=== PATIENT | female | born 1940 | race Caucasian/White ===

== ENCOUNTER 2016-11-28 17:52 | Emergency (ER) | payer MEDICARE, OTHER ==
[2016-11-28] MEDS ORDERED: IPRATROPIUM 0.5 MG/2.5 ML NEBU INHALATION STA (18:30)
[2016-11-28] MEDS ORDERED: SODIUM CHLORIDE 0.9% 1,000 ML IV STA (18:30)
[2016-11-28] MEDS ORDERED: SODIUM CHLORIDE 0.9% 500 ML IV STA (18:30)
[2016-11-28] MEDS ORDERED: LEVALBUTEROL NEB 1.25 MG/3 ML AMP INHALATION STA (18:31)
[2016-11-28] MEDS ORDERED: KETOROLAC 30 MG/ML 1 ML VIAL IVP STA (18:31)
[2016-11-28 19:15] LABS: Basophils # (A) 0.1 k/uL (0-0.2); Basophils % (A) 1 %; CH 28.2; CHCM 30.5; Eosinophils % (A) 0 %; HCT 28.3 % (34.0-46.0); HDW 3.34; HGB 8.6 gm/dL (11.4-16.0); Hypochromasia Marked; Luc # (Auto) 0.15; Luc % (Auto) 3; Lymphocytes # (A) 0.6 k/uL (1.0-4.8); Lymphocytes % (A) 13 %; MCH 28.2 pg (25.0-35.0); MCHC 30.3 g/dL (31.0-37.0); Mean Platelet Volume 8.5; Monocytes # (A) 0.3 k/uL (0-1.0); Monocytes % (A) 8 %; Neutrophils # (A) 3.3 k/uL (1.3-7.7); Neutrophils % (A) 75 %; RBC 3.04 m/uL (3.80-5.40); RDW 14.9 % (11.5-15.5); WBC 4.4 k/uL (3.8-10.6); WBC (Perox) 4.59
[2016-11-28 19:25] LABS: ALT 22 U/L (9-52); AST 24 U/L (14-36); Alkaline Phosphatase 58 U/L (38-126); Anion Gap 9 mmol/L; Blood Urea Nitrogen 16 mg/dL (7-17); Carbon Dioxide 39 mmol/L (22-30); Chloride 90 mmol/L (98-107); Glucose 96 mg/dL (74-99); Non-African American GFR(MDRD) >60 (>60 ml/min/1.73 sqM); Potassium 3.7 mmol/L (3.5-5.1); Sodium 138 mmol/L (137-145); Total Bilirubin 0.7 mg/dL (0.2-1.3); Total Protein 7.1 g/dL (6.3-8.2)
--- NOTE | 2016-11-28 19:37 | ED ---
General Adult HPI - General Source: patient Mode of arrival: wheelchair Limitations: no limitations <Joey Shaw - Last Filed: 11/28/16 19:35> <Pascual Mcintosh - Last Filed: 11/28/16 20:53> - General Chief complaint: Shortness of Breath Stated complaint: weakness,Diff breathing Time Seen by Provider: 11/28/16 18:17 - History of Present Illness Initial comments: This 75-year-old white female presents complaining of urinary frequency. This started yesterday. She denies any dysuria or urgency. She's also had spells over this past evening of shivering and shaking but denies any known fevers. She's felt somewhat weak and fatigued. She does have history of previous urinary infections. She does have a history of lung cancer which is been in remission for the last 5 years. She has a history of oxygen dependent COPD. She has chronic cough and occasional shortness of breath. She states that this is unchanged from her in normal cough and shortness of breath except for that she missed her 4:00 breathing treatment. She was seen at urgent care prior to arrival and sent to our ER for further evaluation. No other complaints or modifying factors. (Joey Shaw) - Related Data Home Medications Medication Instructions Recorded Confirmed Mirtazapine [Remeron] 15 mg PO HS 07/17/14 11/28/16 clonazePAM [KlonoPIN] 0.25 mg PO QID PRN 07/17/14 11/28/16 Levalbuterol Hfa Inhaler [Xopenex 2 puff INHALATION QID PRN 11/20/14 11/28/16 Hfa Inhaler] Acetaminophen Tab [Tylenol] 325 mg PO Q4H PRN 06/15/15 11/28/16 Apixaban [Eliquis] 2.5 mg PO BID 06/15/15 11/28/16 Metoprolol Tartrate [Lopressor] 50 mg PO TID 06/15/15 11/28/16 Mometasone/Formoterol [Dulera 100 2 puff PO RT-Q12H 06/15/15 11/28/16 Mcg/5 Mcg Inhaler] amLODIPine [Norvasc] 5 mg PO DAILY 06/15/15 11/28/16 traMADol HCL [Ultram] 100 mg PO QID PRN 06/15/15 11/28/16 Lisinopril [Zestril] 10 mg PO TID 07/24/16 11/28/16 Cholecalciferol [Vitamin D3] 1,000 unit PO DAILY 11/28/16 11/28/16 Ipratropium Nebulized [Atrovent 0.5 mg INHALATION RT-QID PRN 11/28/16 11/28/16 Nebulized] Levalbuterol Nebulized [Xopenex 1.25 mg INHALATION RT-DAILY PRN 11/28/16 Nebulized] Multivitamin [Multivitamins Adult 1 tab PO DAILY 11/28/16 11/28/16 Gummies] Oxymetazoline 0.05% Nasl [place] 2 spray EA NOSTRIL DAILY PRN 11/28/16 11/28/16 [Afrin 0.05% Nasal [place]] Saline Nasal [place] 2 spray NASAL DAILY PRN 11/28/16 11/28/16 Previous Rx's Medication Instructions Recorded Levofloxacin [Levaquin] 500 mg PO DAILY #7 tab 11/28/16 Allergies Allergy/AdvReac Type Severity Reaction Status Date / Time erythromycin base Allergy Intermediate Unknown Verified 11/28/16 18:48 [Erythromycin Base] amoxicillin [From Augmentin] Allergy Nausea Verified 11/28/16 18:48 clavulanic acid Allergy Nausea Verified 11/28/16 18:48 [From Augmentin] Review of Systems ROS Other: All systems not noted in ROS Statement are negative. <Joey Shaw - Last Filed: 11/28/16 19:35> ROS Other: All systems not noted in ROS Statement are negative. <Pascual Mcintosh - Last Filed: 11/28/16 20:53> ROS Statement: Those systems with pertinent positive or pertinent negative responses have been documented in the HPI. Past Medical History Past Medical History: Atrial Fibrillation, Cancer, COPD, Hypertension Additional Past Medical History / Comment(s): Lung cancer History of Any Multi-Drug Resistant Organisms: None Reported Past Surgical History: Cholecystectomy Additional Past Surgical History / Comment(s): Right middle lobectomy, wedge resection of a right upper lobe lesion, radiation therapy/CyberKnife therapy to the lung nodule, resection of a esophageal cancer with esophagectomy trans- hiatal Additional Past Anesthesia/Blood Transfusion Reaction / Comment(s): slow to come out of anesthesia Past Psychological History: Anxiety Additional Psychological History / Comment(s): PT LIVES ALONE IN AN APARTMENT. SHE IS SELF SUFFICIENT. SHE HAS A SON AND ROSAURA WHO ARE ALWAYS AVAILABLE AND A BIG HELP TO PT. PT DRIVES A CAR. Smoking Status: Former smoker Past Alcohol Use History: None Reported Past Drug Use History: None Reported - Past Family History Father Family Medical History: Renal Disease, Vascular Disorder Additional Family Medical History / Comment(s): FATHER HAD PERIPHERAL VASCULAR TEST AND IT CAUSED HIM TO LOOSE A KIDNEY Mother Family Medical History: COPD <Joey Shaw - Last Filed: 11/28/16 19:35> General Exam Limitations: no limitations <Joey Shaw - Last Filed: 11/28/16 19:35> <Pascual Mcintosh - Last Filed: 11/28/16 20:53> - General Exam Comments Initial Comments: GENERAL: The patient is well nourished and well hydrated. VITAL SIGNS: Heart rate, blood pressure, respiratory rate reviewed as recorded in nurse's notes. EYES: Pupils are round and reactive. Extraocular movements are intact. No conjunctival / lid redness or swelling. ENT: No external evidence of injury, swelling, or ecchymosis. Airway is patent. Throat is clear. NECK: Nontender. No swelling or evidence of injury. No subcutaneous emphysema. Trachea is midline. No thyroid mass. HEART: Regular rate and rhythm. Good peripheral pulses. LUNGS/CHEST: Mild scattered wheezes noted. No respiratory distress. No ecchymosis, subcutaneous emphysema, or tenderness. ABDOMEN: Abdomen soft without tenderness. No palpable masses or organomegaly. No peritoneal signs. No abdominal wall swelling or ecchymosis. EXTREMITIES: No extremity tenderness. Normal muscle tone and function. No thoracolumbar tenderness. NEUROLOGIC: Sensation is grossly intact. Cranial nerve exam reveals face is symmetrical, tongue is midline, speech is clear. SKIN: No abrasions or ecchymosis is noted. No induration or masses noted. PSYCHIATRIC: Alert and oriented. Appropriate behavior and judgment. (Joey Shaw) Medical Decision Making - Lab Data Result diagrams: 11/28/16 19:00 11/28/16 19:00 <Joey Shaw - Last Filed: 11/28/16 19:35> - Lab Data Result diagrams: 11/28/16 19:00 11/28/16 19:00 <Pascual Mcintosh - Last Filed: 11/28/16 20:53> - Medical Decision Making The patient was seen and examined. An EKG was done which shows a normal sinus rhythm at a rate of 68. There is evidence of left ventricular hypertrophy. There is some inverted T waves in leads V1 and V2. The CO interval is 126, QRS duration is 96, and QTC intervals 438. The patient did receive a Xopenex and Atrovent breathing treatment. Studies are currently pending and further care will be passed off to Dr. Bautista. (Joey Shaw) Patient was signed out to me pending the remainder of her studies which have come back and point towards urinary tract infection as Dr. shaw was suspecting. I addition the patient does have some anemia but this is a chronic issue when searched the past labs. The patient does feel well after having the nebulized treatment. I did discuss admission to have course of antibiotics but the patient is refusing, wanting to take outpatient antibiotics. She will follow with her physician Dr. Watson. We discussed return parameters. (Pascual Mcintosh) - Lab Data Lab Results 11/28/16 11/28/16 11/28/16 Range/Units 19:00 19:00 20:15 WBC 4.4 (3.8-10.6) k/uL RBC 3.04 L (3.80-5.40) m/uL Hgb 8.6 L (11.4-16.0) gm/dL Hct 28.3 L (34.0-46.0) % MCV 93.0 (80.0-100.0) fL MCH 28.2 (25.0-35.0) pg MCHC 30.3 L (31.0-37.0) g/dL RDW 14.9 (11.5-15.5) % Plt Count 251 (150-450) k/uL Neutrophils % 75 % Lymphocytes % 13 % Monocytes % 8 % Eosinophils % 0 % Basophils % 1 % Neutrophils # 3.3 (1.3-7.7) k/uL Lymphocytes # 0.6 L (1.0-4.8) k/uL Monocytes # 0.3 (0-1.0) k/uL Eosinophils # 0.0 (0-0.7) k/uL Basophils # 0.1 (0-0.2) k/uL Hypochromasia Marked Sodium 138 (137-145) mmol/L Potassium 3.7 (3.5-5.1) mmol/L Chloride 90 L (98-107) mmol/L Carbon Dioxide 39 H (22-30) mmol/L Anion Gap 9 mmol/L BUN 16 (7-17) mg/dL Creatinine 0.86 (0.52-1.04) mg/dL Est GFR (MDRD) Af Amer >60 (>60 ml/min/1.73 sqM) Est GFR (MDRD) Non-Af >60 (>60 ml/min/1.73 sqM) Glucose 96 (74-99) mg/dL Calcium 9.0 (8.4-10.2) mg/dL Total Bilirubin 0.7 (0.2-1.3) mg/dL AST 24 (14-36) U/L ALT 22 (9-52) U/L Alkaline Phosphatase 58 (38-126) U/L Total Protein 7.1 (6.3-8.2) g/dL Albumin 3.9 (3.5-5.0) g/dL Urine Color Yellow Urine Appearance Cloudy H (Clear) Urine pH 6.0 (5.0-8.0) Ur Specific [place] 1.009 (1.001-1.035) Urine Protein 1+ H (Negative) Urine Glucose (UA) Negative (Negative) Urine Ketones Negative (Negative) Urine Blood Moderate H (Negative) Urine Nitrite Negative (Negative) Urine Bilirubin Negative (Negative) Urine Urobilinogen <2.0 (<2.0) mg/dL Ur Leukocyte Esterase Large H (Negative) Urine RBC >182 H (0-5) /hpf Urine WBC >182 H (0-5) /hpf Urine WBC Clumps Many H (None) /hpf Ur Squamous Epith Cells 5 H (0-4) /hpf Urine Bacteria Many H (None) /hpf Hyaline Casts 11 H (0-2) /lpf Urine Mucus Few H (None) /hpf Disposition <Joey Shaw - Last Filed: 11/28/16 19:35> <Pascual Mcintosh - Last Filed: 11/28/16 20:53> Clinical Impression: COPD exacerbation, Urinary tract infection, Anemia Disposition: HOME SELF-CARE Condition: Fair Instructions: Urinary Tract Infection in Women (ED) Prescriptions: Levofloxacin [Levaquin] 500 mg PO DAILY #7 tab Referrals: Alex Thomas MD [Primary Care Provider] - 1-2 days
--- NOTE | 2016-11-28 19:52 | XR ---
EXAMINATION TYPE: XR chest 2V DATE OF EXAM: 11/28/2016 7:39 PM COMPARISON: NONE HISTORY: Cough TECHNIQUE: Frontal and lateral views of the chest are obtained. FINDINGS: There is pulmonary hyperinflation and flattening of the diaphragm. There is a 3 cm area of masslike density in the lateral right upper lobe. There is fluid in the right major fissure. There a re no hilar masses. Thoracic aorta is atheromatous. There is no heart failure. There are chest leads. There is some interstitial infiltrate in the left lower lobe. IMPRESSION: COPD and probably fibrosis. There is pleural-based right upper lobe density that could r elate to loculated pleural fluid. There is some loculated fluid in a fissure over the heart that is p robably the right major fissure. No heart failure. I see no increasing pulmonary density compared to the chest x-ray of 11/20/2014. There is possible large air-filled thoracic esophagus.
[2016-11-28 20:18] VITALS: RESP 16
[2016-11-28 20:38] LABS: Appearance,Urine Cloudy (Clear); Bacteria,Urine Many /hpf; Bilirubin,Urine Negative (Negative); Glucose,Urine (UA) Negative (Negative); Ketones,Urine Negative (Negative); Leukocyte Esterase,Urine Large (Negative); Mucus,Urine Few /hpf; Nitrite,Urine Negative (Negative); Particle Count 113020; Protein,Urine 1+ (Negative); RBC,Urine >182 /hpf (0-5); Specific Gravity,Urine 1.009 (1.001-1.035); Squamous Epithelial Cell,Urine 5 /hpf (0-4); UA Billing (MACRO vs. MICRO) MICRO; Urobilinogen,Urine <2.0 mg/dL (<2.0); WBC,Urine >182 /hpf (0-5)
[2016-11-28] MEDS ORDERED: LEVOFLOXACIN 500 MG TAB PO STA (20:42)
[2016-11-28 20:52] VITALS: BP 155/70; PULSE 75; TEMP 97.8
== END 2016-11-28 21:30 | disposition home or self-care (01) ==
LOC: EC 17:52
DX: J44.1 Chronic obstructive pulmonary disease with (acute) exacerbation (principal); N39.0 Urinary tract infection, site not specified; D64.9 Anemia, unspecified; Z99.81 Dependence on supplemental oxygen; I10 Essential (primary) hypertension; I48.91 Unspecified atrial fibrillation; F41.9 Anxiety disorder, unspecified; Z85.118 Personal history of other malignant neoplasm of bronchus and lung; Z79.01 Long term (current) use of anticoagulants; Z79.51 Long term (current) use of inhaled steroids; Z79.899 Other long term (current) drug therapy; Z88.0 Allergy status to penicillin; Z88.1 Allergy status to other antibiotic agents; Z88.8 Allergy status to other drugs, medicaments and biological substances; Z87.891 Personal history of nicotine dependence
CPT/HCPCS: 36415; 94640; 80053; 85025; 81001; 87040; 87086; 87077; 87186; 71020; 99285; 96374; 96361 ×2; J1885; 93005

== ENCOUNTER 2016-12-03 09:57 | Inpatient (IN) | payer MEDICARE, OTHER ==
--- NOTE | 2016-12-03 10:15 | ED ---
Chest Pain HPI - General Chief Complaint: Chest Pain Stated Complaint: Chest Pain Time Seen by Provider: 12/03/16 10:00 Source: patient, EMS, RN notes reviewed, old records reviewed Mode of arrival: EMS Limitations: no limitations - History of Present Illness Initial Comments: This is a 76-year-old female history of lung cancer with resection also history of COPD and hypertension who is brought in by EMS with complaints of chest pain and tightness it was severe this morning she was noted have blood pressure 225/ 110 evidence of atrial flutter. Patient is cleared decreased oral intake over last couple days she states she's had some sick a couple days ago. She apparently was seen in the emergency department and thought to have a urinary tract infection was started on antibiotics cigarette by her doctor after a couple days of antibiotics. She denies any fevers chills or sweats just feels generally weak she was given 325 mg aspirin and 3 nitroglycerin the pain is now apparently gone. She stated she never had pain like this quite before. MD Complaint: chest pain, other - Related Data Home Medications Medication Instructions Recorded Confirmed Mirtazapine [Remeron] 15 mg PO HS 07/17/14 12/03/16 clonazePAM [KlonoPIN] 0.25 mg PO QID PRN 07/17/14 12/03/16 Levalbuterol Hfa Inhaler [Xopenex 2 puff INHALATION QID PRN 11/20/14 12/03/16 Hfa Inhaler] Acetaminophen Tab [Tylenol] 325 mg PO Q4H PRN 06/15/15 12/03/16 Apixaban [Eliquis] 2.5 mg PO BID 06/15/15 12/03/16 Metoprolol Tartrate [Lopressor] 50 mg PO TID 06/15/15 12/03/16 Mometasone/Formoterol [Dulera 100 2 puff PO RT-Q12H 06/15/15 12/03/16 Mcg/5 Mcg Inhaler] amLODIPine [Norvasc] 5 mg PO DAILY 06/15/15 12/03/16 traMADol HCL [Ultram] 100 mg PO QID PRN 06/15/15 12/03/16 Lisinopril [Zestril] 10 mg PO TID 07/24/16 12/03/16 Cholecalciferol [Vitamin D3] 1,000 unit PO DAILY 11/28/16 12/03/16 Ipratropium Nebulized [Atrovent 0.5 mg INHALATION RT-QID PRN 11/28/16 12/03/16 Nebulized] Levalbuterol Nebulized [Xopenex 1.25 mg INHALATION RT-DAILY PRN 11/28/16 Nebulized] Multivitamin [Multivitamins Adult 1 tab PO DAILY 11/28/16 12/03/16 Gummies] Oxymetazoline 0.05% Nasl [place] 2 spray EA NOSTRIL DAILY PRN 11/28/16 12/03/16 [Afrin 0.05% Nasal [place]] Saline Nasal [place] 2 spray NASAL DAILY PRN 11/28/16 12/03/16 Levofloxacin [Levaquin] 500 mg PO DIRECTED 12/03/16 12/03/16 Allergies Allergy/AdvReac Type Severity Reaction Status Date / Time erythromycin base Allergy Intermediate Unknown Verified 12/03/16 10:36 [Erythromycin Base] amoxicillin [From Augmentin] Allergy Nausea Verified 12/03/16 10:36 clavulanic acid Allergy Nausea Verified 12/03/16 10:36 [From Augmentin] Review of Systems ROS Statement: Those systems with pertinent positive or pertinent negative responses have been documented in the HPI. ROS Other: All systems not noted in ROS Statement are negative. EKG Findings - EKG Results: EKG: interpreted by [facility], sinus rhythm (Sinus rhythm rate 83. Arrival 128 QRS duration 82 daily since QTC of 386/453 incomplete right bundle-branch block LVH no definite acute ST-T wave elevation artifact is present.) Past Medical History Past Medical History: Atrial Fibrillation, Cancer, COPD, Hypertension Additional Past Medical History / Comment(s): Lung cancer History of Any Multi-Drug Resistant Organisms: None Reported Past Surgical History: Cholecystectomy Additional Past Surgical History / Comment(s): Right middle lobectomy, wedge resection of a right upper lobe lesion, radiation therapy/CyberKnife therapy to the lung nodule, resection of a esophageal cancer with esophagectomy trans- hiatal Additional Past Anesthesia/Blood Transfusion Reaction / Comment(s): slow to come out of anesthesia Past Psychological History: Anxiety Additional Psychological History / Comment(s): PT LIVES ALONE IN AN APARTMENT. SHE IS SELF SUFFICIENT. SHE HAS A SON AND ROSAURA WHO ARE ALWAYS AVAILABLE AND A BIG HELP TO PT. PT DRIVES A CAR. Smoking Status: Former smoker Past Alcohol Use History: None Reported Past Drug Use History: None Reported - Past Family History Father Family Medical History: Renal Disease, Vascular Disorder Additional Family Medical History / Comment(s): FATHER HAD PERIPHERAL VASCULAR TEST AND IT CAUSED HIM TO LOOSE A KIDNEY Mother Family Medical History: COPD General Exam - General Exam Comments Initial Comments: This is a well-developed sec appearing female she is somewhat lethargic Limitations: no limitations General appearance: alert, in no apparent distress Head exam: Present: atraumatic, normocephalic, normal inspection Eye exam: Present: normal appearance, PERRL, EOMI. Absent: scleral icterus, conjunctival injection, periorbital swelling ENT exam: Present: mucous membranes dry Neck exam: Present: normal inspection. Absent: tenderness, meningismus, lymphadenopathy Respiratory exam: Present: decreased breath sounds Cardiovascular Exam: Present: regular rate, normal rhythm, normal heart sounds. Absent: systolic murmur, diastolic murmur, rubs, gallop, clicks GI/Abdominal exam: Present: soft, normal bowel sounds. Absent: distended, tenderness, guarding, rebound, rigid Extremities exam: Present: normal inspection, full ROM, normal capillary refill. Absent: tenderness, pedal edema, joint swelling, calf tenderness Back exam: Present: normal inspection Neurological exam: Present: alert, oriented X3, CN II-XII intact Psychiatric exam: Present: normal affect, normal mood Skin exam: Present: warm, dry, intact, normal color. Absent: rash Course Vital Signs 12/03/16 12/03/16 12/03/16 10:03 11:45 13:33 Temperature 98.1 F 98.6 F Pulse Rate 85 68 75 Respiratory 16 18 20 Rate Blood Pressure 190/94 172/76 164/90 O2 Sat by Pulse 94 L 95 98 Oximetry 12/03/16 12/03/16 12/03/16 14:11 14:22 14:37 Temperature Pulse Rate 70 72 78 Respiratory 20 Rate Blood Pressure 168/92 O2 Sat by Pulse 100 Oximetry - Reevaluation(s) Reevaluation #1: 12/03/16 15:17 I did reevaluate patient several occasions she was somewhat improved with respect to breathing no chest pain Chest Pain [facility] Patient was relieved of her pain she is still somewhat dyspneic and does get hypoxic with exertion. I did discuss case with her to family and with Dr. Thomas patient be admitted with consultation by cardiology. Critical Care Time Critical Care Time: Yes Critical Care Time: 31 minutes of critical care time which includes initial presentation with history and physical also monitoring the EMS run and discussed with paramedics. Discussed with patient family review of old charting. Reevaluation patient several occasions. Admission orders discussion with the attending and review and documentation of the above. Disposition Clinical Impression: Atypical chest pain, Congestive heart failure, COPD exacerbation Disposition: ADMITTED IP TO THIS HOSP Condition: Stable
[2016-12-03 10:32] LABS: Basophils % (A) 1 %; CH 27.9; CHCM 30.1; Eosinophils % (A) 1 %; HCT 30.9 % (34.0-46.0); HDW 3.47; HGB 9.3 gm/dL (11.4-16.0); Hypochromasia Marked; Luc # (Auto) 0.16; Luc % (Auto) 3; Lymphocytes # (A) 0.4 k/uL (1.0-4.8); Lymphocytes % (A) 8 %; MCH 28.1 pg (25.0-35.0); MCHC 30.2 g/dL (31.0-37.0); MCV 93.1 fL (80.0-100.0); Mean Platelet Volume 7.9; Monocytes # (A) 0.3 k/uL (0-1.0); Monocytes % (A) 6 %; Neutrophils % (A) 82 %; Poikilocytosis Slight; RBC 3.32 m/uL (3.80-5.40); RDW 14.7 % (11.5-15.5); WBC 4.9 k/uL (3.8-10.6); WBC (Perox) 5.09
[2016-12-03 10:46] LABS: INR 1.1 (<1.1); Partial Thromboplastin Time 26.4 sec (22.0-30.0)
[2016-12-03 10:48] LABS: ALT 22 U/L (9-52); AST 29 U/L (14-36); Alkaline Phosphatase 56 U/L (38-126); Amylase 40 U/L (30-110); Anion Gap 11 mmol/L; Blood Urea Nitrogen 16 mg/dL (7-17); Calcium 9.2 mg/dL (8.4-10.2); Carbon Dioxide 36 mmol/L (22-30); Chloride 94 mmol/L (98-107); Glucose 114 mg/dL (74-99); Magnesium 1.6 mg/dL (1.6-2.3); Non-African American GFR(MDRD) >60 (>60 ml/min/1.73 sqM); Sodium 141 mmol/L (137-145); Total Bilirubin 0.7 mg/dL (0.2-1.3); Total Protein 7.6 g/dL (6.3-8.2)
[2016-12-03 10:58] LABS: Creatine Kinase 28 U/L (30-135); Potassium 4.1 mmol/L (3.5-5.1)
[2016-12-03 11:12] LABS: Creatine Kinase MB 1.6 ng/mL (0.0-2.4); Troponin I <0.012 ng/mL (0.000-0.034)
--- NOTE | 2016-12-03 11:29 | XR ---
EXAMINATION TYPE: XR chest 2V DATE OF EXAM: 12/03/2016 10:56 AM COMPARISON: Prior chest x-ray 28 November 2016 HISTORY: Shortness of breath, chest pain, lung cancer TECHNIQUE: Frontal and lateral views of the chest are obtained. FINDINGS: Abnormal pleural-based density in the superolateral right chest again noted. Prominent mitch g volumes compatible with underlying COPD. Central vascularity is prominent, the heart is enlarged. N o pneumothorax or pleural effusion. Patient is rotated, there is likely underlying scoliosis. Surgica l clips present at the gastroesophageal junction. Postop changes again noted to the right hemithorax, surgical clips present at the level of the thoracic aorta. There is some retraction of the keith. IMPRESSION: Similar findings to prior exam. Findings compatible with patient's history of lung carci noma and COPD. Cardiomegaly, accentuation in the appearance of the heart may be partially due to unde rlying scoliosis, rotation.
[2016-12-03 11:43] LABS: Appearance,Urine Clear (Clear); Bilirubin,Urine Negative (Negative); Glucose,Urine (UA) Negative (Negative); Ketones,Urine Negative (Negative); Leukocyte Esterase,Urine Negative (Negative); Nitrite,Urine Negative (Negative); PH, Urine 6.5 (5.0-8.0); Particle Count 1916; Protein,Urine Trace (Negative); RBC,Urine 27 /hpf (0-5); Specific Gravity,Urine 1.009 (1.001-1.035); UA Billing (MACRO vs. MICRO) MICRO; Urobilinogen,Urine <2.0 mg/dL (<2.0); WBC,Urine 1 /hpf (0-5)
[2016-12-03] MEDS ORDERED: traMADol 50 MG TAB PO STA (13:44)
[2016-12-03] MEDS ORDERED: ACETAMINOPHEN TAB 325 MG TAB PO STA (13:45)
[2016-12-03] MEDS ORDERED: METOPROLOL TARTRATE 50 MG TAB PO STA (13:52)
[2016-12-03] MEDS ORDERED: IPRATROPIUM-ALBUTEROL 3 ML NEB INHALATION STA (13:53)
[2016-12-03] MEDS ORDERED: METOPROLOL TARTRATE 25 MG TAB PO STA (13:57)
[2016-12-03] MEDS ORDERED: LEVALBUTEROL NEB 1.25 MG/3 ML AMP INHALATION STA (14:03)
[2016-12-03] MEDS ORDERED: NITROGLYCERIN OINT 1 INCH/GM PACKET TOPICAL STA (15:17)
[2016-12-03] MEDS ORDERED: FUROSEMIDE 10 MG/ML 4 ML VIAL IV STA (15:17)
[2016-12-03] MEDS: SODIUM CHLORIDE 0.9% 1,000 ML IV SCH (15:44)
[2016-12-03] MEDS: NITROGLYCERIN OINT 1 INCH/GM PACKET TOPICAL SCH ×2 (17:33→20:30)
[2016-12-03] MEDS: LISINOPRIL 10 MG TAB PO SCH ×2 (17:33→20:30)
[2016-12-03] MEDS: LEVALBUTEROL NEB 1.25 MG/3 ML AMP INHALATION SCH ×2 (18:28→19:51)
[2016-12-03] MEDS: ACETAMINOPHEN TAB 325 MG TAB PO PRN ×2 (20:28→23:51)
[2016-12-03] MEDS: traMADol 50 MG TAB PO PRN (20:29)
[2016-12-03] MEDS: clonazePAM 0.5 MG TAB PO PRN (20:29)
[2016-12-03] MEDS: APIXABAN 2.5 MG TABLET PO SCH (20:30)
[2016-12-03] MEDS: FUROSEMIDE 10 MG/ML 4 ML VIAL IV SCH (20:30)
[2016-12-03] MEDS: METOPROLOL TARTRATE 50 MG TAB PO SCH (20:30)
[2016-12-03] MEDS: NON-FORMULARY DRUG (Mometasone/Formoterol [Dulera 100 Mcg/5 Mcg Inhaler] 2 PUFF) PO SCH (23:54)
[2016-12-04] MEDS: LEVALBUTEROL NEB 1.25 MG/3 ML AMP INHALATION SCH ×5 (00:29→20:40)
[2016-12-04] MEDS: traMADol 50 MG TAB PO PRN ×3 (01:22→14:15)
[2016-12-04] MEDS: MIRTAZAPINE 15 MG TAB PO SCH ×2 (01:22→20:41)
[2016-12-04] MEDS: clonazePAM 0.5 MG TAB PO PRN ×3 (01:22→20:51)
[2016-12-04] MEDS ORDERED: cloNIDine HCL 0.1 MG TAB PO STA (06:25)
[2016-12-04 06:42] LABS: Basophils % (A) 1 %; CH 27.5; CHCM 29.5; Eosinophils % (A) 1 %; HCT 31.2 % (34.0-46.0); HDW 3.43; HGB 9.4 gm/dL (11.4-16.0); Hypochromasia Marked; Luc # (Auto) 0.15; Luc % (Auto) 3; Lymphocytes # (A) 0.8 k/uL (1.0-4.8); Lymphocytes % (A) 17 %; MCV 93.5 fL (80.0-100.0); Mean Platelet Volume 6.8; Monocytes # (A) 0.3 k/uL (0-1.0); Monocytes % (A) 6 %; Neutrophils # (A) 3.3 k/uL (1.3-7.7); Neutrophils % (A) 72 %; Poikilocytosis Slight; RBC 3.34 m/uL (3.80-5.40); RDW 14.5 % (11.5-15.5); WBC 4.5 k/uL (3.8-10.6); WBC (Perox) 4.79
[2016-12-04 06:52] LABS: Blood Urea Nitrogen 25 mg/dL (7-17); Calcium 9.1 mg/dL (8.4-10.2); Chloride 87 mmol/L (98-107); Glucose 99 mg/dL (74-99); Magnesium 1.5 mg/dL (1.6-2.3); Non-African American GFR(MDRD) >60 (>60 ml/min/1.73 sqM); Phosphorous 5.1 mg/dL (2.5-4.5); Potassium 3.4 mmol/L (3.5-5.1); Sodium 142 mmol/L (137-145)
[2016-12-04 06:58] LABS: Anion Gap 14 mmol/L
[2016-12-04] MEDS: ACETAMINOPHEN TAB 325 MG TAB PO PRN ×2 (07:01→16:21)
[2016-12-04 07:28] LABS: Carbon Dioxide 41 mmol/L (22-30)
[2016-12-04] MEDS: APIXABAN 2.5 MG TABLET PO SCH ×2 (07:45→20:40)
[2016-12-04] MEDS: LISINOPRIL 10 MG TAB PO SCH ×3 (07:47→20:42)
[2016-12-04] MEDS: ASPIRIN 325 MG TAB PO SCH (07:47)
[2016-12-04] MEDS: amLODIPine 5 MG TAB PO SCH (07:47)
[2016-12-04] MEDS: METOPROLOL TARTRATE 50 MG TAB PO SCH ×3 (07:47→20:42)
[2016-12-04] MEDS: FUROSEMIDE 10 MG/ML 4 ML VIAL IV SCH ×2 (07:47→20:41)
[2016-12-04] MEDS: NITROGLYCERIN OINT 1 INCH/GM PACKET TOPICAL SCH ×4 (07:48→20:42)
[2016-12-04] MEDS ORDERED: Potassium Replacement Protocol 1 EACH MISC MISCELLANE PRN (08:25)
[2016-12-04] MEDS ORDERED: Magnesium Replacement Protocol 1 EACH MISC MISCELLANE PRN (08:25)
[2016-12-04] MEDS ORDERED: ONDANSETRON 4 MG/2 ML VIAL IVP PRN (09:20)
[2016-12-04] MEDS: MAGNESIUM SULFATE-D5W PMX 1 GM in DEXTROSE/WATER 1 100ML.BAG IVPB SCH ×2 (09:45→10:59)
[2016-12-04] MEDS: POTASSIUM CHLORIDE ER 20 MEQ TAB.ER PO SCH ×2 (09:45→10:59)
[2016-12-04] MEDS: NON-FORMULARY DRUG (Mometasone/Formoterol [Dulera 100 Mcg/5 Mcg Inhaler] 2 PUFF) PO SCH (10:09)
--- NOTE | 2016-12-04 10:41 | CONS ---
DATE OF CONSULTATION: Danuta Villalobos is a 76-year-old lady with history of lung cancer, status post resection, severe COPD, hypertension, and history of atrial fibrillation who presented to hospital with worsening shortness of breath of the last 2 days. She states that she has had mild to moderate shortness of breath and feels some vague tightness in her chest. She also complains of palpitations and on initial presentation, she was in sinus rhythm and had elevated BNP due to which we are treating her as acute onset congestive heart failure. An echocardiogram more than a year ago showed normal LV function. Her congestive heart failure is probably diastolic in nature, but most of her symptoms are probably related to her CA lung and the lung resection that she had. At the time of my evaluation this morning, she appears somewhat confused and is not able to answer questions optimally. Past medical history is significant for atrial fibrillation, COPD, hypertension. Current medications include Levaquin, Ultram, Norvasc 5 mg daily, Klonopin, multivitamin, Remeron, Lopressor 50 t.i.d., lisinopril 10 t.i.d., Xopenex, Atrovent, vitamin D, Eliquis and Tylenol. Allergies are as charged and include AMOXICILLIN, AUGMENTIN and ERYTHROMYCIN. Family history is negative for premature coronary artery disease. SOCIAL HISTORY: Negative for current smoking, EtOH abuse, or drug abuse. REVIEW OF SYSTEMS: HEENT: Unremarkable. CARDIAC: As described above. RESPIRATORY: As described above. GI: Negative. GENITOURINARY: Negative. ALLERGY/IMMUNOLOGY: Negative. SKIN: Negative. MUSCULOSKELETAL: Significant for arthritis, chronic pain. PSYCHOSOCIAL: Negative. ENDOCRINE: Negative. HEMATOLOGIC: Negative. DERMATOLOGIC: Negative. ONCOLOGICAL: Significant for CA lung. The rest of the system review is not relevant. On exam, patient is comfortable at rest, afebrile. Heart rate is 80 beats per minute, blood pressure is 130/86, respiratory rate 18. There is no jugular venous distention. Chest exam reveals diminished air entry with occasional rhonchi. Heart exam reveals first and second heart sounds. Systolic murmur at the left lower sternal border. Abdomen soft. Exam of extremities did not reveal any edema. Peripheral pulses are felt. Labs show a potassium of 3.4. Three sets of tropes are negative. BNP is elevated. Creatinine is 0.68 ASSESSMENT: 1. Shortness of breath due to a combination of chronic obstructive pulmonary disease and acute onset diastolic heart failure. 2. History of atrial fibrillation. 3. Hypertension. 4. Chronic obstructive pulmonary disease. 5. History of cancer of lung. PLAN: I will continue the patient on IV Lasix; hopefully can be converted to p.o. Lasix tomorrow. Continue the current antihypertensive and Eliquis. I will obtain a 2-D echo to document her LV function.
[2016-12-04] MEDS: CHOLECALCIFEROL 1,000 UNIT TAB PO SCH (11:00)
[2016-12-04] MEDS: MULTIVITAMINS, THERA 1 EACH TAB PO SCH (11:00)
--- NOTE | 2016-12-04 12:20 | ECHOF ---
Referral Reason:chf MEASUREMENTS -------- HEIGHT: 152.4 cm WEIGHT: 43.5 kg BP: 132/86 RVIDd: 2.2 cm (< 3.3) IVSd: 1.3 cm (0.6 - 1.1) LVIDd: 3.0 cm (3.9 - 5.3) LVPWd: 1.4 cm (0.6 - 1.1) IVSs: 1.7 cm LVIDs: 2.1 cm LVPWs: 1.6 cm LA Diam: 2.0 cm (2.7 - 3.8) LAESV Index (A-L): 37.67 ml/m Ao Diam: 2.8 cm (2.0 - 3.7) AV Cusp: 1.2 cm (1.5 - 2.6) LA Diam: 3.7 cm (2.7 - 3.8) MV EXCURSION: 11.193 mm (> 18.000) MV EF SLOPE: 29 mm/s (70 - 150) EPSS: 0.3 cm MV E Charan: 0.65 m/s MV DecT: 265 ms MV A Charan: 0.62 m/s MV E/A Ratio: 1.04 AV maxP.78 mmHg AV meanP.52 mmHg AR PHT: 1088 ms RAP: 5.00 mmHg RVSP: 65.18 mmHg FINDINGS -------- Sinus rhythm. This was a technically good study. The left ventricular size is normal. There is moderate concentric left ventricular hypertrophy. Overall left ventricular systolic function is normal with, an EF between 55 - 60 %. The right ventricle is normal in size. LA is moderately dilated 34-39 ml/m2 The right atrial size is normal. There is moderate aortic valve sclerosis. There is mild aortic regurgitation. Peak/mean gradient across the Aortic Valve is 14.78mmHg / 5.52mmHg. Mild mitral annular calcification present. Mild mitral regurgitation is present. Moderate to severe tricuspid regurgitation present. There is moderate to severe pulmonary hypertension. The right ventricular systolic pressure, as measured by Doppler, is 65.18mmHg. Moderate pulmonic regurgitation. The aortic root size is normal. Normal inferior vena cava with normal inspiratory collapse consistent with estimated right atrial pressure of 5 mmHg. There is no pericardial effusion. CONCLUSIONS -------- 1. Sinus rhythm. 2. Mild mitral regurgitation is present. 3. Moderate to severe tricuspid regurgitation present. 4. There is moderate to severe pulmonary hypertension. 5. The right ventricular systolic pressure, as measured by Doppler, is 65.18mmHg. 6. Moderate pulmonic regurgitation. 7. The aortic root size is normal. 8. Normal inferior vena cava with normal inspiratory collapse consistent with estimated right atrial pressure of 5 mmHg. 9. There is no pericardial effusion. 10. This was a technically good study. 11. There is moderate concentric left ventricular hypertrophy. 12. Overall left ventricular systolic function is normal with, an EF between 55 - 60 %. 13. LA is moderately dilated 34-39 ml/m2 14. There is moderate aortic valve sclerosis. 15. There is mild aortic regurgitation. 16. Peak/mean gradient across the Aortic Valve is 14.78mmHg / 5.52mmHg. 17. Mild mitral annular calcification present. PHILOSOPHY SPECIALIST: Jose David Pastor RDCS
--- NOTE | 2016-12-04 14:31 | P.CNPUL ---
History of Present Illness Consult date: 12/04/16 Reason for consult: dyspnea, chest pain, COPD, hypoxemia, lung mass, abnormal CXR/CT Chief complaint: chest pain and shortness of breath History of present illness: This is a 75-year-old female with history of lung cancer postresection history of COPD and hypertension. Patient comes into the emergency department with complaints of shortness of breath and chest pain and tightness. It was severe. Her blood pressure was quite high at 225/110. She had a history of atrial flutter as well. The patient just hasn't been feeling well. 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 Has underlying COPD from tobacco use also has cardiac disease. Chest x-rays consistent with previous history of lung cancer with a pleural-based mass in the superior lateral right upper lung. In addition, some changes of COPD and also some changes of possible fluid overload. The patient's BMP was elevated. Anyway did have a long talk with the daughter. The daughter stated that the patient would not want to be on life support. I think it's appropriate. She is a no code. Review of Systems A 12 point review of system is positive for shortness of breath cough chest congestion tightness and wheezing under the pulmonary system. The rest of the 12 point review of system is unremarkable save for the chest pain which can be placed on cardiovascular system. No fever no chills. No nausea vomiting or diarrhea. 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 SHE IS SELF SUFFICIENT. HAS CANE/WALKER,HOME 02,NEBULIZER. SHE HAS A SON AND ROSAURA WHO ARE ALWAYS AVAILABLE AND A BIG HELP TO PT. PT DOES'NT DRIVE ANYMORE Smoking Status: Former smoker Past Alcohol Use History: None Reported Additional Past Alcohol Use History / Comment(s): STARTED SMOKING AT AGE 24 1 PPD, QUIT 2006. Past Drug Use History: None Reported - Past Family History Father Family Medical History: Renal Disease, Vascular Disorder Additional Family Medical History / Comment(s): FATHER HAD PERIPHERAL VASCULAR TEST AND IT CAUSED HIM TO LOOSE A KIDNEY Mother Family Medical History: COPD Medications and Allergies Home Medications Medication Instructions Recorded Confirmed Type Mirtazapine [Remeron] 15 mg PO HS 07/17/14 12/03/16 History clonazePAM [KlonoPIN] 0.25 mg PO QID PRN 07/17/14 12/03/16 History Levalbuterol Hfa Inhaler [Xopenex 2 puff INHALATION QID PRN 11/20/14 12/03/16 History Hfa Inhaler] Acetaminophen Tab [Tylenol] 325 mg PO Q4H PRN 06/15/15 12/03/16 History Apixaban [Eliquis] 2.5 mg PO BID 06/15/15 12/03/16 History Metoprolol Tartrate [Lopressor] 50 mg PO TID 06/15/15 12/03/16 History Mometasone/Formoterol [Dulera 100 2 puff PO RT-Q12H 06/15/15 12/03/16 History Mcg/5 Mcg Inhaler] amLODIPine [Norvasc] 5 mg PO DAILY 06/15/15 12/03/16 History traMADol HCL [Ultram] 100 mg PO QID PRN 06/15/15 12/03/16 History Lisinopril [Zestril] 10 mg PO TID 07/24/16 12/03/16 History Cholecalciferol [Vitamin D3] 1,000 unit PO DAILY 11/28/16 12/03/16 History Ipratropium Nebulized [Atrovent 0.5 mg INHALATION RT-QID PRN 11/28/16 12/03/16 History Nebulized] Levalbuterol Nebulized [Xopenex 1.25 mg INHALATION RT-DAILY PRN 11/28/16 History Nebulized] Multivitamin [Multivitamins Adult 1 tab PO DAILY 11/28/16 12/03/16 History Gummies] Oxymetazoline 0.05% Nasl [place] 2 spray EA NOSTRIL DAILY PRN 11/28/16 12/03/16 History [Afrin 0.05% Nasal [place]] Saline Nasal [place] 2 spray NASAL DAILY PRN 11/28/16 12/03/16 History Levofloxacin [Levaquin] 500 mg PO DIRECTED 12/03/16 12/03/16 History Allergies Allergy/AdvReac Type Severity Reaction Status Date / Time erythromycin base Allergy Intermediate Unknown Verified 12/03/16 10:36 [Erythromycin Base] amoxicillin [From Augmentin] Allergy Nausea Verified 12/03/16 10:36 clavulanic acid Allergy Nausea Verified 12/03/16 10:36 [From Augmentin] Physical Exam Osteopathic Statement: *. No significant issues noted on an osteopathic structural exam other than those noted in the History and Physical/Consult. Vitals: Vital Signs Temp Pulse Pulse Resp BP BP Pulse Ox 12/04/16 12:00 97.7 F 62 16 120/72 93 L 12/04/16 07:56 97.5 F L 81 18 132/86 98 12/04/16 04:00 85 18 190/90 97 12/04/16 01:00 184/76 12/04/16 00:40 76 12/04/16 00:29 72 12/04/16 00:00 96.8 F L 75 18 198/92 97 12/03/16 20:03 88 12/03/16 20:00 98.4 F 77 18 152/64 98 12/03/16 19:51 88 12/03/16 16:10 97.5 F L 77 18 162/74 98 12/03/16 16:02 98.2 F 77 20 152/90 100 Intake and Output 12/03/16 12/04/16 12/04/16 22:59 06:59 14:59 Intake Total 240 Output Total 600 600 Balance -600 -360 Intake: IV 240 Sodium Chloride 0.9% 1, 240 000 ml @ 20 mls/hr IV . Q24H [facility] Rx#:[id number] Output: Urine 600 600 Other: Voiding Method Bedpan Bedpan Bedpan # Voids 0 # Bowel Movements 0 Weight 43.7 kg 43.7 kg Patient Weight 12/05/16 06:59 Weight 43.7 kg No acute distress, the patient is mildly tachypneic and dyspneic. Some conversational dyspnea. Wearing her nasal O2. HEENT examination is grossly unremarkable. Mucous membranes are moist. No oral lesions. Neck supple. Full range of motion. No adenopathy. Cardiovascular examination reveals irregular rhythm and rate. S1-S2 normal. No S3-S4. No distinct murmurs noted. Lungs reveal some bibasilar crackles. This some coarse rhonchi. Breath sounds are diminished throughout. Abdomen soft. Scaphoid. Extremities are intact. No edema. Results - Laboratory Findings CBC and BMP: 12/04/16 06:20 12/04/16 06:20 PT/INR, D-dimer PT 11.0 sec (9.0-12.0) 12/03/16 10:15 INR 1.1 (<1.1) 12/03/16 10:15 Abnormal lab findings: Abnormal Labs 12/04/16 12/04/16 06:20 06:20 RBC 3.34 L Hgb 9.4 L Hct 31.2 L MCHC 30.0 L Lymphocytes # 0.8 L Potassium 3.4 L Chloride 87 L Carbon Dioxide 41 H* BUN 25 H Phosphorus 5.1 H Magnesium 1.5 L - Diagnostic Findings Chest x-ray: image reviewed (chest x-ray labs and medications are all reviewed.) Assessment and Plan (1) Lung cancer Status: Acute (2) Atypical chest pain Status: Acute (3) COPD exacerbation Status: Acute (4) Congestive heart failure Status: Acute (5) Afib Status: Acute Plan: Plan dated 12/04/2016 The patient should be continued on steroids breathing treatments antibiotics and diuretics. We'll hope for the best. The patient's overall prognosis is poor. The patient has a history of lung cancer COPD and heart failure. In addition she has a history of atrial fibrillation with RVR. Again we'll continue to follow closely. Prognosis is not very good. Time with Patient: Greater than 30
--- NOTE | 2016-12-04 15:18 | P.HPIM ---
History of Present Illness H&P Date: 12/04/16 Chief Complaint: Shortness of breath Patient is a 76-year-old male, patient of Dr. Thomas in the outpatient setting, with medical history significant for lung cancer with resection, COPD, chronic hypoxic respiratory failure on home O2, atrial fibrillation, and hypertension, admitted through the emergency department via EMS with complaints of increased shortness of breath and chest pressure ongoing for approximately 3 days. Patient recently finished a course of antibiotics for urinary tract infection. No history of fevers, chills, sweats, nausea, vomiting , or abdominal pain. No urinary urgency, dysuria, hematuria. No history of constipation or diarrhea. EKG on admission with evidence of ruben sinus rhythm with incomplete right bundle branch block with no definite acute ischemia. Chest x-ray with evidence of lung carcinoma, cardiomegaly, and COPD. Echocardiogram with evidence of preserved left ventricular systolic function with an EF between 55-60%; moderate aortic valve sclerosis; moderate to severe tricuspid regurgitation; and moderate to severe pulmonary hypertension. Patient 's blood pressure was elevated at 190/94 in the emergency department. Troponins less than 0.0122, NT proBNP elevated at 3790. Patient was admitted into selective care unit will consult requested for pulmonary service and cardiology service. Upon examination, patient is sitting up in the chair. Patient continues to complain of chest pressure and shortness of breath but states it's better than when she got here. Denies chills, fevers, nausea, vomiting, or abdominal pain. Patient is urinating without difficulty. No bowel movements since admission. Afebrile. Blood pressure 120/72. Potassium 3.4 this morning, magnesium 1.5. 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 SHE IS SELF SUFFICIENT. HAS CANE/WALKER,HOME 02,NEBULIZER. SHE HAS A SON AND ROSAURA WHO ARE ALWAYS AVAILABLE AND A BIG HELP TO PT. PT DOES'NT DRIVE ANYMORE Smoking Status: Former smoker Past Alcohol Use History: None Reported Additional Past Alcohol Use History / Comment(s): STARTED SMOKING AT AGE 24 1 PPD, QUIT 2006. Past Drug Use History: None Reported - Past Family History Father Family Medical History: Renal Disease, Vascular Disorder Additional Family Medical History / Comment(s): FATHER HAD PERIPHERAL VASCULAR TEST AND IT CAUSED HIM TO LOOSE A KIDNEY Mother Family Medical History: COPD Medications and Allergies Home Medications Medication Instructions Recorded Confirmed Type Mirtazapine [Remeron] 15 mg PO HS 07/17/14 12/03/16 History clonazePAM [KlonoPIN] 0.25 mg PO QID PRN 07/17/14 12/03/16 History Levalbuterol Hfa Inhaler [Xopenex 2 puff INHALATION QID PRN 11/20/14 12/03/16 History Hfa Inhaler] Acetaminophen Tab [Tylenol] 325 mg PO Q4H PRN 06/15/15 12/03/16 History Apixaban [Eliquis] 2.5 mg PO BID 06/15/15 12/03/16 History Metoprolol Tartrate [Lopressor] 50 mg PO TID 06/15/15 12/03/16 History Mometasone/Formoterol [Dulera 100 2 puff PO RT-Q12H 06/15/15 12/03/16 History Mcg/5 Mcg Inhaler] amLODIPine [Norvasc] 5 mg PO DAILY 06/15/15 12/03/16 History traMADol HCL [Ultram] 100 mg PO QID PRN 06/15/15 12/03/16 History Lisinopril [Zestril] 10 mg PO TID 07/24/16 12/03/16 History Cholecalciferol [Vitamin D3] 1,000 unit PO DAILY 11/28/16 12/03/16 History Ipratropium Nebulized [Atrovent 0.5 mg INHALATION RT-QID PRN 11/28/16 12/03/16 History Nebulized] Levalbuterol Nebulized [Xopenex 1.25 mg INHALATION RT-DAILY PRN 11/28/16 History Nebulized] Multivitamin [Multivitamins Adult 1 tab PO DAILY 11/28/16 12/03/16 History Gummies] Oxymetazoline 0.05% Nasl [place] 2 spray EA NOSTRIL DAILY PRN 11/28/16 12/03/16 History [Afrin 0.05% Nasal [place]] Saline Nasal [place] 2 spray NASAL DAILY PRN 11/28/16 12/03/16 History Levofloxacin [Levaquin] 500 mg PO DIRECTED 12/03/16 12/03/16 History Allergies Allergy/AdvReac Type Severity Reaction Status Date / Time erythromycin base Allergy Intermediate Unknown Verified 12/03/16 10:36 [Erythromycin Base] amoxicillin [From Augmentin] Allergy Nausea Verified 12/03/16 10:36 clavulanic acid Allergy Nausea Verified 12/03/16 10:36 [From Augmentin] Physical Exam Vitals: Vital Signs Temp Pulse Pulse Resp BP BP Pulse Ox 12/04/16 12:00 97.7 F 62 16 120/72 93 L 12/04/16 07:56 97.5 F L 81 18 132/86 98 12/04/16 04:00 85 18 190/90 97 12/04/16 01:00 184/76 12/04/16 00:40 76 12/04/16 00:29 72 12/04/16 00:00 96.8 F L 75 18 198/92 97 12/03/16 20:03 88 12/03/16 20:00 98.4 F 77 18 152/64 98 12/03/16 19:51 88 12/03/16 16:10 97.5 F L 77 18 162/74 98 12/03/16 16:02 98.2 F 77 20 152/90 100 Intake and Output 12/03/16 12/04/16 12/04/16 22:59 06:59 14:59 Intake Total 240 Output Total 600 600 Balance -600 -360 Intake: IV 240 Sodium Chloride 0.9% 1, 240 000 ml @ 20 mls/hr IV . Q24H [facility] Rx#:[id number] Output: Urine 600 600 Other: Voiding Method Bedpan Bedpan Bedpan # Voids 0 # Bowel Movements 0 Weight 43.7 kg 43.7 kg Patient Weight 12/05/16 06:59 Weight 43.7 kg GENERAL: Pt awake and alert, frail looking, thin, in no acute distress. HEAD: Atraumatic, normocephalic. EYES: Pupils equal, round, and reactive to light, extraocular movements intact, sclera anicteric, conjunctiva are normal. ENT: Moist mucous membranes. NECK:Normal range of motion, supple without lymphadenopathy or JVD. LUNGS: Breath sounds diminished to auscultation bilaterally. No wheezes, rales , or rhonchi. HEART: Heart S1, S2, no S3 or S4. Regular rate and rhythm. Systolic murmur. ABDOMEN: Soft, nontender, nondistended, normoactive bowel sounds. No guarding, no rebound. No masses or organomegaly appreciated. EXTREMITIES: Palpable peripheral pulses. Trace edema to bilateral lower extremities. No calf tenderness. NEUROLOGICAL: Pt oriented x 3. Cranial nerves II through XII grossly intact. Strength and sensation grossly intact. PSYCH: Anxious. SKIN: Warm, dry, intact. No rashes or lesions. Results CBC & Chem 7: 12/04/16 06:20 12/04/16 06:20 Labs: Abnormal Lab Results - Last 24 Hours (Table) 12/04/16 12/04/16 Range/Units 06:20 06:20 RBC 3.34 L (3.80-5.40) m/uL Hgb 9.4 L (11.4-16.0) gm/dL Hct 31.2 L (34.0-46.0) % MCHC 30.0 L (31.0-37.0) g/dL Lymphocytes # 0.8 L (1.0-4.8) k/uL Potassium 3.4 L (3.5-5.1) mmol/L Chloride 87 L (98-107) mmol/L Carbon Dioxide 41 H* (22-30) mmol/L BUN 25 H (7-17) mg/dL Phosphorus 5.1 H (2.5-4.5) mg/dL Magnesium 1.5 L (1.6-2.3) mg/dL Chest x-ray: report reviewed Thrombosis Risk Factor Assmnt - DVT/VTE Prophylaxis DVT/VTE Prophylaxis: Pharmacologic Prophylaxis ordered, Mechanical Prophylaxis ordered - Choose All That Apply Any of the Below Risk Factors Present?: Yes Each Factor Represents 1 point: Abnormal pulmonary function (COPD), Heart failure (<1month), Serious lung disease incl. pneumonia (< 1month) Other Risk Factors: Yes Each Risk Factor Represents 2 Points: Malignancy Each Risk Factor Represents 3 Points: Age 75 years or older Other congenital or acquired thrombophilia - If yes, enter type in comment: No Thrombosis Risk Factor Assessment Total Risk Factor Score: 8 Thrombosis Risk Factor Assessment Level: High Risk Assessment and Plan Plan: Impression and plan: 1. Shortness of breath and atypical chest pain, multifactorial suspect secondary to acute COPD exacerbation and acute diastolic congestive heart failure. Cardiology and pulmonology service has been consulted, recommendations noted. Patient is currently on steroids, nebulized updraft treatments, antibiotics, and diuretics. 2. Paroxysmal atrial fibrillation. 3. Hypertension. 4. Anemia, rule out iron deficiency. 5. Chronic hypoxic respiratory failure. Patient on 2 L oxygen around-the- clock at home. 6. Anxiety and depression, stable. 7. Severe pulmonary hypertension. 8. 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 9. History of lung cancer, non-small cell carcinoma status post right middle lobe resection and, nitrate treatment to right upper lobe lesion. 10. History of remote nicotine dependence. Continue to monitor patient. Home medications of been reviewed and resumed. Continue to follow with pulmonary and cardiology service. Continue GI and DVT prophylaxis. Consult physical therapy for decreased endurance. Repeat CBC, BMP in a.m. The above impression and plan have been discussed and directed by Dr. Thomas. Chanell CHÁVEZ acting as scribe for Dr. Thomas.
[2016-12-04] MEDS: SODIUM CHLORIDE 0.9% 1,000 ML IV SCH (16:18)
[2016-12-04] MEDS: methylPREDNISolone SOD SUCCI 125 MG/2 ML VIAL IV SCH (16:22)
[2016-12-04] MEDS: INSULIN LISPRO (humaLOG) 300 UNIT/3 ML VIAL SQ SCH ×2 (16:43→20:51)
[2016-12-04 16:50] LABS: Glucose,Whole Blood 94 mg/dL (75-99)
[2016-12-04] MEDS: FORMOTEROL FUMARATE 20 MCG/2 ML NEBU INHALATION SCH (20:40)
[2016-12-04] MEDS: BUDESONIDE 1 MG/2 ML NEBU INHALATION SCH (20:40)
[2016-12-04] MEDS: SULFAMETHOX-TMP 800-160MG 1 EACH TAB PO SCH (20:42)
[2016-12-04] MEDS: FAMOTIDINE 20 MG TAB PO SCH (20:46)
[2016-12-04 20:49] LABS: Glucose,Whole Blood 121 mg/dL (75-99)
[2016-12-05] MEDS: methylPREDNISolone SOD SUCCI 125 MG/2 ML VIAL IV SCH ×3 (00:25→11:17)
[2016-12-05] MEDS: traMADol 50 MG TAB PO PRN ×2 (04:38→13:43)
[2016-12-05] MEDS: ACETAMINOPHEN TAB 325 MG TAB PO PRN ×2 (04:39→13:43)
[2016-12-05 05:51] LABS: Glucose,Whole Blood 140 mg/dL (75-99)
[2016-12-05] MEDS: INSULIN LISPRO (humaLOG) 300 UNIT/3 ML VIAL SQ SCH ×4 (06:31→22:36)
[2016-12-05 06:55] LABS: Basophils % (A) 0 %; CH 28.1; CHCM 30.4; Eosinophils % (A) 0 %; HDW 3.27; HGB 9.8 gm/dL (11.4-16.0); Hypochromasia Marked; Luc # (Auto) 0.05; Luc % (Auto) 2; Lymphocytes # (A) 0.4 k/uL (1.0-4.8); Lymphocytes % (A) 11 %; MCH 28.2 pg (25.0-35.0); MCHC 30.5 g/dL (31.0-37.0); MCV 92.7 fL (80.0-100.0); Mean Platelet Volume 7.5; Monocytes # (A) 0.1 k/uL (0-1.0); Monocytes % (A) 2 %; Neutrophils # (A) 2.8 k/uL (1.3-7.7); Neutrophils % (A) 85 %; RBC 3.45 m/uL (3.80-5.40); RDW 14.8 % (11.5-15.5); WBC 3.3 k/uL (3.8-10.6); WBC (Perox) 3.72
[2016-12-05 07:08] LABS: Blood Urea Nitrogen 36 mg/dL (7-17); Calcium 9.2 mg/dL (8.4-10.2); Chloride 84 mmol/L (98-107); Glucose 136 mg/dL (74-99); Non-African American GFR(MDRD) 51 (>60 ml/min/1.73 sqM); Phosphorous 5.3 mg/dL (2.5-4.5); Potassium 4.5 mmol/L (3.5-5.1); Sodium 140 mmol/L (137-145)
[2016-12-05 07:15] LABS: Anion Gap 15 mmol/L
[2016-12-05 07:16] LABS: Carbon Dioxide 41 mmol/L (22-30)
[2016-12-05] MEDS: METOPROLOL TARTRATE 50 MG TAB PO SCH ×3 (08:00→22:35)
[2016-12-05] MEDS: FAMOTIDINE 20 MG TAB PO SCH ×2 (08:00→22:40)
[2016-12-05] MEDS: ASPIRIN 325 MG TAB PO SCH (08:00)
[2016-12-05] MEDS: SULFAMETHOX-TMP 800-160MG 1 EACH TAB PO SCH ×2 (08:00→22:35)
[2016-12-05] MEDS: APIXABAN 2.5 MG TABLET PO SCH ×2 (08:00→22:35)
[2016-12-05] MEDS: FUROSEMIDE 10 MG/ML 4 ML VIAL IV SCH ×2 (08:00→22:35)
[2016-12-05] MEDS: NITROGLYCERIN OINT 1 INCH/GM PACKET TOPICAL SCH ×4 (08:00→22:36)
[2016-12-05] MEDS: amLODIPine 5 MG TAB PO SCH (08:00)
[2016-12-05] MEDS: LISINOPRIL 10 MG TAB PO SCH ×3 (08:00→22:36)
[2016-12-05] MEDS: LEVALBUTEROL NEB 1.25 MG/3 ML AMP INHALATION SCH ×4 (08:19→20:36)
[2016-12-05] MEDS: FORMOTEROL FUMARATE 20 MCG/2 ML NEBU INHALATION SCH ×2 (08:19→20:36)
[2016-12-05] MEDS: BUDESONIDE 1 MG/2 ML NEBU INHALATION SCH ×2 (08:20→20:36)
[2016-12-05] MEDS: CHOLECALCIFEROL 1,000 UNIT TAB PO SCH (11:17)
[2016-12-05] MEDS: MULTIVITAMINS, THERA 1 EACH TAB PO SCH (11:17)
[2016-12-05 11:43] LABS: Glucose,Whole Blood 142 mg/dL (75-99)
--- NOTE | 2016-12-05 12:16 | P.PN ---
Subjective 76-year-old female admitted with a diagnosis of shortness of breath. Shortness of breath and multifactorial in part related to underlying COPD exacerbation and CHF. Also suffers from atrial fibrillation and has a prior diagnosis of lung cancer with resection. The patient is probably doing a bit better today. Still low short of breath. Shortness of breath is worse on exertion. Her primary doctor Dr. Thomas. She asked a lot of questions and demands a lot of answers. Her medications were reviewed yesterday and adjusted accordingly. Objective - Vital Signs Vital signs: Vital Signs Temp 97.6 F 12/05/16 11:31 Pulse 85 12/05/16 11:31 Resp 20 12/05/16 11:31 BP 172/80 12/05/16 11:31 Pulse Ox 96 12/05/16 11:31 Intake & Output 12/04/16 12/05/16 12/05/16 18:59 06:59 18:59 Intake Total 360 100 120 Output Total 900 900 Balance -540 -800 120 Weight 43.7 kg 42.9 kg Intake: IV 240 100 Sodium Chloride 0.9% 1, 240 100 000 ml @ 20 mls/hr IV . Q24H [facility] Rx#:[id number] Oral 120 120 Output: Urine 900 900 Other: Voiding Method Bedpan Toilet Toilet # Bowel Movements 0 - Exam No acute distress, oriented 3. Wearing nasal O2. HEENT examination is grossly unremarkable. Mucous membranes are moist. Neck supple. Full range of motion. No adenopathy. Cardiovascular examination reveals a regular rhythm rate. Heart rate about mid 80s. No murmur. S1 and S2 normal. Lungs reveal a few scattered coarse crackles. Breath sounds are diminished. No wheezes. Breath sounds are equal bilaterally but significantly diminished. There is prolongation on forced maneuver. Abdomen soft bowel sounds are heard. Extremities are intact. - Labs CBC & Chem 7: 12/05/16 06:12 12/05/16 06:12 Labs: Abnormal Lab Results - Last 24 Hours (Table) 12/04/16 12/05/16 12/05/16 Range/Units 20:48 05:49 06:12 WBC (3.8-10.6) k/uL RBC (3.80-5.40) m/uL Hgb (11.4-16.0) gm/dL Hct (34.0-46.0) % MCHC (31.0-37.0) g/dL Lymphocytes # (1.0-4.8) k/uL Chloride 84 L (98-107) mmol/L Carbon Dioxide 41 H* (22-30) mmol/L BUN 36 H (7-17) mg/dL Glucose 136 H (74-99) mg/dL POC Glucose (mg/dL) 121 H 140 H (75-99) mg/dL Phosphorus 5.3 H (2.5-4.5) mg/dL 12/05/16 12/05/16 Range/Units 06:12 11:31 WBC 3.3 L (3.8-10.6) k/uL RBC 3.45 L (3.80-5.40) m/uL Hgb 9.8 L (11.4-16.0) gm/dL Hct 32.0 L (34.0-46.0) % MCHC 30.5 L (31.0-37.0) g/dL Lymphocytes # 0.4 L (1.0-4.8) k/uL Chloride (98-107) mmol/L Carbon Dioxide (22-30) mmol/L BUN (7-17) mg/dL Glucose (74-99) mg/dL POC Glucose (mg/dL) 142 H (75-99) mg/dL Phosphorus (2.5-4.5) mg/dL Assessment and Plan (1) Lung cancer Status: Acute (2) Atypical chest pain Status: Acute (3) COPD exacerbation Status: Acute (4) Congestive heart failure Status: Acute (5) Afib Status: Acute Plan: Plan dated 12/04/2016 The patient should be continued on steroids breathing treatments antibiotics and diuretics. We'll hope for the best. The patient's overall prognosis is poor. The patient has a history of lung cancer COPD and heart failure. In addition she has a history of atrial fibrillation with RVR. Again we'll continue to follow closely. Prognosis is not very good. Plan dated 12/05/2016 The patient will continue on steroids antibiotics breathing treatments and oxygen therapy. I did speak to her primary about her. Her overall prognosis is guarded given her age and her multiple diagnoses. Adjustments will be made where appropriate. Time with Patient: Greater than 30
[2016-12-05] MEDS ORDERED: GLYCERIN ADULT SUPPOSITORY 1 EACH RECTAL STA (12:22)
--- NOTE | 2016-12-05 13:37 | P.PN ---
Subjective Patient is a 76-year-old male, patient of mine, with medical history significant for lung cancer with resection 2, COPD, chronic hypoxic respiratory failure on home O2, GI stromal cancer, atrial fibrillation, and hypertension, admitted through the emergency department via EMS with complaints of increased shortness of breath and chest pressure ongoing for approximately 3 days. Patient recently finished a course of antibiotics for urinary tract infection. No history of fevers, chills, sweats, nausea, vomiting , or abdominal pain. No urinary urgency, dysuria, hematuria. No history of constipation or diarrhea. EKG on admission with evidence of ruben sinus rhythm with incomplete right bundle branch block with no definite acute ischemia. Chest x-ray with evidence of lung carcinoma, cardiomegaly, and COPD. Echocardiogram with evidence of preserved left ventricular systolic function with an EF between 55-60%; moderate aortic valve sclerosis; moderate to severe tricuspid regurgitation; and moderate to severe pulmonary hypertension. Patient 's blood pressure was elevated at 190/94 in the emergency department. Troponins less than 0.0122, NT proBNP elevated at 3790. Patient was admitted into selective care unit will consult requested for pulmonary service and cardiology service. Today she is doing a bit better. Shortness of breath. Minimal, if any chest pain. I spent 30+ minutes with her discussing her care and issues. She is very anxious. She complains of a long-standing history of needing something help with bowel movements. She has not had one since arriving. Objective - Vital Signs Vital signs: Vital Signs Temp 97.6 F 12/05/16 11:31 Pulse 80 12/05/16 12:35 Resp 20 12/05/16 11:31 BP 172/80 12/05/16 11:31 Pulse Ox 96 12/05/16 11:31 - Exam GENERAL: Pt awake and alert, frail looking, thin, in no acute distress. NECK:Normal range of motion, supple without lymphadenopathy or JVD. LUNGS: Breath sounds diminished to auscultation bilaterally. No wheezes, rales , or rhonchi could be auscultated due to the poor air exchange, but it is improved from 1 day ago. HEART: Heart S1, S2, no S3 or S4. Regular rate and rhythm. Systolic murmur. ABDOMEN: Soft, nontender, nondistended, normoactive bowel sounds. No guarding, no rebound. No masses or organomegaly appreciated. EXTREMITIES: Palpable peripheral pulses. Trace edema to bilateral lower extremities. No calf tenderness. NEUROLOGICAL: Pt oriented x 3. Cranial nerves II through XII grossly intact. Strength and sensation grossly intact. PSYCH: Anxious. SKIN: Warm, dry, intact. No rashes or lesions. - Labs CBC & Chem 7: 12/05/16 06:12 12/05/16 06:12 Assessment and Plan Plan: 1. Shortness of breath and atypical chest pain, multifactorial, secondary to acute COPD exacerbation and acute diastolic congestive heart failure.: Cardiology and pulmonology service has been consulted, recommendations noted. Patient is currently on IV Solu-Medrol, Pulmicort, formoterol, Xopenex, Lasix, Nitropaste Will decrease her Solu-Medrol to 40 mg every 8 hours as she is complaining of side effects from this. 2. Paroxysmal atrial fibrillation: Continue Elequis, aspirin, lisinopril, metoprolol, amlodipine 3. Hypertension: Continue the medications as above 4. Anemia of chronic disease: We'll monitor hemoglobin 5. Chronic hypoxic respiratory failure. Patient on 2 L oxygen around-the- clock at home. 6. Anxiety and depression: We'll monitor for worsening symptoms, continue Klonopin, but it 0.5 mg every 12 hourly 7. Severe pulmonary hypertension: Cardiology and pulmonology following. 8. 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 History of lung cancer, non-small cell carcinoma status post right middle lobe resection and, right upper lobe lesion: Stable 10. History of remote nicotine dependence. 11. GI prophylaxis: She'll continue on famotidine 12. DVT prophylaxis: She remains on Elequis 13. Medical debility: Physical therapy to evaluate. I spent greater than 30 minutes with her discussing her care. I will reevaluate next 24 hours. I will await sourcing consultant recommendations. Time with Patient: Greater than 30
--- NOTE | 2016-12-05 14:20 | P.PN ---
Subjective Principal diagnosis: CHF and pneumonia This 76-year-old female with history of lung CA status post resection , severe COPD, hypertension, chronic persistent atrial fibrillation, who presented to the hospital with symptoms of progressively worsening shortness of breath. She is currently being treated for mild congestive cardiac failure along with pneumonia. Echocardiogram with Doppler study was performed at revealed an ejection fraction of 55-60%, moderate aortic valve sclerosis, moderate to severe pulmonary hypertension, moderate to severe tricuspid regurg and moderate pulmononic GERD. Patient is diuresing on IV Lasix, weight today is down 1 kg. Creatinine today 1.04. We will continue IV Lasix for 24 hours check lytes BUN and creatinine in the morning. Objective - Vital Signs Vital signs: Vital Signs Temp 97.6 F 12/05/16 11:31 Pulse 80 12/05/16 12:35 Resp 20 12/05/16 11:31 BP 172/80 12/05/16 11:31 Pulse Ox 96 12/05/16 11:31 Intake & Output 12/04/16 12/05/16 12/05/16 18:59 06:59 18:59 Weight 42.9 kg - Exam PHYSICAL EXAMINATION: HEENT: Head is atraumatic, normocephalic. Pupils equal, round. Neck is supple. There is no elevated jugular venous pressure. HEART EXAMINATION: S1 and S2 systolic murmur is heard. CHEST EXAMINATION: Lungs reveal scattered coarse crackles throughout. ABDOMEN: Soft, nontender. Bowel sounds are heard. No organomegaly noted. EXTREMITIES: 2+ peripheral pulses with no evidence of peripheral edema and no calf tenderness noted. NEUROLOGIC patient is awake, alert and oriented -3. . - Labs CBC & Chem 7: 12/05/16 06:12 12/05/16 06:12 Assessment and Plan (1) Paroxysmal a-fib Status: Acute (2) Diastolic CHF, acute on chronic Status: Acute (3) Pneumonia Status: Acute (4) COPD exacerbation Status: Acute (5) Lung cancer Status: Acute Plan: From cardiology's perspective, we will continue current dose of IV Lasix for 24 hours, check lytes BUN and creatinine in the morning. DNP note has been reviewed, I agree with a documented findings and plan of care. Patient was seen and examined.
[2016-12-05] MEDS: clonazePAM 0.5 MG TAB PO PRN (14:25)
[2016-12-05] MEDS: SODIUM CHLORIDE 0.9% 1,000 ML IV SCH (16:29)
[2016-12-05] MEDS: methylPREDNISolone SOD SUCCI 40 MG/ML 1 ML VIAL IV SCH (16:41)
[2016-12-05 16:56] LABS: Glucose,Whole Blood 168 mg/dL (75-99)
[2016-12-05 21:08] LABS: Glucose,Whole Blood 140 mg/dL (75-99)
[2016-12-05] MEDS: MIRTAZAPINE 15 MG TAB PO SCH (22:36)
[2016-12-06] MEDS: methylPREDNISolone SOD SUCCI 40 MG/ML 1 ML VIAL IV SCH ×3 (00:23→16:45)
[2016-12-06] MEDS: clonazePAM 0.5 MG TAB PO PRN ×2 (00:23→09:00)
[2016-12-06 05:56] LABS: Glucose,Whole Blood 100 mg/dL (75-99)
[2016-12-06] MEDS: INSULIN LISPRO (humaLOG) 300 UNIT/3 ML VIAL SQ SCH ×4 (06:38→21:54)
--- NOTE | 2016-12-06 07:19 | XR ---
EXAMINATION TYPE: XR chest 2V DATE OF EXAM: 12/06/2016 7:00 AM HISTORY: CHF. REFERENCE: Previous study dated 12/03/2016. FINDINGS: Lung volumes are prominent. Heart size is upper limits of normal. There is mild blunting of both CP angles. There is a 3.4 cm masslike density in the right upper lobe. This is unchanged from previous. There ar e surgical sutures in the right upper lobe. There is vascular clips adjacent to the aorta. IMPRESSION: 1. COPD. 2. BORDERLINE CARDIOMEGALY. 3. POSTSURGICAL CHANGE. 4. MASSLIKE DENSITY, RIGHT UPPER LOBE, UNCHANGED FROM PREVIOUS.
[2016-12-06 07:20] LABS: Basophils % (A) 0 %; CH 27.7; CHCM 29.8; Eosinophils % (A) 1 %; HCT 31.7 % (34.0-46.0); HDW 3.27; HGB 9.5 gm/dL (11.4-16.0); Hypochromasia Marked; Luc # (Auto) 0.06; Luc % (Auto) 1; Lymphocytes # (A) 0.4 k/uL (1.0-4.8); Lymphocytes % (A) 5 %; MCH 27.8 pg (25.0-35.0); MCHC 29.9 g/dL (31.0-37.0); Mean Platelet Volume 6.7; Monocytes # (A) 0.2 k/uL (0-1.0); Monocytes % (A) 3 %; Neutrophils # (A) 8.8 k/uL (1.3-7.7); Neutrophils % (A) 92 %; RBC 3.41 m/uL (3.80-5.40); RDW 14.7 % (11.5-15.5); WBC 9.6 k/uL (3.8-10.6); WBC (Perox) 10.19
[2016-12-06 07:39] LABS: Calcium 9.2 mg/dL (8.4-10.2); Phosphorous 4.8 mg/dL (2.5-4.5)
[2016-12-06] MEDS: FORMOTEROL FUMARATE 20 MCG/2 ML NEBU INHALATION SCH ×2 (08:51→20:31)
[2016-12-06] MEDS: BUDESONIDE 1 MG/2 ML NEBU INHALATION SCH ×2 (08:51→20:33)
[2016-12-06] MEDS: LEVALBUTEROL NEB 1.25 MG/3 ML AMP INHALATION SCH ×4 (08:51→20:33)
[2016-12-06] MEDS: traMADol 50 MG TAB PO PRN ×2 (08:59→16:42)
[2016-12-06] MEDS: ACETAMINOPHEN TAB 325 MG TAB PO PRN (09:00)
[2016-12-06] MEDS: ASPIRIN 325 MG TAB PO SCH (09:02)
[2016-12-06] MEDS: APIXABAN 2.5 MG TABLET PO SCH ×2 (09:02→22:05)
[2016-12-06] MEDS: amLODIPine 5 MG TAB PO SCH ×2 (09:02→22:03)
[2016-12-06] MEDS: LISINOPRIL 10 MG TAB PO SCH ×3 (09:03→22:04)
[2016-12-06] MEDS: FAMOTIDINE 20 MG TAB PO SCH ×2 (09:03→22:04)
[2016-12-06] MEDS: METOPROLOL TARTRATE 50 MG TAB PO SCH ×3 (09:03→22:04)
[2016-12-06] MEDS: NITROGLYCERIN OINT 1 INCH/GM PACKET TOPICAL SCH ×2 (09:04→12:07)
[2016-12-06] MEDS: SULFAMETHOX-TMP 800-160MG 1 EACH TAB PO SCH ×2 (09:04→22:04)
[2016-12-06 11:35] LABS: Glucose,Whole Blood 93 mg/dL (75-99)
--- NOTE | 2016-12-06 11:39 | P.PN ---
Subjective Patient is a 76-year-old male, patient of mine, with medical history significant for lung cancer with resection 2, COPD, chronic hypoxic respiratory failure on home O2, GI stromal cancer, atrial fibrillation, and hypertension, admitted through the emergency department via EMS with complaints of increased shortness of breath and chest pressure ongoing for approximately 3 days. Patient recently finished a course of antibiotics for urinary tract infection. No history of fevers, chills, sweats, nausea, vomiting , or abdominal pain. No urinary urgency, dysuria, hematuria. No history of constipation or diarrhea. EKG on admission with evidence of ruben sinus rhythm with incomplete right bundle branch block with no definite acute ischemia. Chest x-ray with evidence of lung carcinoma, cardiomegaly, and COPD. Echocardiogram with evidence of preserved left ventricular systolic function with an EF between 55-60%; moderate aortic valve sclerosis; moderate to severe tricuspid regurgitation; and moderate to severe pulmonary hypertension. Patient 's blood pressure was elevated at 190/94 in the emergency department. Troponins less than 0.0122, NT proBNP elevated at 3790. Patient was admitted into selective care unit will consult requested for pulmonary service and cardiology service. The patient seems more dyspneic today. She indicates some of the medications don't seem like they're working with a shed. Her medications were reviewed with her today. Objective - Vital Signs Vital signs: Vital Signs Temp 97.1 F L 12/06/16 04:00 Pulse 77 12/06/16 04:00 Resp 20 12/06/16 04:00 BP 168/73 12/06/16 04:00 Pulse Ox 93 L 12/06/16 04:00 Intake & Output 12/05/16 12/06/16 12/06/16 18:59 06:59 18:59 Intake Total 160 260 120 Output Total 300 Balance 160 -40 120 Weight 42.9 kg 42.6 kg Intake: IV 160 20 Sodium Chloride 0.9% 1, 160 20 000 ml @ 20 mls/hr IV . Q24H [facility] Rx#:[id number] Oral 240 120 Output: Urine 300 Other: Voiding Method Toilet Toilet # Voids 1 # Bowel Movements 1 - Exam GENERAL: Pt is sleepy, frail looking, thin, in mild respiratory distress. She appears tachypnic at rest. NECK:Normal range of motion, supple without lymphadenopathy or JVD. LUNGS: Breath sounds diminished to auscultation bilaterally. No wheezes, rales , or rhonchi could be auscultated due to the poor air exchange, but it is improved from 1 day ago. HEART: Heart S1, S2, no S3 or S4. Regular rate and rhythm. Systolic murmur. ABDOMEN: Soft, nontender, nondistended, normoactive bowel sounds. No guarding, no rebound. No masses or organomegaly appreciated. EXTREMITIES: Palpable peripheral pulses. Trace edema to bilateral lower extremities. No calf tenderness. NEUROLOGICAL: Pt oriented x 3. Cranial nerves II through XII grossly intact. Strength and sensation grossly intact. PSYCH: Anxious. SKIN: Warm, dry, intact. No rashes or lesions. - Labs CBC & Chem 7: 12/06/16 06:59 12/06/16 06:59 Labs: Abnormal Lab Results - Last 24 Hours (Table) 12/05/16 12/05/16 12/06/16 Range/Units 16:54 21:06 05:55 RBC (3.80-5.40) m/uL Hgb (11.4-16.0) gm/dL Hct (34.0-46.0) % MCHC (31.0-37.0) g/dL Neutrophils # (1.3-7.7) k/uL Lymphocytes # (1.0-4.8) k/uL Chloride (98-107) mmol/L Carbon Dioxide (22-30) mmol/L BUN (7-17) mg/dL Creatinine (0.52-1.04) mg/dL Glucose (74-99) mg/dL POC Glucose (mg/dL) 168 H 140 H 100 H (75-99) mg/dL Phosphorus (2.5-4.5) mg/dL 12/06/16 12/06/16 Range/Units 06:59 06:59 RBC 3.41 L (3.80-5.40) m/uL Hgb 9.5 L (11.4-16.0) gm/dL Hct 31.7 L (34.0-46.0) % MCHC 29.9 L (31.0-37.0) g/dL Neutrophils # 8.8 H (1.3-7.7) k/uL Lymphocytes # 0.4 L (1.0-4.8) k/uL Chloride 82 L (98-107) mmol/L Carbon Dioxide 42 H* (22-30) mmol/L BUN 53 H (7-17) mg/dL Creatinine 1.13 H (0.52-1.04) mg/dL Glucose 128 H (74-99) mg/dL POC Glucose (mg/dL) (75-99) mg/dL Phosphorus 4.8 H (2.5-4.5) mg/dL Assessment and Plan Plan: 1. Shortness of breath and atypical chest pain, multifactorial, secondary to acute COPD exacerbation and acute diastolic congestive heart failure.: Cardiology and pulmonology service are following, recommendations noted. Patient is currently on IV Solu-Medrol, Pulmicort, formoterol, Xopenex, Lasix, Nitropaste. I discussed her increased tachypnea with Dr. Olivas today. 2. Paroxysmal atrial fibrillation: Continue Elequis, aspirin, lisinopril, metoprolol, amlodipine 3. Hypertension: Continue the medications as above, her blood pressures have been elevated, 4. Anemia of chronic disease: We'll monitor hemoglobin 9.5 today 5. Chronic hypoxic respiratory failure. Patient on 2 L oxygen around-the- clock 6. Anxiety and depression: We'll monitor for worsening symptoms, continue Klonopin, but it 0.5 mg every 12 hourly 7. Severe pulmonary hypertension: Cardiology and pulmonology following. 8. 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 History of lung cancer, non-small cell carcinoma status post right middle lobe resection and, right upper lobe lesion: Stable 10. History of remote nicotine dependence. 11. GI prophylaxis: She'll continue on famotidine 12. DVT prophylaxis: She remains on Elequis 13. Medical debility: Physical therapy to evaluate. 14. Renal insufficiency: Creatinine is now 1.13, GFR is down to 47, most likely from diuretics, will monitor I will reevaluate next 24 hours. I will await [employer] payroll consultant recommendations.
[2016-12-06] MEDS: FUROSEMIDE 10 MG/ML 4 ML VIAL IV SCH (12:06)
[2016-12-06] MEDS: CHOLECALCIFEROL 1,000 UNIT TAB PO SCH (12:06)
[2016-12-06] MEDS: MULTIVITAMINS, THERA 1 EACH TAB PO SCH (12:06)
--- NOTE | 2016-12-06 12:06 | P.PN ---
Subjective 76-year-old female admitted with a diagnosis of shortness of breath. Shortness of breath and multifactorial in part related to underlying COPD exacerbation and CHF. Also suffers from atrial fibrillation and has a prior diagnosis of lung cancer with resection. The patient is probably doing a bit better today. Still low short of breath. Shortness of breath is worse on exertion. Her primary doctor Dr. Thomas. She asked a lot of questions and demands a lot of answers. Her medications were reviewed yesterday and adjusted accordingly. Progress note dated 12/06/2016 76-year-old female with history of multiple medical problems. Her primary issue now include shortness of breath which is multiply factorial in part related to underlying COPD exacerbation but also CHF and A. fib with RVR. Anyway the patient is doing reasonably well today. I think she is really expecting to be medically improved but I think her progress will be very slow. Anyway less short of breath in my opinion today. Clinically she sounds better today. Chest x-ray is unchanged. She's been seen by her primary doctor as well as cardiology myself. Objective - Vital Signs Vital signs: Vital Signs Temp 97.1 F L 12/06/16 04:00 Pulse 77 12/06/16 04:00 Resp 20 12/06/16 04:00 BP 168/73 12/06/16 04:00 Pulse Ox 93 L 12/06/16 04:00 Intake & Output 12/05/16 12/06/16 12/06/16 18:59 06:59 18:59 Intake Total 160 260 120 Output Total 300 Balance 160 -40 120 Weight 42.9 kg 42.6 kg Intake: IV 160 20 Sodium Chloride 0.9% 1, 160 20 000 ml @ 20 mls/hr IV . Q24H [facility] Rx#:[id number] Oral 240 120 Output: Urine 300 Other: Voiding Method Toilet Toilet # Voids 1 # Bowel Movements 1 - Exam No acute distress, oriented 3. Wearing nasal O2. HEENT examination is grossly unremarkable. Mucous membranes are moist. Neck supple. Full range of motion. No adenopathy. Cardiovascular examination reveals a regular rhythm rate. Heart rate about mid 80s. No murmur. S1 and S2 normal. Lungs reveal a few scattered coarse crackles. Breath sounds are diminished. No wheezes. Breath sounds are equal bilaterally but significantly diminished. There is prolongation on forced maneuver. Abdomen soft bowel sounds are heard. Extremities are intact. - Labs CBC & Chem 7: 12/06/16 06:59 12/06/16 06:59 Labs: Abnormal Lab Results - Last 24 Hours (Table) 12/05/16 12/05/16 12/06/16 Range/Units 16:54 21:06 05:55 RBC (3.80-5.40) m/uL Hgb (11.4-16.0) gm/dL Hct (34.0-46.0) % MCHC (31.0-37.0) g/dL Neutrophils # (1.3-7.7) k/uL Lymphocytes # (1.0-4.8) k/uL Chloride (98-107) mmol/L Carbon Dioxide (22-30) mmol/L BUN (7-17) mg/dL Creatinine (0.52-1.04) mg/dL Glucose (74-99) mg/dL POC Glucose (mg/dL) 168 H 140 H 100 H (75-99) mg/dL Phosphorus (2.5-4.5) mg/dL 12/06/16 12/06/16 Range/Units 06:59 06:59 RBC 3.41 L (3.80-5.40) m/uL Hgb 9.5 L (11.4-16.0) gm/dL Hct 31.7 L (34.0-46.0) % MCHC 29.9 L (31.0-37.0) g/dL Neutrophils # 8.8 H (1.3-7.7) k/uL Lymphocytes # 0.4 L (1.0-4.8) k/uL Chloride 82 L (98-107) mmol/L Carbon Dioxide 42 H* (22-30) mmol/L BUN 53 H (7-17) mg/dL Creatinine 1.13 H (0.52-1.04) mg/dL Glucose 128 H (74-99) mg/dL POC Glucose (mg/dL) (75-99) mg/dL Phosphorus 4.8 H (2.5-4.5) mg/dL Assessment and Plan (1) Lung cancer Status: Acute (2) Atypical chest pain Status: Acute (3) COPD exacerbation Status: Acute (4) Congestive heart failure Status: Acute (5) Afib Status: Acute Plan: Plan dated 12/04/2016 The patient should be continued on steroids breathing treatments antibiotics and diuretics. We'll hope for the best. The patient's overall prognosis is poor. The patient has a history of lung cancer COPD and heart failure. In addition she has a history of atrial fibrillation with RVR. Again we'll continue to follow closely. Prognosis is not very good. Plan dated 12/05/2016 The patient will continue on steroids antibiotics breathing treatments and oxygen therapy. I did speak to her primary about her. Her overall prognosis is guarded given her age and her multiple diagnoses. Adjustments will be made where appropriate. Plan dated 12/06/2016 The patient continues on current medications. Apparently she complained to her primary doctor that she did not like the side effects of the steroids and they were reduced. That will certainly probably slow her progress. She is on other medications that are good though including short acting beta agonist and a long- acting beta agonist as well as inhaled corticosteroids. We'll continue to follow. Prognosis is guarded. Her expectations should be lowered. I don't suspect she'll see a dramatic improvement but just slow steady improvement hopefully. Time with Patient: Less than 30
--- NOTE | 2016-12-06 15:24 | PN ---
76-year-old female who presented with symptoms of progressive and dyspnea. She has been diagnosed with exacerbation of chronic obstructive pulmonary disease. She has a history of lung cancer. She is dyspneic this morning, but she has no chest pain. She has no dizziness or palpitation. She has been followed by the pulmonary service and continues to be at this time on Eliquis 2.5 mg twice a day, aspirin, Lasix 40 mg IV q.12 hours, Lisinopril 10 mg 3 times a day, amlodipine 5 mg daily in addition to her updraft and methylprednisolone. PHYSICAL EXAMINATION: Blood pressure remains elevated in the 160s to 180s with a heart in the 80s. LUNGS: With severe decreased air exchange and scattered wheezes. HEART: Irregularly irregular. S1, S2, no S3, with systolic murmur. ABDOMEN: Soft, nontender. EXTREMITIES: No edema. Lab data revealed BUN and creatinine 53 and 1.13 potassium of 4.0, bicarb of 42. Hemoglobin of 9.5. She had an echocardiogram during at this admission that showed a normal left ventricular systolic function and moderate to severe pulmonary hypertension. IMPRESSION: 1. Symptoms of progressive dyspnea. 2. Atrial fibrillation. RECOMMENDATIONS: I will stop her aspirin, cut down the dose of her diuretics. Switch her to oral diuresis. I believe that her breathing issue at this time is mostly related to her lung status and I do not believe that we are dealing with significant fluid overload.
[2016-12-06] MEDS: clonazePAM 0.5 MG TAB PO SCH ×2 (16:42→16:56)
[2016-12-06] MEDS: SODIUM CHLORIDE 0.9% 1,000 ML IV SCH (16:43)
[2016-12-06 16:48] LABS: Glucose,Whole Blood 125 mg/dL (75-99)
[2016-12-06 20:47] LABS: Glucose,Whole Blood 130 mg/dL (75-99)
[2016-12-06] MEDS: FUROSEMIDE 20 MG TAB PO SCH (22:03)
[2016-12-07] MEDS: MIRTAZAPINE 15 MG TAB PO SCH (00:16)
[2016-12-07] MEDS: clonazePAM 0.5 MG TAB PO SCH ×4 (00:16→17:33)
[2016-12-07] MEDS: methylPREDNISolone SOD SUCCI 40 MG/ML 1 ML VIAL IV SCH ×2 (00:17→09:55)
[2016-12-07 06:18] LABS: Glucose,Whole Blood 102 mg/dL (75-99)
[2016-12-07] MEDS: INSULIN LISPRO (humaLOG) 300 UNIT/3 ML VIAL SQ SCH ×4 (06:50→21:29)
[2016-12-07 07:06] LABS: Calcium 9.2 mg/dL (8.4-10.2); Potassium 4.5 mmol/L (3.5-5.1)
[2016-12-07] MEDS: FORMOTEROL FUMARATE 20 MCG/2 ML NEBU INHALATION SCH (08:47)
[2016-12-07] MEDS: BUDESONIDE 1 MG/2 ML NEBU INHALATION SCH ×2 (08:48→12:38)
[2016-12-07] MEDS: LEVALBUTEROL NEB 1.25 MG/3 ML AMP INHALATION SCH (08:48)
--- NOTE | 2016-12-07 09:01 | P.PN ---
Subjective Principal diagnosis: CHF and pneumonia This 76-year-old female with history of lung CA status post resection , severe COPD, hypertension, chronic persistent atrial fibrillation, who presented to the hospital with symptoms of progressively worsening shortness of breath. She is currently being treated for mild congestive cardiac failure along with pneumonia and exacerbation of COPD. Echocardiogram with Doppler study was performed at revealed an ejection fraction of 55-60%, moderate aortic valve sclerosis, moderate to severe pulmonary hypertension, moderate to severe tricuspid regurg and moderate pulmononic GERD. Patient is currently on oral diuretics. Still feeling short of breath, but much better overall. Objective - Vital Signs Vital signs: Vital Signs Temp 98 F 12/07/16 04:00 Pulse 72 12/07/16 04:00 Resp 18 12/07/16 04:00 BP 157/71 12/07/16 04:00 Pulse Ox 94 L 12/07/16 04:00 Intake & Output 12/06/16 12/07/16 12/07/16 18:59 06:59 18:59 Intake Total 380 640 240 Output Total 450 Balance 380 190 240 Weight 42.5 kg Intake: IV 200 40 Sodium Chloride 0.9% 1, 200 40 000 ml @ 20 mls/hr IV . Q24H [facility] Rx#:[id number] Oral 180 600 240 Output: Urine 450 Other: Voiding Method Toilet Toilet # Voids 2 - Exam PHYSICAL EXAMINATION: HEENT: Head is atraumatic, normocephalic. Pupils equal, round. Neck is supple. There is no elevated jugular venous pressure. HEART EXAMINATION: S1 and S2 systolic murmur is heard. CHEST EXAMINATION: Lungs reveal scattered wheezes with decreased air exchange. ABDOMEN: Soft, nontender. Bowel sounds are heard. No organomegaly noted. EXTREMITIES: 2+ peripheral pulses with no evidence of peripheral edema and no calf tenderness noted. NEUROLOGIC patient is awake, alert and oriented -3. . - Labs CBC & Chem 7: 12/06/16 06:59 12/07/16 05:41 Labs: Abnormal Lab Results - Last 24 Hours (Table) 12/06/16 12/06/16 12/07/16 Range/Units 16:44 20:46 05:41 Chloride 84 L (98-107) mmol/L Carbon Dioxide 39 H (22-30) mmol/L BUN 68 H (7-17) mg/dL Creatinine 1.26 H (0.52-1.04) mg/dL Glucose 114 H (74-99) mg/dL POC Glucose (mg/dL) 125 H 130 H (75-99) mg/dL 12/07/16 Range/Units 06:17 Chloride (98-107) mmol/L Carbon Dioxide (22-30) mmol/L BUN (7-17) mg/dL Creatinine (0.52-1.04) mg/dL Glucose (74-99) mg/dL POC Glucose (mg/dL) 102 H (75-99) mg/dL Assessment and Plan (1) Paroxysmal a-fib Status: Acute (2) Diastolic CHF, acute on chronic Status: Acute (3) Pneumonia Status: Acute (4) COPD exacerbation Status: Acute (5) Lung cancer Status: Acute Plan: From cardiology's perspective, we will continue current medications. DNP note has been reviewed, I agree with a documented findings and plan of care. Patient was seen and examined.
[2016-12-07] MEDS: amLODIPine 5 MG TAB PO SCH ×2 (09:56→20:17)
[2016-12-07] MEDS: APIXABAN 2.5 MG TABLET PO SCH ×2 (09:56→20:17)
[2016-12-07] MEDS: FAMOTIDINE 20 MG TAB PO SCH (09:57)
[2016-12-07] MEDS: FUROSEMIDE 20 MG TAB PO SCH ×2 (09:57→20:18)
[2016-12-07] MEDS: LISINOPRIL 10 MG TAB PO SCH ×3 (09:58→21:35)
[2016-12-07] MEDS: METOPROLOL TARTRATE 50 MG TAB PO SCH ×3 (09:58→21:35)
[2016-12-07] MEDS: MULTIVITAMINS, THERA 1 EACH TAB PO SCH (09:59)
[2016-12-07] MEDS: traMADol 50 MG TAB PO PRN ×3 (09:59→23:08)
[2016-12-07] MEDS: CHOLECALCIFEROL 1,000 UNIT TAB PO SCH (09:59)
[2016-12-07] MEDS: SULFAMETHOX-TMP 800-160MG 1 EACH TAB PO SCH (09:59)
--- NOTE | 2016-12-07 11:02 | P.PN ---
Subjective Principal diagnosis: CHF and pneumonia This 76-year-old female with history of lung CA status post resection , severe COPD, hypertension, paroxsysmal atrial fibrillation, who presented to the hospital with symptoms of progressively worsening shortness of breath. She is currently being treated for mild congestive cardiac failure along with pneumonia and exacerbation of COPD. Echocardiogram with Doppler study was performed at revealed an ejection fraction of 55-60%, moderate aortic valve sclerosis, moderate to severe pulmonary hypertension, moderate to severe tricuspid regurg and moderate pulmononic GERD. Patient is currently on oral diuretics. Still feeling short of breath, but much better overall. BUN 68, creat1.2. Objective - Vital Signs Vital signs: Vital Signs Temp 98 F 12/07/16 04:00 Pulse 86 12/07/16 09:00 Resp 18 12/07/16 04:00 BP 157/71 12/07/16 04:00 Pulse Ox 94 L 12/07/16 04:00 Intake & Output 12/06/16 12/07/16 12/07/16 18:59 06:59 18:59 Intake Total 380 640 240 Output Total 450 Balance 380 190 240 Weight 42.5 kg Intake: IV 200 40 Sodium Chloride 0.9% 1, 200 40 000 ml @ 20 mls/hr IV . Q24H [facility] Rx#:[id number] Oral 180 600 240 Output: Urine 450 Other: Voiding Method Toilet Toilet # Voids 2 - Exam PHYSICAL EXAMINATION: HEENT: Head is atraumatic, normocephalic. Pupils equal, round. Neck is supple. There is no elevated jugular venous pressure. HEART EXAMINATION: S1 and S2 systolic murmur is heard. CHEST EXAMINATION: Lungs reveal scattered wheezes with decreased air exchange throughout. ABDOMEN: Soft, nontender. Bowel sounds are heard. No organomegaly noted. EXTREMITIES: 2+ peripheral pulses with no evidence of peripheral edema and no calf tenderness noted. NEUROLOGIC patient is awake, alert and oriented -3. . - Labs CBC & Chem 7: 12/06/16 06:59 12/07/16 05:41 Labs: Abnormal Lab Results - Last 24 Hours (Table) 12/06/16 12/06/16 12/07/16 Range/Units 16:44 20:46 05:41 Chloride 84 L (98-107) mmol/L Carbon Dioxide 39 H (22-30) mmol/L BUN 68 H (7-17) mg/dL Creatinine 1.26 H (0.52-1.04) mg/dL Glucose 114 H (74-99) mg/dL POC Glucose (mg/dL) 125 H 130 H (75-99) mg/dL 12/07/16 Range/Units 06:17 Chloride (98-107) mmol/L Carbon Dioxide (22-30) mmol/L BUN (7-17) mg/dL Creatinine (0.52-1.04) mg/dL Glucose (74-99) mg/dL POC Glucose (mg/dL) 102 H (75-99) mg/dL Assessment and Plan (1) Paroxysmal a-fib Status: Resolved (2) Diastolic CHF, acute on chronic Status: Resolved (3) Pneumonia Status: Acute (4) COPD exacerbation Status: Acute (5) Lung cancer Status: Inactive Plan: From cardiology's perspective, we will hold diuretics because of rise in BUN. Continue Eliquis. We'll follow this patient with you now on an as-needed basis only, least on hesitate to call with any questions. DNP note has been reviewed, I agree with a documented findings and plan of care. Patient was seen and examined.
[2016-12-07 12:00] LABS: Glucose,Whole Blood 147 mg/dL (75-99)
--- NOTE | 2016-12-07 13:40 | P.PN ---
Subjective Patient is a 76-year-old male, patient of mine, with medical history significant for lung cancer with resection 2, COPD, chronic hypoxic respiratory failure on home O2, GI stromal cancer, atrial fibrillation, and hypertension, admitted through the emergency department via EMS with complaints of increased shortness of breath and chest pressure ongoing for approximately 3 days. Patient recently finished a course of antibiotics for urinary tract infection. No history of fevers, chills, sweats, nausea, vomiting , or abdominal pain. No urinary urgency, dysuria, hematuria. No history of constipation or diarrhea. EKG on admission with evidence of ruben sinus rhythm with incomplete right bundle branch block with no definite acute ischemia. Chest x-ray with evidence of lung carcinoma, cardiomegaly, and COPD. Echocardiogram with evidence of preserved left ventricular systolic function with an EF between 55-60%; moderate aortic valve sclerosis; moderate to severe tricuspid regurgitation; and moderate to severe pulmonary hypertension. Patient 's blood pressure was elevated at 190/94 in the emergency department. Troponins less than 0.0122, NT proBNP elevated at 3790. Patient was admitted into selective care unit will consult requested for pulmonary service and cardiology service. The patient is concerned one of her NEB solution meds is causing her more SOB. Objective - Vital Signs Vital signs: Vital Signs Temp 98 F 12/07/16 04:00 Pulse 64 12/07/16 12:47 Resp 18 12/07/16 04:00 BP 157/71 12/07/16 04:00 Pulse Ox 94 L 12/07/16 04:00 Intake & Output 12/06/16 12/07/16 12/07/16 18:59 06:59 18:59 Intake Total 380 640 240 Output Total 450 300 Balance 380 190 -60 Weight 42.5 kg Intake: IV 200 40 Sodium Chloride 0.9% 1, 200 40 000 ml @ 20 mls/hr IV . Q24H [facility] Rx#:[id number] Oral 180 600 240 Output: Urine 450 300 Other: Voiding Method Toilet Toilet # Voids 2 1 - Exam GENERAL: Pt is awake, frail looking, thin, in mild respiratory distress. She appears tachypnic at rest. NECK:Normal range of motion, supple without lymphadenopathy or JVD. LUNGS: Breath sounds diminished to auscultation bilaterally. No wheezes, rales , or rhonchi could be auscultated due to the poor air exchange, but it is improved from 1 day ago. HEART: Heart S1, S2, no S3 or S4. Regular rate and rhythm. Systolic murmur. ABDOMEN: Soft, nontender, nondistended, normoactive bowel sounds. No guarding, no rebound. No masses or organomegaly appreciated. EXTREMITIES: Palpable peripheral pulses. Trace edema to bilateral lower extremities. No calf tenderness. NEUROLOGICAL: Pt oriented x 3. Cranial nerves II through XII grossly intact. Strength and sensation grossly intact. PSYCH: Anxious. SKIN: Warm, dry, intact. No rashes or lesions. - Labs CBC & Chem 7: 12/06/16 06:59 12/07/16 05:41 Labs: Abnormal Lab Results - Last 24 Hours (Table) 12/06/16 12/06/16 12/07/16 Range/Units 16:44 20:46 05:41 Chloride 84 L (98-107) mmol/L Carbon Dioxide 39 H (22-30) mmol/L BUN 68 H (7-17) mg/dL Creatinine 1.26 H (0.52-1.04) mg/dL Glucose 114 H (74-99) mg/dL POC Glucose (mg/dL) 125 H 130 H (75-99) mg/dL 12/07/16 12/07/16 Range/Units 06:17 11:48 Chloride (98-107) mmol/L Carbon Dioxide (22-30) mmol/L BUN (7-17) mg/dL Creatinine (0.52-1.04) mg/dL Glucose (74-99) mg/dL POC Glucose (mg/dL) 102 H 147 H (75-99) mg/dL Assessment and Plan Plan: 1. Shortness of breath and atypical chest pain, multifactorial, secondary to acute COPD exacerbation and acute diastolic congestive heart failure.: Cardiology and pulmonology service are following, recommendations noted. Patient is currently on IV Solu-Medrol, Pulmicort, formoterol, Xopenex, Lasix, Nitropaste. I discussed her increased tachypnea with Dr. Olivas today. I will stop Formoterol at this time to see if that helps with her sx 2. Paroxysmal atrial fibrillation: Continue Elequis, aspirin, lisinopril, metoprolol, amlodipine 3. Hypertension: Continue the medications as above, her blood pressures have been elevated, 4. Anemia of chronic disease: We'll monitor hemoglobin 9.5 today 5. Chronic hypoxic respiratory failure. Patient on 2 L oxygen around-the- clock 6. Anxiety and depression: We'll monitor for worsening symptoms, continue Klonopin, 7. Severe pulmonary hypertension: Cardiology and pulmonology following. 8. 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 History of lung cancer, non-small cell carcinoma status post right middle lobe resection and, right upper lobe lesion: Stable 10. History of remote nicotine dependence. 11. GI prophylaxis: She'll continue on famotidine 12. DVT prophylaxis: She remains on Elequis 13. Medical debility: Physical therapy to evaluate. 14. Renal insufficiency: Creatinine is now 1.13, GFR is down to 47, most likely from diuretics, will monitor I will reevaluate next 24 hours. I will await senior business consultant recommendations.
--- NOTE | 2016-12-07 15:16 | CDI ---
In responding to this query, please exercise your independent professional judgment. The [facility] Coding Staff and Clinical Documentation Specialists appreciate your assistance in clarifying documentation, maintaining compliance with coding guidelines, accurately documenting patients condition and capturing severity of illness. The fact that a question is asked does not imply that any particular answer is desired or expected. Communication forms are a method of clarifying documentation and are not made part of the Legal Health Record. Thank you in advance for your clarification. Last Revision, July 2015 Therese Sanchez [address] [place] [address] Documentation Clarification Form Date: 12/07/2016 3:02:00 PM From: Maritza Marks RN, CCDS Admit Date: 12/05/2016 1:09:00 PM Patient Name: Danuta Villalobos Visit Number: [id number] Dr. Alex Thomas History/Risk Factors: A/C diastolic CHF, paroxysmal atrial fib Clinical Indicators: 12/07 Attending Progress Note: "Renal insufficiency: Creatinine is now 1.13, GFR is down to 47, most likely from diuretics," 07/24/16 Patients baseline BUN/CR/GFR: 23/0.75/>60 Patient presents with a BUN: 16/25/36/53/68 CR: .68/.86/1.04/1.13/1.26 GFR: >60/57/50 Treatment: Lasix 40 mg IVP Q 12 hrs then 20 mg PO BID IVF: 0.9% NS @ 20 cc/hr In order to capture the severity of condition, please clarify if the condition signifies: Acute renal failure Please specify (if known): Cortical, Medullary, or Tubular Necrosis? Acute kidney injury Acute on chronic renal failure Chronic renal failure, please stage Chronic kidney disease (CKD) and please stage Stage 1 GFR >90 Stage 2 GFR 60-89 Stage 3 GFR 30-59 Stage 4 GFR 15-29 Stage 5 GFR <15 ESRD Unable to determine Other, specify Please document in your progress notes and discharge summary in order to capture severity of illness and risk of mortality. Include clinical findings that support your diagnosis. FYI: Press F11 to launch patient chart. Place X here if this finding has no clinical significance, is not applicable or if you are not able to provide any additional documentation. ISABELD
[2016-12-07 16:33] LABS: Glucose,Whole Blood 114 mg/dL (75-99)
[2016-12-07] MEDS: predniSONE 20 MG TAB PO SCH (17:31)
[2016-12-07] MEDS: SODIUM CHLORIDE 0.9% 1,000 ML IV SCH (17:31)
[2016-12-07] MEDS: ACETAMINOPHEN TAB 325 MG TAB PO PRN ×2 (17:35→21:34)
--- NOTE | 2016-12-07 18:28 | P.PN ---
Subjective Patient is a 76-year-old male, patient of Dr. Thomas in the outpatient setting, with medical history significant for lung cancer with resection, COPD, chronic hypoxic respiratory failure on home O2, atrial fibrillation, and hypertension, admitted through the emergency department via EMS with complaints of increased shortness of breath and chest pressure ongoing for approximately 3 days. Patient recently finished a course of antibiotics for urinary tract infection. No history of fevers, chills, sweats, nausea, vomiting , or abdominal pain. No urinary urgency, dysuria, hematuria. No history of constipation or diarrhea. EKG on admission with evidence of ruben sinus rhythm with incomplete right bundle branch block with no definite acute ischemia. Chest x-ray with evidence of lung carcinoma, cardiomegaly, and COPD. Echocardiogram with evidence of preserved left ventricular systolic function with an EF between 55-60%; moderate aortic valve sclerosis; moderate to severe tricuspid regurgitation; and moderate to severe pulmonary hypertension. Patient 's blood pressure was elevated at 190/94 in the emergency department. Troponins less than 0.0122, NT proBNP elevated at 3790. Patient was admitted into selective care unit will consult requested for pulmonary service and cardiology service. On 12/07/2016 the patient is being seen in follow-up. She is less short of breath. She has experienced some side effects of the treatment including some occasional palpitation. I have opted to wean this patient off the steroids knowing that she is already improving and her breathing is improved and she is less short of breath. I'm also going to discontinue the Perforomist based on her reported symptoms of palpitation. She has no chest pain. She is quite weak. Appetite is also diminished. She is very much debilitated due to her advanced COPD and chronic hypoxic respiratory failure. X-ray shows no acute changes Objective - Vital Signs Vital signs: Vital Signs Temp 97.1 F L 12/07/16 16:00 Pulse 71 12/07/16 16:00 Resp 18 12/07/16 16:00 BP 130/68 12/07/16 16:00 Pulse Ox 91 L 12/07/16 16:00 Intake & Output 12/06/16 12/07/16 12/07/16 18:59 06:59 18:59 Intake Total 380 640 480 Output Total 450 800 Balance 380 190 -320 Weight 42.5 kg Intake: IV 200 40 Sodium Chloride 0.9% 1, 200 40 000 ml @ 20 mls/hr IV . Q24H [facility] Rx#:[id number] Oral 180 600 480 Output: Urine 450 800 Other: Voiding Method Toilet Toilet Toilet # Voids 2 1 - Exam thin, frail, cachectic. Not in acute distress.Head exam was generally normal. There was no scleral icterus or corneal arcus. Mucous membranes were moist.Neck was supple and without jugular venous distension, thyromegaly, or carotid bruits. Carotids were easily palpable bilaterally. There was no adenopathy. Lung sounds are diminished bilaterally along with some few scattered expiratory wheeze.Cardiac exam revealed the PMI to be normally situated and sized. The rhythm was regular and no extrasystoles were noted during several minutes of auscultation. The first and second heart sounds were normal and physiologic splitting of the second heart sound was noted. There were no murmurs, rubs, clicks, or gallops.Abdominal exam revealed normal bowel sounds. The abdomen was soft, non-tender, and without masses, organomegaly, or appreciable enlargement of the abdominal aorta.Examination of the extremities revealed easily palpable radial, femoral and pedal pulses. There was no cyanosis, clubbing or edema. - Labs CBC & Chem 7: 12/06/16 06:59 12/07/16 05:41 Labs: Abnormal Lab Results - Last 24 Hours (Table) 12/06/16 12/07/16 12/07/16 Range/Units 20:46 05:41 06:17 Chloride 84 L (98-107) mmol/L Carbon Dioxide 39 H (22-30) mmol/L BUN 68 H (7-17) mg/dL Creatinine 1.26 H (0.52-1.04) mg/dL Glucose 114 H (74-99) mg/dL POC Glucose (mg/dL) 130 H 102 H (75-99) mg/dL 12/07/16 12/07/16 Range/Units 11:48 16:29 Chloride (98-107) mmol/L Carbon Dioxide (22-30) mmol/L BUN (7-17) mg/dL Creatinine (0.52-1.04) mg/dL Glucose (74-99) mg/dL POC Glucose (mg/dL) 147 H 114 H (75-99) mg/dL Assessment and Plan Plan: Assessment 1 advanced COPD with acute exacerbation secondary shortness of breath 2 chronic hypoxic respiratory failure due to advanced COPD. The patient has had previous hospitalization for COPD exacerbation and last was approximately 6 months ago 3 non-small cell lung cancer with a previous right middle lobe resection and subsequent wedge resection of the right upper lobe lesion followed by radiation therapy/CyberKnife therapy to a lung nodule and 4 esophageal cancer with previous esophagectomy transhiatal 5 cachexia and weight loss 6 chronic atrial fibrillation 7 hypertension 8 hyperlipidemia 9 chronic malnourishment 10 chronic anemia. 11. Azotemia/acute kidney injury secondary to diuresis Plan Hold on the Lasix if the BUN and creatinine continued to rise. This continued IV Solu-Medrol and put the patient prednisone burst taper. Discontinue Perforomist due to the reported side effects. Cut down the Pulmicort dose 0.5 mg last treatment twice a day. Continue Xopenex tablets treatments around the clock. Long-term prognosis poor baseline above-mentioned comorbidities. We'll continue to follow.
[2016-12-07] MEDS: BUDESONIDE 0.5 MG/2 ML NEBU INHALATION SCH (20:15)
[2016-12-07] MEDS: SULFAMETHOX-TMP 400-80MG 1 EACH TAB PO SCH (20:19)
[2016-12-07 20:41] LABS: Glucose,Whole Blood 121 mg/dL (75-99)
[2016-12-08] MEDS: clonazePAM 0.5 MG TAB PO SCH ×2 (00:11→10:37)
[2016-12-08] MEDS: MIRTAZAPINE 15 MG TAB PO SCH ×2 (00:11→21:24)
[2016-12-08] MEDS: ACETAMINOPHEN TAB 325 MG TAB PO PRN ×2 (03:53→23:13)
[2016-12-08 05:45] LABS: Glucose,Whole Blood 131 mg/dL (75-99)
[2016-12-08] MEDS: INSULIN LISPRO (humaLOG) 300 UNIT/3 ML VIAL SQ SCH ×4 (06:58→21:25)
[2016-12-08 07:26] LABS: Calcium 9.2 mg/dL (8.4-10.2); Potassium 5.2 mmol/L (3.5-5.1)
[2016-12-08 08:31] LABS: Glucose,Whole Blood 127 mg/dL (75-99)
[2016-12-08] MEDS: BUDESONIDE 0.5 MG/2 ML NEBU INHALATION SCH ×2 (08:45→20:19)
--- NOTE | 2016-12-08 10:06 | P.PN ---
Subjective Patient is a 76-year-old male, patient of mine, with medical history significant for lung cancer with resection 2, COPD, chronic hypoxic respiratory failure on home O2, GI stromal cancer, atrial fibrillation, and hypertension, admitted through the emergency department via EMS with complaints of increased shortness of breath and chest pressure ongoing for approximately 3 days. Patient recently finished a course of antibiotics for urinary tract infection. No history of fevers, chills, sweats, nausea, vomiting , or abdominal pain. No urinary urgency, dysuria, hematuria. No history of constipation or diarrhea. EKG on admission with evidence of ruben sinus rhythm with incomplete right bundle branch block with no definite acute ischemia. Chest x-ray with evidence of lung carcinoma, cardiomegaly, and COPD. Echocardiogram with evidence of preserved left ventricular systolic function with an EF between 55-60%; moderate aortic valve sclerosis; moderate to severe tricuspid regurgitation; and moderate to severe pulmonary hypertension. Patient 's blood pressure was elevated at 190/94 in the emergency department. Troponins less than 0.0122, NT proBNP elevated at 3790. Patient was admitted into selective care unit will consult requested for pulmonary service and cardiology service. Patient is much more sedated today, most likely from her Klonopin . Her daughters at bedside we discussed her care. Dr. Caldwell's notes from yesterday were reviewed. Objective - Vital Signs Vital signs: Vital Signs Temp 97.1 F L 12/08/16 08:25 Pulse 72 12/08/16 08:56 Resp 18 12/08/16 08:25 BP 150/66 12/08/16 08:25 Pulse Ox 97 12/08/16 08:25 Intake & Output 12/07/16 12/08/16 12/08/16 18:59 06:59 18:59 Intake Total 480 160 Output Total 800 200 Balance -320 -40 Weight 42.8 kg Intake: IV 160 Sodium Chloride 0.9% 1, 160 000 ml @ 20 mls/hr IV . Q24H [facility] Rx#:[id number] Oral 480 Output: Urine 800 200 Other: Voiding Method Toilet Toilet Toilet # Voids 1 - Exam GENERAL: Pt is awake, frail looking, thin, in mild respiratory distress. She appears tachypnic at rest. NECK:Normal range of motion, supple without lymphadenopathy or JVD. LUNGS: Breath sounds diminished to auscultation bilaterally. No wheezes, rales , or rhonchi could be auscultated due to the poor air exchange, but it is improved from 1 day ago. HEART: Heart S1, S2, no S3 or S4. Regular rate and rhythm. Systolic murmur. ABDOMEN: Soft, nontender, nondistended, normoactive bowel sounds. No guarding, no rebound. No masses or organomegaly appreciated. EXTREMITIES: Palpable peripheral pulses. Trace edema to bilateral lower extremities. No calf tenderness. NEUROLOGICAL: Pt oriented x 3. Cranial nerves II through XII grossly intact. Strength and sensation grossly intact. PSYCH: Anxious. SKIN: Warm, dry, intact. No rashes or lesions. - Labs CBC & Chem 7: 12/06/16 06:59 12/08/16 05:59 Labs: Abnormal Lab Results - Last 24 Hours (Table) 12/07/16 12/07/16 12/07/16 Range/Units 11:48 16:29 20:39 Potassium (3.5-5.1) mmol/L Chloride (98-107) mmol/L Carbon Dioxide (22-30) mmol/L BUN (7-17) mg/dL Creatinine (0.52-1.04) mg/dL Glucose (74-99) mg/dL POC Glucose (mg/dL) 147 H 114 H 121 H (75-99) mg/dL 12/08/16 12/08/16 12/08/16 Range/Units 05:44 05:59 08:19 Potassium 5.2 H (3.5-5.1) mmol/L Chloride 87 L (98-107) mmol/L Carbon Dioxide 37 H (22-30) mmol/L BUN 68 H (7-17) mg/dL Creatinine 1.17 H (0.52-1.04) mg/dL Glucose 128 H (74-99) mg/dL POC Glucose (mg/dL) 131 H 127 H (75-99) mg/dL Assessment and Plan Plan: 1. Shortness of breath and atypical chest pain, multifactorial, secondary to acute COPD exacerbation and acute diastolic congestive heart failure.: Cardiology and pulmonology service are following, recommendations noted. Patient is currently on oral prednisone, Pulmicort, Xopenex, Lasix, 2. Paroxysmal atrial fibrillation: Continue Elequis, aspirin, lisinopril, metoprolol, amlodipine 3. Hypertension: Continue the medications as above, her blood pressures have been elevated, 4. Anemia of chronic disease: We'll monitor hemoglobin 9.5 today 5. Chronic hypoxic respiratory failure. Patient on 2 L oxygen around-the- clock 6. Anxiety and depression: We'll monitor for worsening symptoms,n, she seems slightly sedated today, I'll hold her Klonopin 7. Severe pulmonary hypertension: Cardiology and pulmonology following. 8. 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 History of lung cancer, non-small cell carcinoma status post right middle lobe resection and, right upper lobe lesion: Stable 10. History of remote nicotine dependence. 11. GI prophylaxis: She'll continue on famotidine 12. DVT prophylaxis: She remains on Elequis 13. Medical debility: Physical therapy to evaluate. 14. Mild Acute renal failure/Renal insufficiency: Creatinine is now 1.17, GFR is down to 45, most likely from diuretics, now on by mouth Lasix, we'll continue to monitor this I will await business objects consultant recommendations. I will plan a discharging her later this afternoon, if her mentation improves to baseline.
[2016-12-08 11:30] LABS: ABG PCO2 76 mmHg (35-45)
[2016-12-08 11:31] LABS: ABG Base Excess 10.1 mmol/L; ABG HCO3 37 mmol/L (21-25); ABG PO2 109 mmHg (83-108); ABG TCO2 39 mmol/L (19-24)
[2016-12-08 12:04] LABS: Glucose,Whole Blood 147 mg/dL (75-99)
[2016-12-08] MEDS: APIXABAN 2.5 MG TABLET PO SCH ×2 (12:12→21:24)
[2016-12-08] MEDS: FUROSEMIDE 20 MG TAB PO SCH (12:12)
[2016-12-08] MEDS: FAMOTIDINE 20 MG TAB PO SCH (12:12)
[2016-12-08] MEDS: LISINOPRIL 10 MG TAB PO SCH ×2 (12:12→17:02)
[2016-12-08] MEDS: amLODIPine 5 MG TAB PO SCH ×2 (12:12→21:24)
[2016-12-08] MEDS: METOPROLOL TARTRATE 50 MG TAB PO SCH ×4 (12:13→23:13)
[2016-12-08] MEDS: SULFAMETHOX-TMP 400-80MG 1 EACH TAB PO SCH (12:13)
--- NOTE | 2016-12-08 12:25 | P.PN ---
Subjective Patient is a 76-year-old male, patient of Dr. Thomas in the outpatient setting, with medical history significant for lung cancer with resection, COPD, chronic hypoxic respiratory failure on home O2, atrial fibrillation, and hypertension, admitted through the emergency department via EMS with complaints of increased shortness of breath and chest pressure ongoing for approximately 3 days. Patient recently finished a course of antibiotics for urinary tract infection. No history of fevers, chills, sweats, nausea, vomiting , or abdominal pain. No urinary urgency, dysuria, hematuria. No history of constipation or diarrhea. EKG on admission with evidence of ruben sinus rhythm with incomplete right bundle branch block with no definite acute ischemia. Chest x-ray with evidence of lung carcinoma, cardiomegaly, and COPD. Echocardiogram with evidence of preserved left ventricular systolic function with an EF between 55-60%; moderate aortic valve sclerosis; moderate to severe tricuspid regurgitation; and moderate to severe pulmonary hypertension. Patient 's blood pressure was elevated at 190/94 in the emergency department. Troponins less than 0.0122, NT proBNP elevated at 3790. Patient was admitted into selective care unit will consult requested for pulmonary service and cardiology service. On 12/07/2016 the patient is being seen in follow-up. She is less short of breath. She has experienced some side effects of the treatment including some occasional palpitation. I have opted to wean this patient off the steroids knowing that she is already improving and her breathing is improved and she is less short of breath. I'm also going to discontinue the Perforomist based on her reported symptoms of palpitation. She has no chest pain. She is quite weak. Appetite is also diminished. She is very much debilitated due to her advanced COPD and chronic hypoxic respiratory failure. X-ray shows no acute changes On 12/08/2016, was asked to give this patient immediately as the patient was found to be more lethargic and unresponsive. The daughter was at the bedside. She told me that since early this morning the patient was less responsive and interactive. Over the past 20-30 minutes the patient became even more obtunded. Upon my evaluation, the patient had very shallow breathing and she was also having prolongation of the expiratory phase of breathing and scattered expiratory wheezes. She denies having any aspiration. She was being given clonazepam 0.25 mg 4 times a day. No reported chest pain. No swelling in lower extremities. The patient on long-term anticoagulation and the possibility of pulmonary embolism is less likely. At that point her blood gases obtained and the patient was found to have a acute on top of her on it hypercapnic respiratory failure and the pH was at 7.3 with a pCO2 of 76, and the pO2 was 100. At that point, the patient was started on a BiPAP at a pressure of 14/6 cm of water to initiated tidal volume of around 350. She became more interactive. She got transferred to the intensive care unit. I was able to wake up this patient with frequent stimulation. She would open up her eyes. She would follow-up some simple commands and she was able to move all 4 extremities. Stroke is felt to be less likely. It is likely a respiratory failure with CO2 narcosis. Chest x-ray was ordered. Blood work was also ordered. The patient has been diuresed adequately and I think she is in prerenal state. Her CODE STATUS is DO NOT RESUSCITATE DO NOT INTUBATE. Objective - Vital Signs Vital signs: Vital Signs Temp 97.1 F L 12/08/16 08:25 Pulse 74 12/08/16 11:40 Resp 18 12/08/16 11:40 BP 149/78 12/08/16 11:40 Pulse Ox 98 12/08/16 11:40 Intake & Output 12/07/16 12/08/16 12/08/16 18:59 06:59 18:59 Intake Total 480 160 Output Total 800 200 Balance -320 -40 Weight 42.8 kg Intake: IV 160 Sodium Chloride 0.9% 1, 160 000 ml @ 20 mls/hr IV . Q24H [facility] Rx#:[id number] Oral 480 Output: Urine 800 200 Other: Voiding Method Toilet Toilet Toilet # Voids 1 - Exam thin, frail, cachectic. The patient is currently tolerating a full face BiPAP mask. She is quite lethargic and obtunded and CO2 narcosis. There was no scleral icterus or corneal arcus. Mucous membranes were moist.Neck was supple and without jugular venous distension, thyromegaly, or carotid bruits. Carotids were easily palpable bilaterally. There was no adenopathy. Lung sounds are diminished bilaterally along with some few scattered expiratory wheeze.Cardiac exam revealed the PMI to be normally situated and sized. The rhythm was regular and no extrasystoles were noted during several minutes of auscultation. The first and second heart sounds were normal and physiologic splitting of the second heart sound was noted. There were no murmurs, rubs, clicks, or gallops.Abdominal exam revealed normal bowel sounds. The abdomen was soft, non- tender, and without masses, organomegaly, or appreciable enlargement of the abdominal aorta. Examination of the extremities revealed easily palpable radial , femoral and pedal pulses. There was no cyanosis, clubbing or edema. - Labs CBC & Chem 7: 12/06/16 06:59 12/08/16 05:59 Labs: Abnormal Lab Results - Last 24 Hours (Table) 12/07/16 12/07/16 12/08/16 Range/Units 16:29 20:39 05:44 ABG pH (7.35-7.45) ABG pCO2 (35-45) mmHg ABG pO2 (83-108) mmHg ABG HCO3 (21-25) mmol/L ABG Total CO2 (19-24) mmol/L Potassium (3.5-5.1) mmol/L Chloride (98-107) mmol/L Carbon Dioxide (22-30) mmol/L BUN (7-17) mg/dL Creatinine (0.52-1.04) mg/dL Glucose (74-99) mg/dL POC Glucose (mg/dL) 114 H 121 H 131 H (75-99) mg/dL 12/08/16 12/08/16 12/08/16 Range/Units 05:59 08:19 11:18 ABG pH 7.30 L (7.35-7.45) ABG pCO2 76 H* (35-45) mmHg ABG pO2 109 H (83-108) mmHg ABG HCO3 37 H (21-25) mmol/L ABG Total CO2 39 H (19-24) mmol/L Potassium 5.2 H (3.5-5.1) mmol/L Chloride 87 L (98-107) mmol/L Carbon Dioxide 37 H (22-30) mmol/L BUN 68 H (7-17) mg/dL Creatinine 1.17 H (0.52-1.04) mg/dL Glucose 128 H (74-99) mg/dL POC Glucose (mg/dL) 127 H (75-99) mg/dL 04/04/17 Range/Units 11:44 ABG pH (7.35-7.45) ABG pCO2 (35-45) mmHg ABG pO2 (83-108) mmHg ABG HCO3 (21-25) mmol/L ABG Total CO2 (19-24) mmol/L Potassium (3.5-5.1) mmol/L Chloride (98-107) mmol/L Carbon Dioxide (22-30) mmol/L BUN (7-17) mg/dL Creatinine (0.52-1.04) mg/dL Glucose (74-99) mg/dL POC Glucose (mg/dL) 147 H (75-99) mg/dL Assessment and Plan Plan: Assessment 1 advanced COPD with acute exacerbation secondary shortness of breath On 12/08/2016 the patient was seen on the telemetry unit. She was having significant diminishment in her mental status. Her breathing seemed to be much more labored and she had marked diminished breath sounds bilaterally with prolongation of the expiratory phase of breathing. Immediate blood gases showed a component of an acute on top of chronic hypercapnic respiratory failure. The patient has a component of CO2 narcosis. She was placed on a BiPAP and she got moved to the intensive care unit. Further workup is pending. 2 chronic hypoxic respiratory failure due to advanced COPD. The patient has had previous hospitalization for COPD exacerbation and last was approximately 6 months ago 3 non-small cell lung cancer with a previous right middle lobe resection and subsequent wedge resection of the right upper lobe lesion followed by radiation therapy/CyberKnife therapy to a lung nodule and 4 esophageal cancer with previous esophagectomy transhiatal 5 cachexia and weight loss 6 chronic atrial fibrillation 7 hypertension 8 hyperlipidemia 9 chronic malnourishment 10 chronic anemia. 11. Azotemia/acute kidney injury secondary to diuresis Plan Mode the patient to the intensive care unit. She'll be given a 500 mL of bolus knowing that her blood work is still showing a component of prerenal azotemia. The patient will placed on IV Solu-Medrol. The patient be kept on BiPAP at a pressure of 14/6 cm of water. The patient will have an immediate chest x-ray. The patient will have immediate blood work included a CBC and complete metabolic profile and cardiac enzymes. We'll stop the clonazepam for now. Support the patient with a BiPAP. Monitor mental status and a CAT scan of the brain may be needed if she continues to be quite lethargic and obtunded. She has a DNR/DNI CODE STATUS. The case was discussed with the family at length at the bedside. Her prognosis poor based on the fact that the patient has advanced end-stage lung disease.
[2016-12-08] MEDS: CHOLECALCIFEROL 1,000 UNIT TAB PO SCH (13:43)
[2016-12-08] MEDS: MULTIVITAMINS, THERA 1 EACH TAB PO SCH (13:43)
--- NOTE | 2016-12-08 14:06 | CDI ---
In responding to this query, please exercise your independent professional judgment. The [employer] Coding Staff and Clinical Documentation Specialists appreciate your assistance in clarifying documentation, maintaining compliance with coding guidelines, accurately documenting patients condition and capturing severity of illness. The fact that a question is asked does not imply that any particular answer is desired or expected. Communication forms are a method of clarifying documentation and are not made part of the Legal Health Record. Thank you in advance for your clarification. Last Revision, July 2015 Therese Sanchez [address] [place] [address] Documentation Clarification Form Date: 12/08/2016 1:52:00 PM From: Maritza Marks RN, CCDS Admit Date: 12/05/2016 1:09:00 PM Patient Name: Danuta Villalobos Visit Number: [id number] Dr. Alex Thomas Malnourishment has been documented in Pulmonary Progress Notes. History/Risk Factors: Esophageal ca with esophagectomy, COPD, chronic hypoxic respiratory failure, hx of lung cancer with RML resection Clinical Indicators: 12/08 Pulmonary Progress Notes: "cachexia and weight loss, chronic malnourishment. " 12/08 Attending Progress Note: General Appearance: "GENERAL: Pt is awake, frail looking, thin, in mild respiratory distress. She appears tachypnic at rest." Labs: Albumin: 4 Total Protein: 7.6 Current BMI: 18.4 Insufficient energy intake: s/p transhiatal esophagectomy for esophageal CA Weight Loss: Documented by Pulmonary Treatment: Dietary Consult: completed 12/04 Supplements: Glucerna TID Lab monitoring: Labs AM Daily In your professional opinion, can you please clarify if these findings signify one of the following conditions? Mild Protein-Calorie Malnutrition Moderate Protein-Calorie Malnutrition Severe Protein-Calorie Malnutrition Other condition, please specify Unable to determine Please document in your progress notes and discharge summary in order to capture severity of illness and risk of mortality. Include clinical findings that support your diagnosis. FYI: Press F11 to launch patient chart. Place X here if this finding has no clinical significance, is not applicable or if you are not able to provide any additional documentation. MTDD
[2016-12-08] MEDS: methylPREDNISolone SOD SUCCI 125 MG/2 ML VIAL IV SCH ×2 (14:09→18:29)
[2016-12-08 15:35] LABS: Glucose,Whole Blood 77 mg/dL (75-99)
--- NOTE | 2016-12-08 15:38 | XR ---
EXAMINATION TYPE: XR chest 1V portable DATE OF EXAM: 12/08/2016 11:43 AM COMPARISON: 12/06/2016 INDICATION: Difficulty breathing TECHNIQUE: Single frontal view of the chest is obtained. FINDINGS: The heart size is normal. The pulmonary vasculature is normal. There is a 2.4 cm mass in the superior right apex. This has a similar appearance to the comparison. E KG leads overlie the chest. IMPRESSION: 1. Right apical mass.
[2016-12-08 16:48] LABS: Glucose,Whole Blood 89 mg/dL (75-99)
[2016-12-08 16:55] LABS: Basophils % (A) 0 %; CH 27.4; CHCM 29.4; Eosinophils % (A) 0 %; HCT 30.6 % (34.0-46.0); HDW 3.34; HGB 9.2 gm/dL (11.4-16.0); Hypochromasia Marked; Luc # (Auto) 0.08; Luc % (Auto) 1; Lymphocytes # (A) 0.4 k/uL (1.0-4.8); Lymphocytes % (A) 3 %; MCH 28.2 pg (25.0-35.0); MCHC 30.2 g/dL (31.0-37.0); MCV 93.3 fL (80.0-100.0); Mean Platelet Volume 6.8; Monocytes # (A) 0.4 k/uL (0-1.0); Monocytes % (A) 3 %; Neutrophils # (A) 11.9 k/uL (1.3-7.7); Neutrophils % (A) 93 %; RBC 3.28 m/uL (3.80-5.40); RDW 14.9 % (11.5-15.5); WBC 12.8 k/uL (3.8-10.6); WBC (Perox) 12.75
[2016-12-08] MEDS: SODIUM CHLORIDE 0.9% 1,000 ML IV SCH (17:01)
[2016-12-08 17:02] LABS: Calcium 9.1 mg/dL (8.4-10.2); Potassium 4.8 mmol/L (3.5-5.1); Total Bilirubin 0.6 mg/dL (0.2-1.3)
[2016-12-08 17:47] LABS: Creatine Kinase <20 U/L (30-135)
[2016-12-08 17:56] LABS: Creatine Kinase MB 1.3 ng/mL (0.0-2.4)
[2016-12-08 20:33] LABS: Glucose,Whole Blood 121 mg/dL (75-99)
[2016-12-09] MEDS: LISINOPRIL 10 MG TAB PO SCH ×4 (01:47→20:24)
[2016-12-09 02:09] LABS: Anion Gap 11 mmol/L; Blood Urea Nitrogen 63 mg/dL (7-17); Calcium 9.3 mg/dL (8.4-10.2); Carbon Dioxide 37 mmol/L (22-30); Chloride 93 mmol/L (98-107); Glucose 129 mg/dL (74-99); Magnesium 2.4 mg/dL (1.6-2.3); Non-African American GFR(MDRD) 54 (>60 ml/min/1.73 sqM); Potassium 5.2 mmol/L (3.5-5.1); Sodium 141 mmol/L (137-145)
[2016-12-09 02:25] LABS: Basophils % (A) 0 %; CH 27.6; CHCM 29.3; Eosinophils % (A) 0 %; HCT 31.9 % (34.0-46.0); HDW 3.25; HGB 9.5 gm/dL (11.4-16.0); Hypochromasia Marked; Luc # (Auto) 0.04; Luc % (Auto) 1; Lymphocytes # (A) 0.4 k/uL (1.0-4.8); Lymphocytes % (A) 4 %; MCH 28.1 pg (25.0-35.0); MCHC 29.8 g/dL (31.0-37.0); MCV 94.3 fL (80.0-100.0); Mean Platelet Volume 6.9; Monocytes # (A) 0.2 k/uL (0-1.0); Monocytes % (A) 2 %; Neutrophils # (A) 8.2 k/uL (1.3-7.7); Neutrophils % (A) 93 %; RBC 3.38 m/uL (3.80-5.40); WBC 8.8 k/uL (3.8-10.6); WBC (Perox) 9.45
[2016-12-09] MEDS: methylPREDNISolone SOD SUCCI 125 MG/2 ML VIAL IV SCH ×5 (03:20→23:55)
[2016-12-09] MEDS: SULFAMETHOX-TMP 400-80MG 1 EACH TAB PO SCH ×4 (04:41→20:24)
--- NOTE | 2016-12-09 07:23 | XR ---
EXAMINATION TYPE: XR chest 1V DATE OF EXAM: 12/09/2016 6:55 AM COMPARISON: 12/08/2016 and 06/16/2015 HISTORY: 76 year-old female shortness of breath TECHNIQUE: Single frontal view of the chest is obtained. FINDINGS: Heart remains normal size. Atherosclerotic arch calcifications. There is some upward hilar retraction suggesting upper lung pleural parenchymal scarring and volume loss. Nipple line in the medial right upper lobe. Elevation of the left hemidiaphragm suggests additional volume loss with another staple l ine seen at the left hilum. Hyperinflation with relative lung lucencies and flattening of the hemidia phragms. Redemonstrated masslike focal opacity peripheral right upper lobe, relatively unchanged from 06/16/2015. IMPRESSION: Overall stable findings of advanced COPD with upper lung scarring and volume loss, wedge resections o n either side, and more focal masslike area of probable pleural parenchymal scarring in the right upp er lobe given stability from 06/16/2015.
[2016-12-09] MEDS: METOPROLOL TARTRATE 50 MG TAB PO SCH ×3 (07:26→23:43)
[2016-12-09 07:37] LABS: Glucose,Whole Blood 101 mg/dL (75-99)
[2016-12-09] MEDS: INSULIN LISPRO (humaLOG) 300 UNIT/3 ML VIAL SQ SCH ×4 (08:30→23:24)
[2016-12-09] MEDS: CHOLECALCIFEROL 1,000 UNIT TAB PO SCH (08:31)
[2016-12-09] MEDS: MULTIVITAMINS, THERA 1 EACH TAB PO SCH (08:31)
[2016-12-09] MEDS: APIXABAN 2.5 MG TABLET PO SCH ×2 (08:31→20:24)
[2016-12-09] MEDS: amLODIPine 5 MG TAB PO SCH ×2 (08:32→20:23)
[2016-12-09] MEDS: FAMOTIDINE 20 MG TAB PO SCH ×2 (08:32→08:41)
[2016-12-09] MEDS: BUDESONIDE 0.5 MG/2 ML NEBU INHALATION SCH ×2 (08:35→20:03)
--- NOTE | 2016-12-09 10:15 | P.PN ---
Subjective Patient is a 76-year-old male, patient of Dr. Thomas in the outpatient setting, with medical history significant for lung cancer with resection, COPD, chronic hypoxic respiratory failure on home O2, atrial fibrillation, and hypertension, admitted through the emergency department via EMS with complaints of increased shortness of breath and chest pressure ongoing for approximately 3 days. Patient recently finished a course of antibiotics for urinary tract infection. No history of fevers, chills, sweats, nausea, vomiting , or abdominal pain. No urinary urgency, dysuria, hematuria. No history of constipation or diarrhea. EKG on admission with evidence of ruben sinus rhythm with incomplete right bundle branch block with no definite acute ischemia. Chest x-ray with evidence of lung carcinoma, cardiomegaly, and COPD. Echocardiogram with evidence of preserved left ventricular systolic function with an EF between 55-60%; moderate aortic valve sclerosis; moderate to severe tricuspid regurgitation; and moderate to severe pulmonary hypertension. Patient 's blood pressure was elevated at 190/94 in the emergency department. Troponins less than 0.0122, NT proBNP elevated at 3790. Patient was admitted into selective care unit will consult requested for pulmonary service and cardiology service. On 12/07/2016 the patient is being seen in follow-up. She is less short of breath. She has experienced some side effects of the treatment including some occasional palpitation. I have opted to wean this patient off the steroids knowing that she is already improving and her breathing is improved and she is less short of breath. I'm also going to discontinue the Perforomist based on her reported symptoms of palpitation. She has no chest pain. She is quite weak. Appetite is also diminished. She is very much debilitated due to her advanced COPD and chronic hypoxic respiratory failure. X-ray shows no acute changes On 12/08/2016, was asked to give this patient immediately as the patient was found to be more lethargic and unresponsive. The daughter was at the bedside. She told me that since early this morning the patient was less responsive and interactive. Over the past 20-30 minutes the patient became even more obtunded. Upon my evaluation, the patient had very shallow breathing and she was also having prolongation of the expiratory phase of breathing and scattered expiratory wheezes. She denies having any aspiration. She was being given clonazepam 0.25 mg 4 times a day. No reported chest pain. No swelling in lower extremities. The patient on long-term anticoagulation and the possibility of pulmonary embolism is less likely. At that point her blood gases obtained and the patient was found to have a acute on top of her on it hypercapnic respiratory failure and the pH was at 7.3 with a pCO2 of 76, and the pO2 was 100. At that point, the patient was started on a BiPAP at a pressure of 14/6 cm of water to initiated tidal volume of around 350. She became more interactive. She got transferred to the intensive care unit. I was able to wake up this patient with frequent stimulation. She would open up her eyes. She would follow-up some simple commands and she was able to move all 4 extremities. Stroke is felt to be less likely. It is likely a respiratory failure with CO2 narcosis. Chest x-ray was ordered. Blood work was also ordered. The patient has been diuresed adequately and I think she is in prerenal state. Her CODE STATUS is DO NOT RESUSCITATE DO NOT INTUBATE. On 12/09/2016 the patient is being seen in follow-up. As mentioned, the patient got moved to the intensive care unit because of diminished level of consciousness and acute on top of chronic hypercapnic the story failure. She was started on BiPAP and her breathing was supported adequately. This morning she is off the BiPAP. She is awake and alert and following commands and answering questions appropriately. She has become very difficult to deal with knowing that the patient dictates the treatment and the medication that she should receive or not to receive. She has declined the BiPAP. She has declined the antibiotics. She is also declining the Xopenex tablets treatments. At times her request are quite unreasonable and they will essentially adversely affect her health condition in general. This was explained at length to her. I spent approximately 25-30 minutes counseling her and her daughter at the bedside on the importance of various bronchodilators and systemic steroids. The patient is quite debilitated. His COPD is end- stage. She also has history of non-small cell lung cancer and the details were mentioned earlier. I'm going to keep the Lasix on hold. I'm going to gently hydrate this patient knowing that she her BUN and creatinine was somewhat elevated compared to her baseline and this is probably related to intravascular volume depletion/dehydration. She is improved from the pulmonary standpoint although she cannot still completed. She has to make stops while talking. No significant rest or secretions. Cough is minimal. Always anxious. Refusing to eat. Objective - Vital Signs Vital signs: Vital Signs Temp 98 F 12/09/16 08:00 Pulse 70 12/09/16 08:47 Resp 30 H 12/09/16 08:00 BP 190/65 12/09/16 08:00 Pulse Ox 92 L 12/09/16 08:00 Intake & Output 12/08/16 12/09/16 12/09/16 18:59 06:59 18:59 Intake Total 840 477 40 Output Total 799 528 140 Balance 41 -51 -100 Weight 44.9 kg Intake: IV 840 240 40 Sodium Chloride 0.9% 1, 840 240 40 000 ml @ 20 mls/hr IV . Q24H [facility] Rx#:[id number] Oral 237 Output: Urine 799 528 140 Other: Voiding Method Indwelling Catheter Indwelling Catheter Indwelling Catheter - Exam Cachectic and thin elderly female patient mild degree of respiratory distress. Much more awake and alert and she is OA x3 and she is aware of her condition although her expectations are quite unreasonable. She has advanced lung disease /end-stage. She is not using it is a muscle breathing. She is off the BiPAP this morning. She is very thin and she has significant loss and total body protein mass.Head exam was generally normal. There was no scleral icterus or corneal arcus. Mucous membranes were moist. Neck is supple there is some mucous membrane dryness. No thrush. Lungs sounds are markedly diminished along with some progress next phase of breathing and scattered external wheezes heard throughout the lung avila bilaterally.Cardiac exam revealed the PMI to be normally situated and sized. The rhythm was regular and no extrasystoles were noted during several minutes of auscultation. The first and second heart sounds were normal and physiologic splitting of the second heart sound was noted. There were no murmurs, rubs, clicks, or gallops.Abdominal exam revealed normal bowel sounds. The abdomen was soft, non-tender, and without masses, organomegaly, or appreciable enlargement of the abdominal aorta. Extremities are showing severely atrophied muscles both in the upper and lower extremities. No cyanosis or clubbing at this point. - Labs CBC & Chem 7: 12/09/16 01:50 12/09/16 01:50 Labs: Abnormal Lab Results - Last 24 Hours (Table) 12/08/16 12/08/16 12/08/16 Range/Units 11:18 11:44 16:33 WBC 12.8 H (3.8-10.6) k/uL RBC 3.28 L (3.80-5.40) m/uL Hgb 9.2 L (11.4-16.0) gm/dL Hct 30.6 L (34.0-46.0) % MCHC 30.2 L (31.0-37.0) g/dL Neutrophils # 11.9 H (1.3-7.7) k/uL Lymphocytes # 0.4 L (1.0-4.8) k/uL ABG pH 7.30 L (7.35-7.45) ABG pCO2 76 H* (35-45) mmHg ABG pO2 109 H (83-108) mmHg ABG HCO3 37 H (21-25) mmol/L ABG Total CO2 39 H (19-24) mmol/L Potassium (3.5-5.1) mmol/L Chloride (98-107) mmol/L Carbon Dioxide (22-30) mmol/L BUN (7-17) mg/dL Creatinine (0.52-1.04) mg/dL Glucose (74-99) mg/dL POC Glucose (mg/dL) 147 H (75-99) mg/dL Magnesium (1.6-2.3) mg/dL Total Creatine Kinase (30-135) U/L Stool Occult Blood (Negative) 12/08/16 12/08/16 12/08/16 Range/Units 16:33 16:33 20:31 WBC (3.8-10.6) k/uL RBC (3.80-5.40) m/uL Hgb (11.4-16.0) gm/dL Hct (34.0-46.0) % MCHC (31.0-37.0) g/dL Neutrophils # (1.3-7.7) k/uL Lymphocytes # (1.0-4.8) k/uL ABG pH (7.35-7.45) ABG pCO2 (35-45) mmHg ABG pO2 (83-108) mmHg ABG HCO3 (21-25) mmol/L ABG Total CO2 (19-24) mmol/L Potassium (3.5-5.1) mmol/L Chloride 92 L (98-107) mmol/L Carbon Dioxide 38 H (22-30) mmol/L BUN 67 H (7-17) mg/dL Creatinine 1.20 H (0.52-1.04) mg/dL Glucose (74-99) mg/dL POC Glucose (mg/dL) 121 H (75-99) mg/dL Magnesium (1.6-2.3) mg/dL Total Creatine Kinase <20 L (30-135) U/L Stool Occult Blood (Negative) 12/08/16 12/09/16 12/09/16 Range/Units 23:00 01:50 01:50 WBC (3.8-10.6) k/uL RBC 3.38 L (3.80-5.40) m/uL Hgb 9.5 L (11.4-16.0) gm/dL Hct 31.9 L (34.0-46.0) % MCHC 29.8 L (31.0-37.0) g/dL Neutrophils # 8.2 H (1.3-7.7) k/uL Lymphocytes # 0.4 L (1.0-4.8) k/uL ABG pH (7.35-7.45) ABG pCO2 (35-45) mmHg ABG pO2 (83-108) mmHg ABG HCO3 (21-25) mmol/L ABG Total CO2 (19-24) mmol/L Potassium 5.2 H (3.5-5.1) mmol/L Chloride 93 L (98-107) mmol/L Carbon Dioxide 37 H (22-30) mmol/L BUN 63 H (7-17) mg/dL Creatinine (0.52-1.04) mg/dL Glucose 129 H (74-99) mg/dL POC Glucose (mg/dL) (75-99) mg/dL Magnesium 2.4 H (1.6-2.3) mg/dL Total Creatine Kinase (30-135) U/L Stool Occult Blood Positive H (Negative) 12/09/16 Range/Units 07:35 WBC (3.8-10.6) k/uL RBC (3.80-5.40) m/uL Hgb (11.4-16.0) gm/dL Hct (34.0-46.0) % MCHC (31.0-37.0) g/dL Neutrophils # (1.3-7.7) k/uL Lymphocytes # (1.0-4.8) k/uL ABG pH (7.35-7.45) ABG pCO2 (35-45) mmHg ABG pO2 (83-108) mmHg ABG HCO3 (21-25) mmol/L ABG Total CO2 (19-24) mmol/L Potassium (3.5-5.1) mmol/L Chloride (98-107) mmol/L Carbon Dioxide (22-30) mmol/L BUN (7-17) mg/dL Creatinine (0.52-1.04) mg/dL Glucose (74-99) mg/dL POC Glucose (mg/dL) 101 H (75-99) mg/dL Magnesium (1.6-2.3) mg/dL Total Creatine Kinase (30-135) U/L Stool Occult Blood (Negative) Assessment and Plan Plan: Assessment 1 advanced COPD with acute exacerbation secondary shortness of breath On 12/08/2016 the patient was seen on the telemetry unit. She was having significant diminishment in her mental status. Her breathing seemed to be much more labored and she had marked diminished breath sounds bilaterally with prolongation of the expiratory phase of breathing. Immediate blood gases showed a component of an acute on top of chronic hypercapnic respiratory failure. The patient has a component of CO2 narcosis. She was placed on a BiPAP and she got moved to the intensive care unit. Further workup is pending. On 12/09/2016 the patient got moved to the intensive care unit. Overnight she gets support of the BiPAP systemic steroids and bronchodilators. I came to realize that the patient refused her Xopenex and this medication was placed on hold and the patient was not receiving it. This could've contributed to her respiratory failure knowing that the patient's COPD is very borderline and her diseases and stage. No aspiration of the chest x-ray remains clear. No signs of fluid overload effect the patient is intravascularly volume depleted. Doubt pulmonary embolism lung that the patient is on long-term anticoagulation. Klonopin causing restlessness suppression is less likely knowing that the patient has been maintenance medication for an extended period of time. She is refusing BiPAP for now. She has also refused systemic steroids and various inhalers however I insist to continue with the treatment as long as the patient is in the intensive care unit and had a lengthy discussion with her in this regard. 2 chronic hypoxic respiratory failure due to advanced COPD. The patient has had previous hospitalization for COPD exacerbation and last was approximately 6 months ago 3 non-small cell lung cancer with a previous right middle lobe resection and subsequent wedge resection of the right upper lobe lesion followed by radiation therapy/CyberKnife therapy to a lung nodule and 4 esophageal cancer with previous esophagectomy transhiatal 5 cachexia and weight loss 6 chronic atrial fibrillation 7 hypertension 8 hyperlipidemia 9 chronic malnourishment 10 chronic anemia. 11. Azotemia/acute kidney injury secondary to diuresis Plan The patient needs to still use the BiPAP on and off during the day. We'll keep the IV still Medrol for another 24 hours. We'll restart the Xopenex and Atrovent. Continue the Pulmicort Respules. Watch the patient ICU for 24 hours. Gentle hydration. Encourage oral intake. We'll follow. As mentioned, her lung disease is advanced and end-stage. May need to restart low dose of clonazepam for chronic anxiety. Overall expectation by this patient on her health and condition is unreasonable and the patient has hard time understanding that her condition is quite extensive and advanced age. I tried to explain this to the patient on multiple occasions.
[2016-12-09] MEDS: LEVALBUTEROL NEB (CONC) 1.25 MG/0.5 ML AMP INHALATION SCH ×2 (10:29→15:47)
[2016-12-09] MEDS: IPRATROPIUM 0.5 MG/2.5 ML NEBU INHALATION SCH ×3 (10:29→20:03)
[2016-12-09] MEDS: clonazePAM 0.5 MG TAB PO SCH (11:12)
[2016-12-09] MEDS: SODIUM CHLORIDE 0.45% 1,000 ML IV SCH (11:12)
[2016-12-09 11:53] LABS: Glucose,Whole Blood 136 mg/dL (75-99)
--- NOTE | 2016-12-09 17:40 | P.PN ---
Subjective Patient is a 76-year-old male, patient of mine, with medical history significant for lung cancer with resection 2, COPD, chronic hypoxic respiratory failure on home O2, GI stromal cancer, atrial fibrillation, and hypertension, admitted through the emergency department via EMS with complaints of increased shortness of breath and chest pressure ongoing for approximately 3 days. Patient recently finished a course of antibiotics for urinary tract infection. No history of fevers, chills, sweats, nausea, vomiting , or abdominal pain. No urinary urgency, dysuria, hematuria. No history of constipation or diarrhea. EKG on admission with evidence of ruben sinus rhythm with incomplete right bundle branch block with no definite acute ischemia. Chest x-ray with evidence of lung carcinoma, cardiomegaly, and COPD. Echocardiogram with evidence of preserved left ventricular systolic function with an EF between 55-60%; moderate aortic valve sclerosis; moderate to severe tricuspid regurgitation; and moderate to severe pulmonary hypertension. Patient 's blood pressure was elevated at 190/94 in the emergency department. Troponins less than 0.0122, NT proBNP elevated at 3790. Patient was admitted into selective care unit will consult requested for pulmonary service and cardiology service. Patient is much more sedated today, most likely from her Klonopin . Her daughters at bedside we discussed her care. Dr. Caldwell's notes from yesterday were reviewed.She was transferred to ICU last night after she became even more obtunded. SHe was found to be Hypercapnic and started on Bipap. This worked well to improve her condition until recently when another Klonopin ws given. Objective - Vital Signs Vital signs: Vital Signs Temp 98 F 12/09/16 12:00 Pulse 50 L 12/09/16 16:04 Resp 31 H 12/09/16 14:00 BP 106/45 12/09/16 14:00 Pulse Ox 96 12/09/16 14:00 Intake & Output 12/08/16 12/09/16 12/09/16 18:59 06:59 18:59 Intake Total 840 477 310 Output Total 799 528 430 Balance 41 -51 -120 Weight 44.9 kg 44.9 kg Intake: IV 840 240 60 Sodium Chloride 0.9% 1, 840 240 60 000 ml @ 20 mls/hr IV . Q24H [facility] Rx#:[id number] Intake, IV Titration 250 Amount Sodium Chloride 0.45% 1, 250 000 ml @ 50 mls/hr IV . Q20H [facility] Rx#:[id number] Oral 237 Output: Urine 799 528 430 Other: Voiding Method Indwelling Catheter Indwelling Catheter Indwelling Catheter - Exam GENERAL: Pt is asleep but arousable, frail looking, thin, Bipap on NECK:Normal range of motion, supple without lymphadenopathy or JVD. LUNGS: Breath sounds diminished to auscultation bilaterally. No wheezes, rales , or rhonchi could be auscultated due to the poor air exchange, but it is improved from 1 day ago. HEART: Heart S1, S2, no S3 or S4. Regular rate and rhythm. Systolic murmur. ABDOMEN: Soft, nontender, nondistended, normoactive bowel sounds. No guarding, no rebound. No masses or organomegaly appreciated. EXTREMITIES: Palpable peripheral pulses. Trace edema to bilateral lower extremities. No calf tenderness. NEUROLOGICAL: Pt orientation untestable PSYCH: N/C SKIN: Warm, dry, intact. No rashes or lesions. - Labs CBC & Chem 7: 12/09/16 01:50 12/09/16 01:50 Labs: Abnormal Lab Results - Last 24 Hours (Table) 12/08/16 12/08/16 12/08/16 Range/Units 16:33 20:31 23:00 RBC (3.80-5.40) m/uL Hgb (11.4-16.0) gm/dL Hct (34.0-46.0) % MCHC (31.0-37.0) g/dL Neutrophils # (1.3-7.7) k/uL Lymphocytes # (1.0-4.8) k/uL Potassium (3.5-5.1) mmol/L Chloride (98-107) mmol/L Carbon Dioxide (22-30) mmol/L BUN (7-17) mg/dL Glucose (74-99) mg/dL POC Glucose (mg/dL) 121 H (75-99) mg/dL Magnesium (1.6-2.3) mg/dL Total Creatine Kinase <20 L (30-135) U/L Stool Occult Blood Positive H (Negative) 12/09/16 12/09/16 12/09/16 Range/Units 01:50 01:50 07:35 RBC 3.38 L (3.80-5.40) m/uL Hgb 9.5 L (11.4-16.0) gm/dL Hct 31.9 L (34.0-46.0) % MCHC 29.8 L (31.0-37.0) g/dL Neutrophils # 8.2 H (1.3-7.7) k/uL Lymphocytes # 0.4 L (1.0-4.8) k/uL Potassium 5.2 H (3.5-5.1) mmol/L Chloride 93 L (98-107) mmol/L Carbon Dioxide 37 H (22-30) mmol/L BUN 63 H (7-17) mg/dL Glucose 129 H (74-99) mg/dL POC Glucose (mg/dL) 101 H (75-99) mg/dL Magnesium 2.4 H (1.6-2.3) mg/dL Total Creatine Kinase (30-135) U/L Stool Occult Blood (Negative) 12/09/16 Range/Units 11:52 RBC (3.80-5.40) m/uL Hgb (11.4-16.0) gm/dL Hct (34.0-46.0) % MCHC (31.0-37.0) g/dL Neutrophils # (1.3-7.7) k/uL Lymphocytes # (1.0-4.8) k/uL Potassium (3.5-5.1) mmol/L Chloride (98-107) mmol/L Carbon Dioxide (22-30) mmol/L BUN (7-17) mg/dL Glucose (74-99) mg/dL POC Glucose (mg/dL) 136 H (75-99) mg/dL Magnesium (1.6-2.3) mg/dL Total Creatine Kinase (30-135) U/L Stool Occult Blood (Negative) Assessment and Plan Plan: 1. Shortness of breath and atypical chest pain, multifactorial, secondary to acute COPD exacerbation and acute diastolic congestive heart failure.: Cardiology and pulmonology service are following, recommendations noted. Patient is currently on oral prednisone, Pulmicort, Xopenex, Lasix, 2. Paroxysmal atrial fibrillation: Continue Elequis, aspirin, lisinopril, metoprolol, amlodipine 3. Hypertension: Continue the medications as above, her blood pressures have been elevated, 4. Anemia of chronic disease: We'll monitor hemoglobin 9.5 today 5. Chronic hypoxic respiratory failure with Hypercapnia: now in ICU on BIPAP, await pulmonolgy recommendations 6. Anxiety and depression: D/C Klonopin due to its rrecurrent respiratory depression effects 7. Severe pulmonary hypertension: Cardiology and pulmonology following. 8. 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 History of lung cancer, non-small cell carcinoma status post right middle lobe resection and, right upper lobe lesion: Stable 10. History of remote nicotine dependence. 11. GI prophylaxis: She'll continue on famotidine 12. DVT prophylaxis: She remains on Elequis 13. Medical debility: Physical therapy to evaluate. 14. Mild Acute renal failure/Renal insufficiency: Creatinine is now 1.0, I will await rehabilitation consultant recommendations. We will wait on xfer out of the unit Time with Patient: Greater than 30
[2016-12-09 18:17] LABS: Glucose,Whole Blood 174 mg/dL (75-99)
[2016-12-09 18:53] LABS: ABG HCO3 39 mmol/L (21-25); ABG PCO2 93 mmHg (35-45); ABG PH 7.25 (7.35-7.45); ABG PO2 72 mmHg (83-108)
[2016-12-09 18:54] LABS: ABG TCO2 42 mmol/L (19-24)
[2016-12-09] MEDS ORDERED: SODIUM CHLORIDE 0.45% 1,000 ML IV SCH (19:45)
--- NOTE | 2016-12-09 19:51 | XR ---
EXAMINATION TYPE: XR chest 1V DATE OF EXAM: 12/09/2016 7:44 PM COMPARISON: Today HISTORY: Pneumonia. Chest pain. TECHNIQUE: Single frontal view of the chest is obtained. FINDINGS: There is a 3 cm masslike subpleural density in the lateral right upper lobe. There is no h eart failure. Thoracic aorta is atheromatous. There are no hilar masses. There is no pleural effusion . There are chest leads. IMPRESSION: No change compared to exam earlier today. Right upper lobe pleural-based mass is not sig nificantly different than 07/24/2016. COPD and pulmonary fibrosis. No gross heart failure.
[2016-12-09 19:58] LABS: ABG Base Excess 2.8 mmol/L; ABG HCO3 28 mmol/L (21-25); ABG PCO2 54 mmHg (35-45); ABG PH 7.34 (7.35-7.45); ABG PO2 75 mmHg (83-108); ABG TCO2 30 mmol/L (19-24)
[2016-12-09] MEDS ORDERED: LEVALBUTEROL NEB (CONC) 1.25 MG/0.5 ML AMP INHALATION SCH (20:00)
[2016-12-09] MEDS: MIRTAZAPINE 15 MG TAB PO SCH (20:24)
[2016-12-09 23:21] LABS: Glucose,Whole Blood 99 mg/dL (75-99)
[2016-12-10] MEDS: LEVALBUTEROL NEB (CONC) 1.25 MG/0.5 ML AMP INHALATION SCH ×6 (00:12→12:24)
[2016-12-10] MEDS: IPRATROPIUM 0.5 MG/2.5 ML NEBU INHALATION SCH ×8 (00:12→20:36)
[2016-12-10] MEDS: ACETAMINOPHEN TAB 325 MG TAB PO PRN (04:48)
[2016-12-10 05:10] LABS: Basophils % (A) 0 %; Eosinophils % (A) 0 %; HCT 30.9 % (34.0-46.0); HDW 3.33; HGB 9.1 gm/dL (11.4-16.0); Hypochromasia Marked; Luc # (Auto) 0.03; Luc % (Auto) 0; Lymphocytes # (A) 0.2 k/uL (1.0-4.8); Lymphocytes % (A) 2 %; MCH 28.5 pg (25.0-35.0); MCHC 29.4 g/dL (31.0-37.0); MCV 96.9 fL (80.0-100.0); Mean Platelet Volume 6.9; Monocytes # (A) 0.2 k/uL (0-1.0); Monocytes % (A) 2 %; Neutrophils # (A) 7.2 k/uL (1.3-7.7); Neutrophils % (A) 95 %; RBC 3.19 m/uL (3.80-5.40); RDW 14.5 % (11.5-15.5); WBC 7.6 k/uL (3.8-10.6); WBC (Perox) 8.05
[2016-12-10 05:27] LABS: Anion Gap 11 mmol/L; Blood Urea Nitrogen 49 mg/dL (7-17); Calcium 9.4 mg/dL (8.4-10.2); Carbon Dioxide 37 mmol/L (22-30); Chloride 92 mmol/L (98-107); Glucose 122 mg/dL (74-99); Magnesium 2.2 mg/dL (1.6-2.3); Non-African American GFR(MDRD) >60 (>60 ml/min/1.73 sqM); Potassium 5.2 mmol/L (3.5-5.1); Sodium 140 mmol/L (137-145)
[2016-12-10] MEDS: methylPREDNISolone SOD SUCCI 125 MG/2 ML VIAL IV SCH ×4 (05:46→23:18)
--- NOTE | 2016-12-10 07:27 | XR ---
EXAMINATION TYPE: XR chest 1V DATE OF EXAM: 12/10/2016 6:48 AM COMPARISON: 12/09/2016 INDICATION: Short of breath TECHNIQUE: Single frontal view of the chest is obtained. FINDINGS: The heart size is normal. The pulmonary vasculature is normal. Mass in the right upper lung field is stable. Mild scattered infiltrate may be in the right lower bas e. Focal consolidation is not evident. Findings are slightly worsening. Consider pneumonia and atelec tasis. IMPRESSION: 1. There may be some subtle early developing pneumonia or atelectasis at the right base. 2. Right upper lobe mass, present previously.
[2016-12-10 07:59] LABS: Glucose,Whole Blood 114 mg/dL (75-99)
[2016-12-10] MEDS: BUDESONIDE 0.5 MG/2 ML NEBU INHALATION SCH (08:24)
[2016-12-10] MEDS: SODIUM CHLORIDE 0.45% 1,000 ML IV SCH (09:16)
[2016-12-10] MEDS: INSULIN LISPRO (humaLOG) 300 UNIT/3 ML VIAL SQ SCH ×4 (09:17→21:01)
[2016-12-10] MEDS: LISINOPRIL 10 MG TAB PO SCH ×3 (09:17→20:55)
[2016-12-10] MEDS: METOPROLOL TARTRATE 50 MG TAB PO SCH ×3 (09:18→20:55)
[2016-12-10] MEDS: APIXABAN 2.5 MG TABLET PO SCH ×2 (09:18→20:55)
[2016-12-10] MEDS: FAMOTIDINE 20 MG TAB PO SCH ×2 (09:18→10:10)
[2016-12-10] MEDS: amLODIPine 5 MG TAB PO SCH ×2 (09:18→20:55)
[2016-12-10] MEDS: SULFAMETHOX-TMP 400-80MG 1 EACH TAB PO SCH ×2 (09:18→10:10)
[2016-12-10] MEDS: predniSONE 20 MG TAB PO SCH (09:49)
[2016-12-10 12:07] LABS: Glucose,Whole Blood 148 mg/dL (75-99)
[2016-12-10] MEDS: CHOLECALCIFEROL 1,000 UNIT TAB PO SCH (12:08)
[2016-12-10] MEDS: MULTIVITAMINS, THERA 1 EACH TAB PO SCH (12:08)
[2016-12-10 12:26] LABS: ABG PH 7.24 (7.35-7.45)
[2016-12-10 12:27] LABS: ABG Base Excess 12.3 mmol/L; ABG HCO3 40 mmol/L (21-25); ABG PCO2 97 mmHg (35-45); ABG PO2 67 mmHg (83-108); ABG TCO2 43 mmol/L (19-24)
[2016-12-10 12:33] LABS: Hemoglobin A1C 5.3 % (4.2-6.1)
--- NOTE | 2016-12-10 12:34 | P.PN ---
Subjective Patient is a 76-year-old male, patient of Dr. Thomas in the outpatient setting, with medical history significant for lung cancer with resection, COPD, chronic hypoxic respiratory failure on home O2, atrial fibrillation, and hypertension, admitted through the emergency department via EMS with complaints of increased shortness of breath and chest pressure ongoing for approximately 3 days. Patient recently finished a course of antibiotics for urinary tract infection. No history of fevers, chills, sweats, nausea, vomiting , or abdominal pain. No urinary urgency, dysuria, hematuria. No history of constipation or diarrhea. EKG on admission with evidence of ruben sinus rhythm with incomplete right bundle branch block with no definite acute ischemia. Chest x-ray with evidence of lung carcinoma, cardiomegaly, and COPD. Echocardiogram with evidence of preserved left ventricular systolic function with an EF between 55-60%; moderate aortic valve sclerosis; moderate to severe tricuspid regurgitation; and moderate to severe pulmonary hypertension. Patient 's blood pressure was elevated at 190/94 in the emergency department. Troponins less than 0.0122, NT proBNP elevated at 3790. Patient was admitted into selective care unit will consult requested for pulmonary service and cardiology service. On 12/07/2016 the patient is being seen in follow-up. She is less short of breath. She has experienced some side effects of the treatment including some occasional palpitation. I have opted to wean this patient off the steroids knowing that she is already improving and her breathing is improved and she is less short of breath. I'm also going to discontinue the Perforomist based on her reported symptoms of palpitation. She has no chest pain. She is quite weak. Appetite is also diminished. She is very much debilitated due to her advanced COPD and chronic hypoxic respiratory failure. X-ray shows no acute changes On 12/08/2016, was asked to give this patient immediately as the patient was found to be more lethargic and unresponsive. The daughter was at the bedside. She told me that since early this morning the patient was less responsive and interactive. Over the past 20-30 minutes the patient became even more obtunded. Upon my evaluation, the patient had very shallow breathing and she was also having prolongation of the expiratory phase of breathing and scattered expiratory wheezes. She denies having any aspiration. She was being given clonazepam 0.25 mg 4 times a day. No reported chest pain. No swelling in lower extremities. The patient on long-term anticoagulation and the possibility of pulmonary embolism is less likely. At that point her blood gases obtained and the patient was found to have a acute on top of her on it hypercapnic respiratory failure and the pH was at 7.3 with a pCO2 of 76, and the pO2 was 100. At that point, the patient was started on a BiPAP at a pressure of 14/6 cm of water to initiated tidal volume of around 350. She became more interactive. She got transferred to the intensive care unit. I was able to wake up this patient with frequent stimulation. She would open up her eyes. She would follow-up some simple commands and she was able to move all 4 extremities. Stroke is felt to be less likely. It is likely a respiratory failure with CO2 narcosis. Chest x-ray was ordered. Blood work was also ordered. The patient has been diuresed adequately and I think she is in prerenal state. Her CODE STATUS is DO NOT RESUSCITATE DO NOT INTUBATE. On 12/09/2016 the patient is being seen in follow-up. As mentioned, the patient got moved to the intensive care unit because of diminished level of consciousness and acute on top of chronic hypercapnic the story failure. She was started on BiPAP and her breathing was supported adequately. This morning she is off the BiPAP. She is awake and alert and following commands and answering questions appropriately. She has become very difficult to deal with knowing that the patient dictates the treatment and the medication that she should receive or not to receive. She has declined the BiPAP. She has declined the antibiotics. She is also declining the Xopenex tablets treatments. At times her request are quite unreasonable and they will essentially adversely affect her health condition in general. This was explained at length to her. I spent approximately 25-30 minutes counseling her and her daughter at the bedside on the importance of various bronchodilators and systemic steroids. The patient is quite debilitated. His COPD is end- stage. She also has history of non-small cell lung cancer and the details were mentioned earlier. I'm going to keep the Lasix on hold. I'm going to gently hydrate this patient knowing that she her BUN and creatinine was somewhat elevated compared to her baseline and this is probably related to intravascular volume depletion/dehydration. She is improved from the pulmonary standpoint although she cannot still completed. She has to make stops while talking. No significant rest or secretions. Cough is minimal. Always anxious. Refusing to eat. On 12/10/2016, the patient is being seen in follow-up. The events that occurred overnight was noted. After being on a BiPAP throughout the afternoon yesterday the patient regained her mentation and she woke up last and she was able to communicate with her family and she stayed up between 10 PM and 4 AM this morning. Following that she became progressively more lethargic and obtunded and around 8 to 9:00 this morning the patient became quite lethargic and her mentation was very much diminished. At that point she was placed back on BiPAP and currently she is on a BiPAP pressure of 60 over 4 cm of water. Her saturation is remains above 90%. The blood gases was done while in the BiPAP shows significant respiratory acidosis with a pH of 7.25 and pO2 of 92. The chest x-ray shows advanced COPD. No airspace disease or pulmonary infiltrates or pneumonia. There is a right upper lobe opacities was seen on previous chest x-rays. The patient is very much cachectic with limited pulmonary reserve and very poor nutritional status. Hemodynamically she is doing well. She has an adequate urine output. She is on half-normal seen today to 50 mL an hour. She is in a combination of Pulmicort Respules, Xopenex and Atrovent about treatments around the clock every 4 hours and IV Solu- Medrol. There is a concern that Xopenex is causing paradoxic bronchospasm and this lasts will be discontinued. Objective - Vital Signs Vital signs: Vital Signs Temp 98.5 F 12/10/16 12:00 Pulse 61 12/10/16 12:00 Resp 27 H 12/10/16 12:00 BP 90/43 12/10/16 12:00 Pulse Ox 88 L 12/10/16 11:00 Intake & Output 12/09/16 12/10/16 12/10/16 18:59 06:59 18:59 Intake Total 510 1050 300 Output Total 630 412 165 Balance -120 638 135 Weight 44.9 kg 44.7 kg Intake: IV 60 Sodium Chloride 0.9% 1, 60 000 ml @ 20 mls/hr IV . Q24H [facility] Rx#:[id number] Intake, IV Titration 450 1050 300 Amount Sodium Chloride 0.45% 1, 450 1050 300 000 ml @ 50 mls/hr IV . Q20H [facility] Rx#:[id number] Output: Urine 630 412 165 Other: Voiding Method Indwelling Catheter Indwelling Catheter Indwelling Catheter - Exam Cachectic and thin elderly female patient mild degree of respiratory distress. Diminished mental status and the patient has encephalopathy secondary to underlying hypercapnia.. She has advanced lung disease/end-stage. She is not using it is a muscle breathing. She is on the BiPAP this morning. She is very thin and she has significant loss and total body protein mass.Head exam was generally normal. There was no scleral icterus or corneal arcus. Mucous membranes were moist. Neck is supple there is some mucous membrane dryness. No thrush. Lungs sounds are markedly diminished along with some progress next phase of breathing and scattered external wheezes heard throughout the lung avila bilaterally.Cardiac exam revealed the PMI to be normally situated and sized. The rhythm was regular and no extrasystoles were noted during several minutes of auscultation. The first and second heart sounds were normal and physiologic splitting of the second heart sound was noted. There were no murmurs , rubs, clicks, or gallops.Abdominal exam revealed normal bowel sounds. The abdomen was soft, non-tender, and without masses, organomegaly, or appreciable enlargement of the abdominal aorta. Extremities are showing severely atrophied muscles both in the upper and lower extremities. No cyanosis or clubbing at this point. - Labs CBC & Chem 7: 12/10/16 04:49 12/10/16 04:49 Labs: Abnormal Lab Results - Last 24 Hours (Table) 12/09/16 12/09/16 12/09/16 Range/Units 18:16 18:38 19:47 RBC (3.80-5.40) m/uL Hgb (11.4-16.0) gm/dL Hct (34.0-46.0) % MCHC (31.0-37.0) g/dL Lymphocytes # (1.0-4.8) k/uL ABG pH 7.25 L 7.34 L (7.35-7.45) ABG pCO2 93 H* 54 H (35-45) mmHg ABG pO2 72 L 75 L (83-108) mmHg ABG HCO3 39 H 28 H (21-25) mmol/L ABG Total CO2 42 H 30 H (19-24) mmol/L ABG O2 Saturation 90.0 L (94-97) % Potassium (3.5-5.1) mmol/L Chloride (98-107) mmol/L Carbon Dioxide (22-30) mmol/L BUN (7-17) mg/dL Glucose (74-99) mg/dL POC Glucose (mg/dL) 174 H (75-99) mg/dL 12/10/16 12/10/16 12/10/16 Range/Units 04:49 04:49 07:57 RBC 3.19 L (3.80-5.40) m/uL Hgb 9.1 L (11.4-16.0) gm/dL Hct 30.9 L (34.0-46.0) % MCHC 29.4 L (31.0-37.0) g/dL Lymphocytes # 0.2 L (1.0-4.8) k/uL ABG pH (7.35-7.45) ABG pCO2 (35-45) mmHg ABG pO2 (83-108) mmHg ABG HCO3 (21-25) mmol/L ABG Total CO2 (19-24) mmol/L ABG O2 Saturation (94-97) % Potassium 5.2 H (3.5-5.1) mmol/L Chloride 92 L (98-107) mmol/L Carbon Dioxide 37 H (22-30) mmol/L BUN 49 H (7-17) mg/dL Glucose 122 H (74-99) mg/dL POC Glucose (mg/dL) 114 H (75-99) mg/dL 12/10/16 Range/Units 12:06 RBC (3.80-5.40) m/uL Hgb (11.4-16.0) gm/dL Hct (34.0-46.0) % MCHC (31.0-37.0) g/dL Lymphocytes # (1.0-4.8) k/uL ABG pH (7.35-7.45) ABG pCO2 (35-45) mmHg ABG pO2 (83-108) mmHg ABG HCO3 (21-25) mmol/L ABG Total CO2 (19-24) mmol/L ABG O2 Saturation (94-97) % Potassium (3.5-5.1) mmol/L Chloride (98-107) mmol/L Carbon Dioxide (22-30) mmol/L BUN (7-17) mg/dL Glucose (74-99) mg/dL POC Glucose (mg/dL) 148 H (75-99) mg/dL Assessment and Plan Plan: Assessment 1 advanced COPD with acute exacerbation secondary shortness of breath On 12/08/2016 the patient was seen on the telemetry unit. She was having significant diminishment in her mental status. Her breathing seemed to be much more labored and she had marked diminished breath sounds bilaterally with prolongation of the expiratory phase of breathing. Immediate blood gases showed a component of an acute on top of chronic hypercapnic respiratory failure. The patient has a component of CO2 narcosis. She was placed on a BiPAP and she got moved to the intensive care unit. Further workup is pending. On 12/09/2016 the patient got moved to the intensive care unit. Overnight she gets support of the BiPAP systemic steroids and bronchodilators. I came to realize that the patient refused her Xopenex and this medication was placed on hold and the patient was not receiving it. This could've contributed to her respiratory failure knowing that the patient's COPD is very borderline and her diseases and stage. No aspiration of the chest x-ray remains clear. No signs of fluid overload effect the patient is intravascularly volume depleted. Doubt pulmonary embolism lung that the patient is on long-term anticoagulation. Klonopin causing restlessness suppression is less likely knowing that the patient has been maintenance medication for an extended period of time. She is refusing BiPAP for now. She has also refused systemic steroids and various inhalers however I insist to continue with the treatment as long as the patient is in the intensive care unit and had a lengthy discussion with her in this regard. On 12/10/2016, The patient is having recurrent episodes of hypercapnic the story failure. The exact cause is not clear. One part is that the patient is having some paradoxic reactions to Xopenex although this is much less likely. I think she has limited pulmonary reserve and she has respiratory fatigue which is causing further hypoventilation and hypercapnia. On her chest x-ray there is no signs of pneumonia fluid overload and atelectasis or aspiration. As such I think there is no other exacerbating factor including the potential of medication-induced hypoventilation as the patient was taken off clonidine. 2 chronic hypoxic respiratory failure due to advanced COPD. The patient has had previous hospitalization for COPD exacerbation and last was approximately 6 months ago 3 non-small cell lung cancer with a previous right middle lobe resection and subsequent wedge resection of the right upper lobe lesion followed by radiation therapy/CyberKnife therapy to a lung nodule and 4 esophageal cancer with previous esophagectomy transhiatal 5 cachexia and weight loss 6 chronic atrial fibrillation 7 hypertension 8 hyperlipidemia 9 chronic malnourishment 10 chronic anemia. 11. Azotemia/acute kidney injury secondary to diuresis Plan Condition is extremely critical. The patient's family want to help her with any other potential intervention. I had a lengthy discussion with them. I told him that we are losing ground on her condition special that she has not eaten and met her caloric requirements for the past 7-10 days. She has become progressively more debilitated and cachectic and weak. We will probably having episodes of hypoventilation secondary to advanced to respiratory insufficiency and neuromuscular weakness along with Restoril muscle fatigue and COPD. We have noted episodes of hypercapnic that she is going through and she is requiring BiPAP on and off throughout the day. Currently she is having significant elevation in her CO2 levels. We'll keep her on a BiPAP. We'll repeat the blood gases in 3-4 hours. Intubation is not a good option knowing that she may end up being vent dependent for a long period of time and she may not wean appropriately. The family understands that. We will continue the supportive care. We'll stop the Xopenex. We'll follow. There is a critically care evaluation that was done in 45 minutes. Time with Patient: Greater than 30
[2016-12-10 12:54] LABS: Glucose,Whole Blood 121 mg/dL (75-99)
[2016-12-10] MEDS: DEXTROSE 5%-0.45% NACL 1,000 ML IV SCH (13:00)
--- NOTE | 2016-12-10 13:38 | CDI ---
In responding to this query, please exercise your independent professional judgment. The [facility] Coding Staff and Clinical Documentation Specialists appreciate your assistance in clarifying documentation, maintaining compliance with coding guidelines, accurately documenting patients condition and capturing severity of illness. The fact that a question is asked does not imply that any particular answer is desired or expected. Communication forms are a method of clarifying documentation and are not made part of the Legal Health Record. Thank you in advance for your clarification. Last Revision, July 2015 Therese Sanchez [address] [place] [address] Documentation Clarification Form 2nd request Date: 12/08/2016 1:52:00 PM From: Maritza Marks RN, CCDS Admit Date: 12/05/2016 1:09:00 PM Patient Name: Danuta Villalobos Visit Number: [id number] Dr. Alex Thomas Malnourishment has been documented in Pulmonary Progress Notes. History/Risk Factors: Esophageal ca with esophagectomy, COPD, chronic hypoxic respiratory failure, hx of lung cancer with RML resection Clinical Indicators: Pulmonary Progress Notes: "cachexia and weight loss, chronic malnourishment." 12/08 Attending Progress Note: General Appearance: "GENERAL: Pt is awake, frail looking, thin, in mild respiratory distress. She appears tachypnic at rest." Labs: Albumin: 4 Total Protein: 7.6 Current BMI: 18.4 Insufficient energy intake: s/p transhiatal esophagectomy for esophageal CA Weight Loss: Documented by Pulmonary Treatment: Dietary Consult: completed 12/04 Supplements: Glucerna TID Lab monitoring: Labs AM Daily In your professional opinion, can you please clarify if these findings signify one of the following conditions? Mild Protein-Calorie Malnutrition Moderate Protein-Calorie Malnutrition Severe Protein-Calorie Malnutrition Other condition, please specify Unable to determine Please document in your progress notes and discharge summary in order to capture severity of illness and risk of mortality. Include clinical findings that support your diagnosis. FYI: Press F11 to launch patient chart. Place X here if this finding has no clinical significance, is not applicable or if you are not able to provide any additional documentation. MTDD
[2016-12-10 16:39] LABS: ABG PH 7.29 (7.35-7.45)
[2016-12-10 16:40] LABS: ABG PCO2 86 mmHg (35-45); ABG PO2 72 mmHg (83-108)
[2016-12-10 16:42] LABS: ABG Base Excess 13.4 mmol/L; ABG HCO3 40 mmol/L (21-25); ABG TCO2 43 mmol/L (19-24)
--- NOTE | 2016-12-10 16:57 | P.PN ---
Subjective Patient is a 76-year-old male, patient of mine, with medical history significant for lung cancer with resection 2, COPD, chronic hypoxic respiratory failure on home O2, GI stromal cancer, atrial fibrillation, and hypertension, admitted through the emergency department via EMS with complaints of increased shortness of breath and chest pressure ongoing for approximately 3 days. Patient recently finished a course of antibiotics for urinary tract infection. No history of fevers, chills, sweats, nausea, vomiting , or abdominal pain. No urinary urgency, dysuria, hematuria. No history of constipation or diarrhea. EKG on admission with evidence of ruben sinus rhythm with incomplete right bundle branch block with no definite acute ischemia. Chest x-ray with evidence of lung carcinoma, cardiomegaly, and COPD. Echocardiogram with evidence of preserved left ventricular systolic function with an EF between 55-60%; moderate aortic valve sclerosis; moderate to severe tricuspid regurgitation; and moderate to severe pulmonary hypertension. Patient 's blood pressure was elevated at 190/94 in the emergency department. Troponins less than 0.0122, NT proBNP elevated at 3790. Patient was admitted into selective care unit will consult requested for pulmonary service and cardiology service. Patient is In the ICU. She's not feeling very well after updraft treatments with Xopenex and Atrovent. Her family thinks she is more sedated. She is refusing BiPAP, but her family is insisting she has it. Nursing appears to be caught in the middle. Objective - Vital Signs Vital signs: Vital Signs Temp 98.0 F 12/10/16 16:00 Pulse 65 12/10/16 16:00 Resp 22 12/10/16 16:00 BP 103/48 12/10/16 16:00 Pulse Ox 88 L 12/10/16 16:00 Intake & Output 12/09/16 12/10/16 12/10/16 18:59 06:59 18:59 Intake Total 510 1050 500 Output Total 630 412 305 Balance -120 638 195 Weight 44.9 kg 44.7 kg Intake: IV 60 Sodium Chloride 0.9% 1, 60 000 ml @ 20 mls/hr IV . Q24H [facility] Rx#:[id number] Intake, IV Titration 450 1050 500 Amount Dextrose 5%-0.45% NaCl 1, 200 000 ml @ 50 mls/hr IV . Q20H [facility] Rx#:[id number] Sodium Chloride 0.45% 1, 450 1050 300 000 ml @ 50 mls/hr IV . Q20H [facility] Rx#:[id number] Output: Urine 630 412 305 Other: Voiding Method Indwelling Catheter Indwelling Catheter Indwelling Catheter - Exam GENERAL: Pt is asleep but arousable, frail looking, thin, Bipap Is currently off NECK:Normal range of motion, supple without lymphadenopathy or JVD. LUNGS: Breath sounds diminished to auscultation bilaterally. No wheezes, rales , or rhonchi could be auscultated due to the poor air exchange, No significant improvement from 1 day ago HEART: Heart S1, S2, no S3 or S4. Regular rate and rhythm. Systolic murmur.Cardiac Ectopic noted. ABDOMEN: Soft, nontender, nondistended, normoactive bowel sounds. No guarding, no rebound. No masses or organomegaly appreciated. EXTREMITIES: Palpable peripheral pulses. Trace edema to bilateral lower extremities. No calf tenderness. NEUROLOGICAL: Pt orientation To self and location. PSYCH: N/C SKIN: Warm, dry, intact. No rashes or lesions. - Labs CBC & Chem 7: 12/10/16 04:49 12/10/16 04:49 Labs: Abnormal Lab Results - Last 24 Hours (Table) 12/09/16 12/09/16 12/09/16 Range/Units 18:16 18:38 19:47 RBC (3.80-5.40) m/uL Hgb (11.4-16.0) gm/dL Hct (34.0-46.0) % MCHC (31.0-37.0) g/dL Lymphocytes # (1.0-4.8) k/uL ABG pH 7.25 L 7.34 L (7.35-7.45) ABG pCO2 93 H* 54 H (35-45) mmHg ABG pO2 72 L 75 L (83-108) mmHg ABG HCO3 39 H 28 H (21-25) mmol/L ABG Total CO2 42 H 30 H (19-24) mmol/L ABG O2 Saturation 90.0 L (94-97) % Potassium (3.5-5.1) mmol/L Chloride (98-107) mmol/L Carbon Dioxide (22-30) mmol/L BUN (7-17) mg/dL Glucose (74-99) mg/dL POC Glucose (mg/dL) 174 H (75-99) mg/dL 12/10/16 12/10/16 12/10/16 Range/Units 04:49 04:49 07:57 RBC 3.19 L (3.80-5.40) m/uL Hgb 9.1 L (11.4-16.0) gm/dL Hct 30.9 L (34.0-46.0) % MCHC 29.4 L (31.0-37.0) g/dL Lymphocytes # 0.2 L (1.0-4.8) k/uL ABG pH (7.35-7.45) ABG pCO2 (35-45) mmHg ABG pO2 (83-108) mmHg ABG HCO3 (21-25) mmol/L ABG Total CO2 (19-24) mmol/L ABG O2 Saturation (94-97) % Potassium 5.2 H (3.5-5.1) mmol/L Chloride 92 L (98-107) mmol/L Carbon Dioxide 37 H (22-30) mmol/L BUN 49 H (7-17) mg/dL Glucose 122 H (74-99) mg/dL POC Glucose (mg/dL) 114 H (75-99) mg/dL 12/10/16 12/10/16 12/10/16 Range/Units 12:05 12:06 12:52 RBC (3.80-5.40) m/uL Hgb (11.4-16.0) gm/dL Hct (34.0-46.0) % MCHC (31.0-37.0) g/dL Lymphocytes # (1.0-4.8) k/uL ABG pH 7.24 L (7.35-7.45) ABG pCO2 97 H* (35-45) mmHg ABG pO2 67 L (83-108) mmHg ABG HCO3 40 H* (21-25) mmol/L ABG Total CO2 43 H (19-24) mmol/L ABG O2 Saturation 88.0 L (94-97) % Potassium (3.5-5.1) mmol/L Chloride (98-107) mmol/L Carbon Dioxide (22-30) mmol/L BUN (7-17) mg/dL Glucose (74-99) mg/dL POC Glucose (mg/dL) 148 H 121 H (75-99) mg/dL 12/10/16 Range/Units 16:30 RBC (3.80-5.40) m/uL Hgb (11.4-16.0) gm/dL Hct (34.0-46.0) % MCHC (31.0-37.0) g/dL Lymphocytes # (1.0-4.8) k/uL ABG pH 7.29 L (7.35-7.45) ABG pCO2 86 H* (35-45) mmHg ABG pO2 72 L (83-108) mmHg ABG HCO3 40 H* (21-25) mmol/L ABG Total CO2 43 H (19-24) mmol/L ABG O2 Saturation 91.0 L (94-97) % Potassium (3.5-5.1) mmol/L Chloride (98-107) mmol/L Carbon Dioxide (22-30) mmol/L BUN (7-17) mg/dL Glucose (74-99) mg/dL POC Glucose (mg/dL) (75-99) mg/dL Assessment and Plan Plan: 1. Shortness of breath and atypical chest pain, multifactorial, secondary to acute COPD exacerbation and acute diastolic congestive heart failure.: Cardiology and pulmonology service are following, recommendations noted. Patient is currently on oral prednisone, Pulmicort, Xopenex, Lasix, 2. Paroxysmal atrial fibrillation: Continue Elequis, aspirin, lisinopril, metoprolol, amlodipine 3. Hypertension: Continue the medications as above, her blood pressures have been elevated, 4. Anemia of chronic disease: We'll monitor hemoglobin 9.5 today 5. acute on Chronic hypoxic respiratory failure with Hypercapnia: in ICU, refusing BIPAP, await pulmonolgy recommendations 6. Anxiety and depression: D/C Klonopin due to its rrecurrent respiratory depression effects 7. Severe pulmonary hypertension: Cardiology and pulmonology following. 8. 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 History of lung cancer, non-small cell carcinoma status post right middle lobe resection and, right upper lobe lesion: Stable 10. History of remote nicotine dependence. 11. GI prophylaxis: She'll continue on famotidine 12. DVT prophylaxis: She remains on Elequis 13. Medical debility: Physical therapy to evaluate. 14. Mild Acute renal failure/Renal insufficiency: Creatinine is now 1.0, I will await management consultant recommendations. she seems to be doing slightly worse than the previous day. I discussed at length with her family Danuta's wishes. this a.m. she refused the BiPAP. Her family, believing her to be more hypercapnic, now wanting her to use it. ABGs do show increased CO2.I She seems to be slowly deteriorating and may not survive this admission.I will try to reinforce this to the family. I'll try to honor Danuta's wishes, in light of her family's wishes.
[2016-12-10] MEDS ORDERED: DEXTROSE 50%-WATER 50 ML SYRINGE IVP ONE (17:14)
[2016-12-10 17:15] LABS: Glucose,Whole Blood 64 mg/dL (75-99)
[2016-12-10 17:32] LABS: Glucose,Whole Blood 130 mg/dL (75-99)
[2016-12-10 20:50] LABS: Glucose,Whole Blood 104 mg/dL (75-99)
[2016-12-10] MEDS: MIRTAZAPINE 15 MG TAB PO SCH (21:01)
[2016-12-11] MEDS: IPRATROPIUM 0.5 MG/2.5 ML NEBU INHALATION SCH ×7 (01:06→23:18)
[2016-12-11] MEDS: SODIUM CHLORIDE 0.45% 1,000 ML IV SCH (04:09)
[2016-12-11 05:39] LABS: Basophils % (A) 0 %; CH 27.4; CHCM 28.4; Eosinophils % (A) 0 %; HDW 3.23; Hypochromasia Marked; Luc # (Auto) 0.09; Luc % (Auto) 1; Lymphocytes # (A) 0.6 k/uL (1.0-4.8); Lymphocytes % (A) 4 %; MCH 29.9 pg (25.0-35.0); MCHC 30.9 g/dL (31.0-37.0); MCV 96.7 fL (80.0-100.0); Mean Platelet Volume 7.1; Monocytes # (A) 0.4 k/uL (0-1.0); Monocytes % (A) 3 %; Neutrophils # (A) 12.2 k/uL (1.3-7.7); Neutrophils % (A) 91 %; RDW 14.7 % (11.5-15.5); WBC 13.4 k/uL (3.8-10.6); WBC (Perox) 13.99
[2016-12-11] MEDS: methylPREDNISolone SOD SUCCI 125 MG/2 ML VIAL IV SCH ×3 (05:48→17:52)
[2016-12-11 06:07] LABS: Blood Urea Nitrogen 44 mg/dL (7-17); Calcium 9.1 mg/dL (8.4-10.2); Chloride 91 mmol/L (98-107); Glucose 97 mg/dL (74-99); Magnesium 2.1 mg/dL (1.6-2.3); Non-African American GFR(MDRD) >60 (>60 ml/min/1.73 sqM); Phosphorous 2.3 mg/dL (2.5-4.5); Potassium 4.9 mmol/L (3.5-5.1); Sodium 135 mmol/L (137-145)
[2016-12-11 06:15] LABS: Anion Gap 6 mmol/L; Carbon Dioxide 38 mmol/L (22-30)
--- NOTE | 2016-12-11 07:22 | XR ---
EXAMINATION TYPE: XR chest 1V DATE OF EXAM: 12/11/2016 6:30 AM COMPARISON: 12/10/2016 and 12/06/2016 HISTORY: 76 year-old female shortness of breath TECHNIQUE: Single frontal view of the chest is obtained. FINDINGS: Heart is normal size. Atherosclerotic arch calcifications. Hyperinflation with mild diffuse interstit ial prominence is chronic. Blunting of the left costophrenic angle persists. Given the persistence, t his may relate to some pleural parenchymal scarring. The peripheral right upper lobe mass is unchange d. No progressive infiltrate seen. Surgical changes in the right suprahilar region and left hilum wit h a upward hilar retraction suggesting upper lung volume loss. IMPRESSION: 1. COPD with chronic postsurgical changes and upper lung volume loss. 2. Stable mass peripheral right upper lobe probably pleural parenchymal scarring given chronicity. Field spect additional pleural parenchymal scarring at the left base. 3. No new or progressive infiltrate seen.
[2016-12-11 07:53] LABS: Glucose,Whole Blood 68 mg/dL (75-99)
[2016-12-11] MEDS: INSULIN LISPRO (humaLOG) 300 UNIT/3 ML VIAL SQ SCH ×4 (08:03→21:56)
[2016-12-11] MEDS: APIXABAN 2.5 MG TABLET PO SCH ×2 (08:04→21:13)
[2016-12-11] MEDS: FAMOTIDINE 20 MG TAB PO SCH (08:04)
[2016-12-11] MEDS: METOPROLOL TARTRATE 50 MG TAB PO SCH ×3 (08:04→21:13)
[2016-12-11] MEDS: DEXTROSE 5%-0.45% NACL 1,000 ML IV SCH (08:04)
[2016-12-11] MEDS: amLODIPine 5 MG TAB PO SCH (08:04)
[2016-12-11] MEDS: LISINOPRIL 10 MG TAB PO SCH ×3 (08:05→21:13)
[2016-12-11 08:09] LABS: Glucose,Whole Blood 75 mg/dL (75-99)
[2016-12-11] MEDS: CHOLECALCIFEROL 1,000 UNIT TAB PO SCH (12:21)
[2016-12-11] MEDS: MULTIVITAMINS, THERA 1 EACH TAB PO SCH (12:22)
[2016-12-11 12:35] LABS: Glucose,Whole Blood 170 mg/dL (75-99)
--- NOTE | 2016-12-11 13:20 | P.PN ---
Subjective Patient is a 76-year-old male, patient of Dr. Thomas in the outpatient setting, with medical history significant for lung cancer with resection, COPD, chronic hypoxic respiratory failure on home O2, atrial fibrillation, and hypertension, admitted through the emergency department via EMS with complaints of increased shortness of breath and chest pressure ongoing for approximately 3 days. Patient recently finished a course of antibiotics for urinary tract infection. No history of fevers, chills, sweats, nausea, vomiting , or abdominal pain. No urinary urgency, dysuria, hematuria. No history of constipation or diarrhea. EKG on admission with evidence of ruben sinus rhythm with incomplete right bundle branch block with no definite acute ischemia. Chest x-ray with evidence of lung carcinoma, cardiomegaly, and COPD. Echocardiogram with evidence of preserved left ventricular systolic function with an EF between 55-60%; moderate aortic valve sclerosis; moderate to severe tricuspid regurgitation; and moderate to severe pulmonary hypertension. Patient 's blood pressure was elevated at 190/94 in the emergency department. Troponins less than 0.0122, NT proBNP elevated at 3790. Patient was admitted into selective care unit will consult requested for pulmonary service and cardiology service. On 12/07/2016 the patient is being seen in follow-up. She is less short of breath. She has experienced some side effects of the treatment including some occasional palpitation. I have opted to wean this patient off the steroids knowing that she is already improving and her breathing is improved and she is less short of breath. I'm also going to discontinue the Perforomist based on her reported symptoms of palpitation. She has no chest pain. She is quite weak. Appetite is also diminished. She is very much debilitated due to her advanced COPD and chronic hypoxic respiratory failure. X-ray shows no acute changes On 12/08/2016, was asked to give this patient immediately as the patient was found to be more lethargic and unresponsive. The daughter was at the bedside. She told me that since early this morning the patient was less responsive and interactive. Over the past 20-30 minutes the patient became even more obtunded. Upon my evaluation, the patient had very shallow breathing and she was also having prolongation of the expiratory phase of breathing and scattered expiratory wheezes. She denies having any aspiration. She was being given clonazepam 0.25 mg 4 times a day. No reported chest pain. No swelling in lower extremities. The patient on long-term anticoagulation and the possibility of pulmonary embolism is less likely. At that point her blood gases obtained and the patient was found to have a acute on top of her on it hypercapnic respiratory failure and the pH was at 7.3 with a pCO2 of 76, and the pO2 was 100. At that point, the patient was started on a BiPAP at a pressure of 14/6 cm of water to initiated tidal volume of around 350. She became more interactive. She got transferred to the intensive care unit. I was able to wake up this patient with frequent stimulation. She would open up her eyes. She would follow-up some simple commands and she was able to move all 4 extremities. Stroke is felt to be less likely. It is likely a respiratory failure with CO2 narcosis. Chest x-ray was ordered. Blood work was also ordered. The patient has been diuresed adequately and I think she is in prerenal state. Her CODE STATUS is DO NOT RESUSCITATE DO NOT INTUBATE. On 12/09/2016 the patient is being seen in follow-up. As mentioned, the patient got moved to the intensive care unit because of diminished level of consciousness and acute on top of chronic hypercapnic the story failure. She was started on BiPAP and her breathing was supported adequately. This morning she is off the BiPAP. She is awake and alert and following commands and answering questions appropriately. She has become very difficult to deal with knowing that the patient dictates the treatment and the medication that she should receive or not to receive. She has declined the BiPAP. She has declined the antibiotics. She is also declining the Xopenex tablets treatments. At times her request are quite unreasonable and they will essentially adversely affect her health condition in general. This was explained at length to her. I spent approximately 25-30 minutes counseling her and her daughter at the bedside on the importance of various bronchodilators and systemic steroids. The patient is quite debilitated. His COPD is end- stage. She also has history of non-small cell lung cancer and the details were mentioned earlier. I'm going to keep the Lasix on hold. I'm going to gently hydrate this patient knowing that she her BUN and creatinine was somewhat elevated compared to her baseline and this is probably related to intravascular volume depletion/dehydration. She is improved from the pulmonary standpoint although she cannot still completed. She has to make stops while talking. No significant rest or secretions. Cough is minimal. Always anxious. Refusing to eat. On 12/10/2016, the patient is being seen in follow-up. The events that occurred overnight was noted. After being on a BiPAP throughout the afternoon yesterday the patient regained her mentation and she woke up last and she was able to communicate with her family and she stayed up between 10 PM and 4 AM this morning. Following that she became progressively more lethargic and obtunded and around 8 to 9:00 this morning the patient became quite lethargic and her mentation was very much diminished. At that point she was placed back on BiPAP and currently she is on a BiPAP pressure of 60 over 4 cm of water. Her saturation is remains above 90%. The blood gases was done while in the BiPAP shows significant respiratory acidosis with a pH of 7.25 and pO2 of 92. The chest x-ray shows advanced COPD. No airspace disease or pulmonary infiltrates or pneumonia. There is a right upper lobe opacities was seen on previous chest x-rays. The patient is very much cachectic with limited pulmonary reserve and very poor nutritional status. Hemodynamically she is doing well. She has an adequate urine output. She is on half-normal seen today to 50 mL an hour. She is in a combination of Pulmicort Respules, Xopenex and Atrovent about treatments around the clock every 4 hours and IV Solu- Medrol. There is a concern that Xopenex is causing paradoxic bronchospasm and this lasts will be discontinued. On 12/11/2016, the patient is being seen in follow-up. The patient again recovered from hypercapnia and she regained back her mentation. She is awake and following commands and answering questions. I also heard that she ate a sandwich this morning. She is still using the BiPAP on and off during the day. She is quite weak and cachectic. She has however alert and conversing. She seems to be also appropriate. As mentioned earlier, I discontinued the Xopenex. The patient be kept on a combination of Pulmicort Respules and Atrovent about she moves around the clock and the patient will be kept on IV Solu-Medrol. Hemodynamically stable. Chest x-ray continues to be stable without any acute abnormalities. Objective - Vital Signs Vital signs: Vital Signs Temp 97 F L 12/11/16 08:00 Pulse 68 12/11/16 12:34 Resp 27 H 12/11/16 11:13 BP 111/53 12/11/16 11:00 Pulse Ox 99 12/11/16 11:00 Intake & Output 12/10/16 12/11/16 12/11/16 18:59 06:59 18:59 Intake Total 600 650 250 Output Total 325 504 155 Balance 275 146 95 Weight 47 kg Intake: Intake, IV Titration 600 600 250 Amount Dextrose 5%-0.45% NaCl 1, 300 600 250 000 ml @ 50 mls/hr IV . Q20H DWAIN Rx#:[id number] Sodium Chloride 0.45% 1, 300 000 ml @ 50 mls/hr IV . Q20H DWAIN Rx#:[id number] Oral 50 Output: Urine 325 504 155 Other: Voiding Method Indwelling Catheter Indwelling Catheter Indwelling Catheter # Bowel Movements 0 - Exam Cachectic and thin elderly female patient mild degree of respiratory distress. Diminished mental status and the patient has encephalopathy secondary to underlying hypercapnia.. She has advanced lung disease/end-stage. She is not using it is a muscle breathing. She is on the BiPAP this morning. She is very thin and she has significant loss and total body protein mass.Head exam was generally normal. There was no scleral icterus or corneal arcus. Mucous membranes were moist. Neck is supple there is some mucous membrane dryness. No thrush. Lungs sounds are markedly diminished along with some progress next phase of breathing and scattered external wheezes heard throughout the lung avila bilaterally.Cardiac exam revealed the PMI to be normally situated and sized. The rhythm was regular and no extrasystoles were noted during several minutes of auscultation. The first and second heart sounds were normal and physiologic splitting of the second heart sound was noted. There were no murmurs , rubs, clicks, or gallops.Abdominal exam revealed normal bowel sounds. The abdomen was soft, non-tender, and without masses, organomegaly, or appreciable enlargement of the abdominal aorta. Extremities are showing severely atrophied muscles both in the upper and lower extremities. No cyanosis or clubbing at this point. - Labs CBC & Chem 7: 12/11/16 05:17 12/11/16 05:14 Labs: Abnormal Lab Results - Last 24 Hours (Table) 12/10/16 12/10/16 12/10/16 Range/Units 16:30 17:12 17:31 WBC (3.8-10.6) k/uL RBC (3.80-5.40) m/uL Hgb (11.4-16.0) gm/dL Hct (34.0-46.0) % MCHC (31.0-37.0) g/dL Neutrophils # (1.3-7.7) k/uL Lymphocytes # (1.0-4.8) k/uL ABG pH 7.29 L (7.35-7.45) ABG pCO2 86 H* (35-45) mmHg ABG pO2 72 L (83-108) mmHg ABG HCO3 40 H* (21-25) mmol/L ABG Total CO2 43 H (19-24) mmol/L ABG O2 Saturation 91.0 L (94-97) % Sodium (137-145) mmol/L Chloride (98-107) mmol/L Carbon Dioxide (22-30) mmol/L BUN (7-17) mg/dL POC Glucose (mg/dL) 64 L 130 H (75-99) mg/dL Phosphorus (2.5-4.5) mg/dL 12/10/16 12/11/16 12/11/16 Range/Units 20:49 05:14 05:17 WBC 13.4 H (3.8-10.6) k/uL RBC 3.00 L (3.80-5.40) m/uL Hgb 9.0 L (11.4-16.0) gm/dL Hct 29.0 L (34.0-46.0) % MCHC 30.9 L (31.0-37.0) g/dL Neutrophils # 12.2 H (1.3-7.7) k/uL Lymphocytes # 0.6 L (1.0-4.8) k/uL ABG pH (7.35-7.45) ABG pCO2 (35-45) mmHg ABG pO2 (83-108) mmHg ABG HCO3 (21-25) mmol/L ABG Total CO2 (19-24) mmol/L ABG O2 Saturation (94-97) % Sodium 135 L (137-145) mmol/L Chloride 91 L (98-107) mmol/L Carbon Dioxide 38 H (22-30) mmol/L BUN 44 H (7-17) mg/dL POC Glucose (mg/dL) 104 H (75-99) mg/dL Phosphorus 2.3 L (2.5-4.5) mg/dL 12/11/16 12/11/16 Range/Units 07:32 12:32 WBC (3.8-10.6) k/uL RBC (3.80-5.40) m/uL Hgb (11.4-16.0) gm/dL Hct (34.0-46.0) % MCHC (31.0-37.0) g/dL Neutrophils # (1.3-7.7) k/uL Lymphocytes # (1.0-4.8) k/uL ABG pH (7.35-7.45) ABG pCO2 (35-45) mmHg ABG pO2 (83-108) mmHg ABG HCO3 (21-25) mmol/L ABG Total CO2 (19-24) mmol/L ABG O2 Saturation (94-97) % Sodium (137-145) mmol/L Chloride (98-107) mmol/L Carbon Dioxide (22-30) mmol/L BUN (7-17) mg/dL POC Glucose (mg/dL) 68 L 170 H (75-99) mg/dL Phosphorus (2.5-4.5) mg/dL Assessment and Plan Plan: Assessment 1 advanced COPD with acute exacerbation secondary shortness of breath On 12/08/2016 the patient was seen on the telemetry unit. She was having significant diminishment in her mental status. Her breathing seemed to be much more labored and she had marked diminished breath sounds bilaterally with prolongation of the expiratory phase of breathing. Immediate blood gases showed a component of an acute on top of chronic hypercapnic respiratory failure. The patient has a component of CO2 narcosis. She was placed on a BiPAP and she got moved to the intensive care unit. Further workup is pending. On 12/09/2016 the patient got moved to the intensive care unit. Overnight she gets support of the BiPAP systemic steroids and bronchodilators. I came to realize that the patient refused her Xopenex and this medication was placed on hold and the patient was not receiving it. This could've contributed to her respiratory failure knowing that the patient's COPD is very borderline and her diseases and stage. No aspiration of the chest x-ray remains clear. No signs of fluid overload effect the patient is intravascularly volume depleted. Doubt pulmonary embolism lung that the patient is on long-term anticoagulation. Klonopin causing restlessness suppression is less likely knowing that the patient has been maintenance medication for an extended period of time. She is refusing BiPAP for now. She has also refused systemic steroids and various inhalers however I insist to continue with the treatment as long as the patient is in the intensive care unit and had a lengthy discussion with her in this regard. On 12/10/2016, The patient is having recurrent episodes of hypercapnic the story failure. The exact cause is not clear. One part is that the patient is having some paradoxic reactions to Xopenex although this is much less likely. I think she has limited pulmonary reserve and she has respiratory fatigue which is causing further hypoventilation and hypercapnia. On her chest x-ray there is no signs of pneumonia fluid overload and atelectasis or aspiration. As such I think there is no other exacerbating factor including the potential of medication-induced hypoventilation as the patient was taken off clonazepam On 12/11/2016, the patient is slightly improved. She is was taken off the BiPAP this morning and she seems to much more alert and awake. She has however very weak and has limited reserve and she gets short of breath with minimal amount of activity. On examination air entry is improved bilaterally although the patient's breath sounds remain markedly diminished. I think she is an end- stage lung disease and she develops respiratory muscle fatigue and this was subsequently cause her to have CO2 narcosis and altered mentation. She is still being supported with BiPAP on and off during the day. 2 chronic hypoxic respiratory failure due to advanced COPD. The patient has had previous hospitalization for COPD exacerbation and last was approximately 6 months ago 3 non-small cell lung cancer with a previous right middle lobe resection and subsequent wedge resection of the right upper lobe lesion followed by radiation therapy/CyberKnife therapy to a lung nodule and 4 esophageal cancer with previous esophagectomy transhiatal 5 cachexia and weight loss 6 chronic atrial fibrillation 7 hypertension 8 hyperlipidemia 9 chronic malnourishment 10 chronic anemia. 11. Azotemia/acute kidney injury secondary to diuresis Plan We'll continue same treatment. Long-term prognosis poor. Keep the BiPAP on and off during the day and this will be used intermittently. Monitor mental status. Continue the bronchodilators. Continue systemic steroids. We'll continue to follow.
--- NOTE | 2016-12-11 17:06 | P.PN ---
Subjective Patient is a 76-year-old male, patient of mine, with medical history significant for lung cancer with resection 2, COPD, chronic hypoxic respiratory failure on home O2, GI stromal cancer, atrial fibrillation, and hypertension, admitted through the emergency department via EMS with complaints of increased shortness of breath and chest pressure ongoing for approximately 3 days. Patient recently finished a course of antibiotics for urinary tract infection. No history of fevers, chills, sweats, nausea, vomiting , or abdominal pain. No urinary urgency, dysuria, hematuria. No history of constipation or diarrhea. EKG on admission with evidence of ruben sinus rhythm with incomplete right bundle branch block with no definite acute ischemia. Chest x-ray with evidence of lung carcinoma, cardiomegaly, and COPD. Echocardiogram with evidence of preserved left ventricular systolic function with an EF between 55-60%; moderate aortic valve sclerosis; moderate to severe tricuspid regurgitation; and moderate to severe pulmonary hypertension. Patient 's blood pressure was elevated at 190/94 in the emergency department. Troponins less than 0.0122, NT proBNP elevated at 3790. Patient was admitted into selective care unit will consult requested for pulmonary service and cardiology service. Patient remains In the ICU. Her daughter is at bedside and we discussed her case.Danuta is ok with using the Bipap at this time. Dr Caldwell is concerned she may not recover enough to be Discharged. She will increase her protein intake. Objective - Vital Signs Vital signs: Vital Signs Temp 97.2 F L 12/11/16 16:00 Pulse 77 12/11/16 16:56 Resp 27 H 12/11/16 16:00 BP 98/52 12/11/16 16:00 Pulse Ox 98 12/11/16 16:00 Intake & Output 12/10/16 12/11/16 12/11/16 18:59 06:59 18:59 Intake Total 600 650 500 Output Total 325 504 330 Balance 275 146 170 Weight 47 kg Intake: Intake, IV Titration 600 600 500 Amount Dextrose 5%-0.45% NaCl 1, 300 600 500 000 ml @ 50 mls/hr IV . Q20H DWAIN Rx#:[id number] Sodium Chloride 0.45% 1, 300 000 ml @ 50 mls/hr IV . Q20H DWAIN Rx#:[id number] Oral 50 Output: Urine 325 504 330 Other: Voiding Method Indwelling Catheter Indwelling Catheter Indwelling Catheter # Bowel Movements 0 - Exam GENERAL: Pt is awake, frail looking, thin, Bipap Is currently off NECK:Normal range of motion, supple without lymphadenopathy or JVD. LUNGS: Breath sounds diminished to auscultation bilaterally. No wheezes, rales , or rhonchi could be auscultated due to the poor air exchange, No significant improvement from 1 day ago HEART: Heart S1, S2, no S3 or S4. Regular rate and rhythm. Systolic murmur.Cardiac Ectopic noted. ABDOMEN: Soft, nontender, nondistended, normoactive bowel sounds. No guarding, no rebound. No masses or organomegaly appreciated. EXTREMITIES: Palpable peripheral pulses. Trace edema to bilateral lower extremities. No calf tenderness. NEUROLOGICAL: Pt orientation To self and location. PSYCH: slow to respond to questions SKIN: Warm, dry, intact. No rashes or lesions. - Labs CBC & Chem 7: 12/11/16 05:17 12/11/16 05:14 Labs: Abnormal Lab Results - Last 24 Hours (Table) 12/10/16 12/10/16 12/10/16 Range/Units 17:12 17:31 20:49 WBC (3.8-10.6) k/uL RBC (3.80-5.40) m/uL Hgb (11.4-16.0) gm/dL Hct (34.0-46.0) % MCHC (31.0-37.0) g/dL Neutrophils # (1.3-7.7) k/uL Lymphocytes # (1.0-4.8) k/uL Sodium (137-145) mmol/L Chloride (98-107) mmol/L Carbon Dioxide (22-30) mmol/L BUN (7-17) mg/dL POC Glucose (mg/dL) 64 L 130 H 104 H (75-99) mg/dL Phosphorus (2.5-4.5) mg/dL 12/11/16 12/11/16 12/11/16 Range/Units 05:14 05:17 07:32 WBC 13.4 H (3.8-10.6) k/uL RBC 3.00 L (3.80-5.40) m/uL Hgb 9.0 L (11.4-16.0) gm/dL Hct 29.0 L (34.0-46.0) % MCHC 30.9 L (31.0-37.0) g/dL Neutrophils # 12.2 H (1.3-7.7) k/uL Lymphocytes # 0.6 L (1.0-4.8) k/uL Sodium 135 L (137-145) mmol/L Chloride 91 L (98-107) mmol/L Carbon Dioxide 38 H (22-30) mmol/L BUN 44 H (7-17) mg/dL POC Glucose (mg/dL) 68 L (75-99) mg/dL Phosphorus 2.3 L (2.5-4.5) mg/dL 12/11/16 Range/Units 12:32 WBC (3.8-10.6) k/uL RBC (3.80-5.40) m/uL Hgb (11.4-16.0) gm/dL Hct (34.0-46.0) % MCHC (31.0-37.0) g/dL Neutrophils # (1.3-7.7) k/uL Lymphocytes # (1.0-4.8) k/uL Sodium (137-145) mmol/L Chloride (98-107) mmol/L Carbon Dioxide (22-30) mmol/L BUN (7-17) mg/dL POC Glucose (mg/dL) 170 H (75-99) mg/dL Phosphorus (2.5-4.5) mg/dL Assessment and Plan Plan: 1. Shortness of breath and atypical chest pain, multifactorial, secondary to acute COPD exacerbation and acute diastolic congestive heart failure.: Cardiology and pulmonology service are following, recommendations noted. Patient is currently on IV solumedrol, Lasix, atrovent 2. Paroxysmal atrial fibrillation: Continue Elequis, aspirin, lisinopril, metoprolol, amlodipine 3. Hypertension: blood pressures has been low, hold meds if systolic <110 4. Anemia of chronic disease: We'll monitor hemoglobin 9.0 today 5. acute on Chronic hypoxic respiratory failure with Hypercapnia: in ICU, pulmonolgy following 6. Anxiety and depression: monitor, no meds 7. Severe pulmonary hypertension: Cardiology and pulmonology following. 8. 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 History of lung cancer, non-small cell carcinoma status post right middle lobe resection and, right upper lobe lesion: Stable 10. History of remote nicotine dependence. 11. GI prophylaxis: She'll continue on famotidine 12. DVT prophylaxis: She remains on Elequis 13. Medical debility: Physical therapy to evaluate. 14. Mild Acute renal failure/Renal insufficiency: Creatinine is improved, continue care, will recheck 1 day
[2016-12-11 17:32] LABS: Glucose,Whole Blood 177 mg/dL (75-99)
[2016-12-11 21:01] LABS: Glucose,Whole Blood 139 mg/dL (75-99)
[2016-12-11] MEDS: MIRTAZAPINE 15 MG TAB PO SCH ×2 (21:13→21:56)
[2016-12-12] MEDS: SODIUM CHLORIDE 0.45% 1,000 ML IV SCH (00:17)
[2016-12-12] MEDS: methylPREDNISolone SOD SUCCI 125 MG/2 ML VIAL IV SCH ×5 (00:17→23:42)
[2016-12-12] MEDS: IPRATROPIUM 0.5 MG/2.5 ML NEBU INHALATION SCH ×6 (03:22→23:32)
[2016-12-12 04:52] LABS: Basophils % (A) 0 %; CH 27.4; CHCM 28.8; Eosinophils % (A) 0 %; HCT 28.6 % (34.0-46.0); HDW 3.15; HGB 8.6 gm/dL (11.4-16.0); Hypochromasia Marked; Luc # (Auto) 0.02; Luc % (Auto) 0; Lymphocytes # (A) 0.4 k/uL (1.0-4.8); Lymphocytes % (A) 3 %; MCH 28.6 pg (25.0-35.0); MCV 95.5 fL (80.0-100.0); Mean Platelet Volume 6.8; Monocytes # (A) 0.2 k/uL (0-1.0); Monocytes % (A) 2 %; Neutrophils % (A) 95 %; RDW 14.5 % (11.5-15.5); WBC 12.6 k/uL (3.8-10.6); WBC (Perox) 13.45
[2016-12-12 05:07] LABS: Anion Gap 5 mmol/L; Blood Urea Nitrogen 34 mg/dL (7-17); Calcium 9.4 mg/dL (8.4-10.2); Carbon Dioxide 39 mmol/L (22-30); Chloride 91 mmol/L (98-107); Glucose 138 mg/dL (74-99); Magnesium 2.1 mg/dL (1.6-2.3); Non-African American GFR(MDRD) >60 (>60 ml/min/1.73 sqM); Phosphorous 2.4 mg/dL (2.5-4.5); Potassium 5.4 mmol/L (3.5-5.1); Sodium 135 mmol/L (137-145)
[2016-12-12] MEDS: DEXTROSE 5%-0.45% NACL 1,000 ML IV SCH ×2 (05:38→23:42)
--- NOTE | 2016-12-12 07:17 | XR ---
EXAMINATION TYPE: XR chest 1V DATE OF EXAM: 12/12/2016 5:33 AM COMPARISON: 12/11/2016 HISTORY: 76 year-old female shortness of breath TECHNIQUE: Single frontal view of the chest is obtained. FINDINGS: Overall stable exam with normal heart size, atherosclerotic arch calcifications, hyperinflation with interstitial prominence, blunting of the left costophrenic angle, upper lung volume loss with upward hilar retraction, and mass in the peripheral right upper lobe. No new consolidation or significant pl eural effusion. IMPRESSION: 1. Stable COPD with chronic postsurgical changes and upper lung volume loss. 2. Additional stable mass peripheral right upper lobe likely pleural parenchymal scarring given chron icity and suspected pleural parenchymal scarring at the left base. 3. No acute change seen.
[2016-12-12 07:38] LABS: Glucose,Whole Blood 140 mg/dL (75-99)
[2016-12-12] MEDS: APIXABAN 2.5 MG TABLET PO SCH ×2 (07:59→23:44)
[2016-12-12] MEDS: METOPROLOL TARTRATE 50 MG TAB PO SCH ×4 (07:59→23:44)
[2016-12-12] MEDS: FAMOTIDINE 20 MG TAB PO SCH (08:00)
[2016-12-12] MEDS: amLODIPine 5 MG TAB PO SCH (08:00)
[2016-12-12] MEDS: LISINOPRIL 10 MG TAB PO SCH ×4 (08:00→23:44)
[2016-12-12] MEDS: INSULIN LISPRO (humaLOG) 300 UNIT/3 ML VIAL SQ SCH ×4 (08:00→21:51)
--- NOTE | 2016-12-12 10:47 | P.PN ---
Subjective Patient is a 76-year-old male, patient of Dr. Thomas in the outpatient setting, with medical history significant for lung cancer with resection, COPD, chronic hypoxic respiratory failure on home O2, atrial fibrillation, and hypertension, admitted through the emergency department via EMS with complaints of increased shortness of breath and chest pressure ongoing for approximately 3 days. Patient recently finished a course of antibiotics for urinary tract infection. No history of fevers, chills, sweats, nausea, vomiting , or abdominal pain. No urinary urgency, dysuria, hematuria. No history of constipation or diarrhea. EKG on admission with evidence of ruben sinus rhythm with incomplete right bundle branch block with no definite acute ischemia. Chest x-ray with evidence of lung carcinoma, cardiomegaly, and COPD. Echocardiogram with evidence of preserved left ventricular systolic function with an EF between 55-60%; moderate aortic valve sclerosis; moderate to severe tricuspid regurgitation; and moderate to severe pulmonary hypertension. Patient 's blood pressure was elevated at 190/94 in the emergency department. Troponins less than 0.0122, NT proBNP elevated at 3790. Patient was admitted into selective care unit will consult requested for pulmonary service and cardiology service. On 12/07/2016 the patient is being seen in follow-up. She is less short of breath. She has experienced some side effects of the treatment including some occasional palpitation. I have opted to wean this patient off the steroids knowing that she is already improving and her breathing is improved and she is less short of breath. I'm also going to discontinue the Perforomist based on her reported symptoms of palpitation. She has no chest pain. She is quite weak. Appetite is also diminished. She is very much debilitated due to her advanced COPD and chronic hypoxic respiratory failure. X-ray shows no acute changes On 12/08/2016, was asked to give this patient immediately as the patient was found to be more lethargic and unresponsive. The daughter was at the bedside. She told me that since early this morning the patient was less responsive and interactive. Over the past 20-30 minutes the patient became even more obtunded. Upon my evaluation, the patient had very shallow breathing and she was also having prolongation of the expiratory phase of breathing and scattered expiratory wheezes. She denies having any aspiration. She was being given clonazepam 0.25 mg 4 times a day. No reported chest pain. No swelling in lower extremities. The patient on long-term anticoagulation and the possibility of pulmonary embolism is less likely. At that point her blood gases obtained and the patient was found to have a acute on top of her on it hypercapnic respiratory failure and the pH was at 7.3 with a pCO2 of 76, and the pO2 was 100. At that point, the patient was started on a BiPAP at a pressure of 14/6 cm of water to initiated tidal volume of around 350. She became more interactive. She got transferred to the intensive care unit. I was able to wake up this patient with frequent stimulation. She would open up her eyes. She would follow-up some simple commands and she was able to move all 4 extremities. Stroke is felt to be less likely. It is likely a respiratory failure with CO2 narcosis. Chest x-ray was ordered. Blood work was also ordered. The patient has been diuresed adequately and I think she is in prerenal state. Her CODE STATUS is DO NOT RESUSCITATE DO NOT INTUBATE. On 12/09/2016 the patient is being seen in follow-up. As mentioned, the patient got moved to the intensive care unit because of diminished level of consciousness and acute on top of chronic hypercapnic the story failure. She was started on BiPAP and her breathing was supported adequately. This morning she is off the BiPAP. She is awake and alert and following commands and answering questions appropriately. She has become very difficult to deal with knowing that the patient dictates the treatment and the medication that she should receive or not to receive. She has declined the BiPAP. She has declined the antibiotics. She is also declining the Xopenex tablets treatments. At times her request are quite unreasonable and they will essentially adversely affect her health condition in general. This was explained at length to her. I spent approximately 25-30 minutes counseling her and her daughter at the bedside on the importance of various bronchodilators and systemic steroids. The patient is quite debilitated. His COPD is end- stage. She also has history of non-small cell lung cancer and the details were mentioned earlier. I'm going to keep the Lasix on hold. I'm going to gently hydrate this patient knowing that she her BUN and creatinine was somewhat elevated compared to her baseline and this is probably related to intravascular volume depletion/dehydration. She is improved from the pulmonary standpoint although she cannot still completed. She has to make stops while talking. No significant rest or secretions. Cough is minimal. Always anxious. Refusing to eat. On 12/10/2016, the patient is being seen in follow-up. The events that occurred overnight was noted. After being on a BiPAP throughout the afternoon yesterday the patient regained her mentation and she woke up last and she was able to communicate with her family and she stayed up between 10 PM and 4 AM this morning. Following that she became progressively more lethargic and obtunded and around 8 to 9:00 this morning the patient became quite lethargic and her mentation was very much diminished. At that point she was placed back on BiPAP and currently she is on a BiPAP pressure of 60 over 4 cm of water. Her saturation is remains above 90%. The blood gases was done while in the BiPAP shows significant respiratory acidosis with a pH of 7.25 and pO2 of 92. The chest x-ray shows advanced COPD. No airspace disease or pulmonary infiltrates or pneumonia. There is a right upper lobe opacities was seen on previous chest x-rays. The patient is very much cachectic with limited pulmonary reserve and very poor nutritional status. Hemodynamically she is doing well. She has an adequate urine output. She is on half-normal seen today to 50 mL an hour. She is in a combination of Pulmicort Respules, Xopenex and Atrovent about treatments around the clock every 4 hours and IV Solu- Medrol. There is a concern that Xopenex is causing paradoxic bronchospasm and this lasts will be discontinued. On 12/11/2016, the patient is being seen in follow-up. The patient again recovered from hypercapnia and she regained back her mentation. She is awake and following commands and answering questions. I also heard that she ate a sandwich this morning. She is still using the BiPAP on and off during the day. She is quite weak and cachectic. She has however alert and conversing. She seems to be also appropriate. As mentioned earlier, I discontinued the Xopenex. The patient be kept on a combination of Pulmicort Respules and Atrovent about she moves around the clock and the patient will be kept on IV Solu-Medrol. Hemodynamically stable. Chest x-ray continues to be stable without any acute abnormalities. On 12/12/2016 I'm seeing this patient in follow-up. For the most part she is doing okay. On and off she still utilizing the BiPAP. This morning I took her off the BiPAP and admitted dropped her down to 2 L of oxygen nasal cannula. She was awake and she was able to converse and she was alert and she was appropriate. She is still on the same breast 20 medications. She did have a small amount of breakfast this morning. She is still hanging in there and that has been no deterioration in her condition. I feel like her COPD this stage but she is still not to the point where the family nor the patient already with comfort measures and hospice.. My plan is to continue with ongoing treatment and see if there is any role for some more improvement. I will consider the addition of theophylline today in addition. Chest x-ray is unchanged. Objective - Vital Signs Vital signs: Vital Signs Temp 97.2 F L 12/12/16 08:00 Pulse 75 12/12/16 10:00 Resp 33 H 12/12/16 10:00 BP 144/58 12/12/16 10:00 Pulse Ox 100 12/12/16 10:00 Intake & Output 12/11/16 12/12/16 12/12/16 18:59 06:59 18:59 Intake Total 600 600 200 Output Total 395 475 185 Balance 205 125 15 Weight 46.2 kg Intake: Intake, IV Titration 600 600 200 Amount Dextrose 5%-0.45% NaCl 1, 600 600 200 000 ml @ 50 mls/hr IV . Q20H [facility] Rx#:[id number] Output: Urine 395 475 185 Other: Voiding Method Indwelling Catheter Indwelling Catheter Indwelling Catheter # Bowel Movements 0 1 1 - Exam Cachectic and thin elderly female patient mild degree of respiratory distress. Diminished mental status and the patient has encephalopathy secondary to underlying hypercapnia.. She has advanced lung disease/end-stage. She is not using it is a muscle breathing. She is on the BiPAP this morning. She is very thin and she has significant loss and total body protein mass.Head exam was generally normal. There was no scleral icterus or corneal arcus. Mucous membranes were moist. Neck is supple there is some mucous membrane dryness. No thrush. Lungs sounds are markedly diminished along with some progress next phase of breathing and scattered external wheezes heard throughout the lung avila bilaterally.Cardiac exam revealed the PMI to be normally situated and sized. The rhythm was regular and no extrasystoles were noted during several minutes of auscultation. The first and second heart sounds were normal and physiologic splitting of the second heart sound was noted. There were no murmurs , rubs, clicks, or gallops.Abdominal exam revealed normal bowel sounds. The abdomen was soft, non-tender, and without masses, organomegaly, or appreciable enlargement of the abdominal aorta. Extremities are showing severely atrophied muscles both in the upper and lower extremities. No cyanosis or clubbing at this point. - Labs CBC & Chem 7: 12/12/16 04:18 12/12/16 04:18 Labs: Abnormal Lab Results - Last 24 Hours (Table) 12/11/16 12/11/16 12/11/16 Range/Units 12:32 17:30 20:59 WBC (3.8-10.6) k/uL RBC (3.80-5.40) m/uL Hgb (11.4-16.0) gm/dL Hct (34.0-46.0) % MCHC (31.0-37.0) g/dL Neutrophils # (1.3-7.7) k/uL Lymphocytes # (1.0-4.8) k/uL Sodium (137-145) mmol/L Potassium (3.5-5.1) mmol/L Chloride (98-107) mmol/L Carbon Dioxide (22-30) mmol/L BUN (7-17) mg/dL Glucose (74-99) mg/dL POC Glucose (mg/dL) 170 H 177 H 139 H (75-99) mg/dL Phosphorus (2.5-4.5) mg/dL 12/12/16 12/12/16 12/12/16 Range/Units 04:18 04:18 07:36 WBC 12.6 H (3.8-10.6) k/uL RBC 3.00 L (3.80-5.40) m/uL Hgb 8.6 L (11.4-16.0) gm/dL Hct 28.6 L (34.0-46.0) % MCHC 30.0 L (31.0-37.0) g/dL Neutrophils # 12.0 H (1.3-7.7) k/uL Lymphocytes # 0.4 L (1.0-4.8) k/uL Sodium 135 L (137-145) mmol/L Potassium 5.4 H (3.5-5.1) mmol/L Chloride 91 L (98-107) mmol/L Carbon Dioxide 39 H (22-30) mmol/L BUN 34 H (7-17) mg/dL Glucose 138 H (74-99) mg/dL POC Glucose (mg/dL) 140 H (75-99) mg/dL Phosphorus 2.4 L (2.5-4.5) mg/dL Assessment and Plan Plan: Assessment 1 advanced COPD with acute exacerbation secondary shortness of breath On 12/08/2016 the patient was seen on the telemetry unit. She was having significant diminishment in her mental status. Her breathing seemed to be much more labored and she had marked diminished breath sounds bilaterally with prolongation of the expiratory phase of breathing. Immediate blood gases showed a component of an acute on top of chronic hypercapnic respiratory failure. The patient has a component of CO2 narcosis. She was placed on a BiPAP and she got moved to the intensive care unit. Further workup is pending. On 12/09/2016 the patient got moved to the intensive care unit. Overnight she gets support of the BiPAP systemic steroids and bronchodilators. I came to realize that the patient refused her Xopenex and this medication was placed on hold and the patient was not receiving it. This could've contributed to her respiratory failure knowing that the patient's COPD is very borderline and her diseases and stage. No aspiration of the chest x-ray remains clear. No signs of fluid overload effect the patient is intravascularly volume depleted. Doubt pulmonary embolism lung that the patient is on long-term anticoagulation. Klonopin causing restlessness suppression is less likely knowing that the patient has been maintenance medication for an extended period of time. She is refusing BiPAP for now. She has also refused systemic steroids and various inhalers however I insist to continue with the treatment as long as the patient is in the intensive care unit and had a lengthy discussion with her in this regard. On 12/10/2016, The patient is having recurrent episodes of hypercapnic the story failure. The exact cause is not clear. One part is that the patient is having some paradoxic reactions to Xopenex although this is much less likely. I think she has limited pulmonary reserve and she has respiratory fatigue which is causing further hypoventilation and hypercapnia. On her chest x-ray there is no signs of pneumonia fluid overload and atelectasis or aspiration. As such I think there is no other exacerbating factor including the potential of medication-induced hypoventilation as the patient was taken off clonazepam On 12/11/2016, the patient is slightly improved. She is was taken off the BiPAP this morning and she seems to much more alert and awake. She has however very weak and has limited reserve and she gets short of breath with minimal amount of activity. On examination air entry is improved bilaterally although the patient's breath sounds remain markedly diminished. I think she is an end- stage lung disease and she develops respiratory muscle fatigue and this was subsequently cause her to have CO2 narcosis and altered mentation. She is still being supported with BiPAP on and off during the day. On 12/12/2016 the patient continues to be on the same treatment. Awake and alert this morning. She is on 1 L of oxygen by nasal cannula about gases will be obtained to assess her acid base status. Theophylline will be also added. Chest x-ray remains unchanged. 2 chronic hypoxic respiratory failure due to advanced COPD. The patient has had previous hospitalization for COPD exacerbation and last was approximately 6 months ago 3 non-small cell lung cancer with a previous right middle lobe resection and subsequent wedge resection of the right upper lobe lesion followed by radiation therapy/CyberKnife therapy to a lung nodule and 4 esophageal cancer with previous esophagectomy transhiatal 5 cachexia and weight loss 6 chronic atrial fibrillation 7 hypertension 8 hyperlipidemia 9 chronic malnourishment 10 chronic anemia. 11. Azotemia/acute kidney injury secondary to diuresis Plan We'll continue same treatment. Long-term prognosis poor. Keep the BiPAP on and off during the day and this will be used intermittently. Monitor mental status. Continue the bronchodilators. Continue systemic steroids. Add theophylline 200 mg by mouth twice a day. Obtain a blood gas on 1 L of oxygen nasal cannula to assess her oxygenation and acid base status. Provide diet. Family is at the bedside. We'll continue to follow.
--- NOTE | 2016-12-12 12:13 | P.PN ---
Subjective On December 05, Patient is a 76-year-old male, patient of mine, with medical history significant for lung cancer with resection 2, COPD, chronic hypoxic respiratory failure on home O2, GI stromal cancer, atrial fibrillation, and hypertension, admitted through the emergency department via EMS with complaints of increased shortness of breath and chest pressure ongoing for approximately 3 days. Patient recently finished a course of antibiotics for urinary tract infection. No history of fevers, chills, sweats, nausea, vomiting , or abdominal pain. No urinary urgency, dysuria, hematuria. No history of constipation or diarrhea. EKG on admission with evidence of ruben sinus rhythm with incomplete right bundle branch block with no definite acute ischemia. Chest x-ray with evidence of lung carcinoma, cardiomegaly, and COPD. Echocardiogram with evidence of preserved left ventricular systolic function with an EF between 55-60%; moderate aortic valve sclerosis; moderate to severe tricuspid regurgitation; and moderate to severe pulmonary hypertension. Patient 's blood pressure was elevated at 190/94 in the emergency department. Troponins less than 0.0122, NT proBNP elevated at 3790. Patient was admitted into selective care unit with consult requested for pulmonary service and cardiology service. sHe spent several days on selective. Her Solu-Medrol was slowly weaned. She had difficulties with the updrafts that she seemed to be more short of breath similar to a paradoxical response, after treatments. She had hypercapnia and confusion and was transferred to intensive care unit on December 08 Patient remains In the ICU since. Her daughter is at bedside and we discussed her case. She has tried to eat a little bit more of the protein supplement shakes. She is requiring BiPAP intermittently. Currently she is awake and confused. Objective - Vital Signs Vital signs: Vital Signs Temp 97.2 F L 12/12/16 08:00 Pulse 78 12/12/16 11:00 Resp 34 H 12/12/16 11:00 BP 125/70 12/12/16 11:00 Pulse Ox 97 12/12/16 11:00 Intake & Output 12/11/16 12/12/16 12/12/16 18:59 06:59 18:59 Intake Total 600 600 250 Output Total 395 475 225 Balance 205 125 25 Weight 46.2 kg Intake: Intake, IV Titration 600 600 250 Amount Dextrose 5%-0.45% NaCl 1, 600 600 250 000 ml @ 50 mls/hr IV . Q20H [facility] Rx#:[id number] Output: Urine 395 475 225 Other: Voiding Method Indwelling Catheter Indwelling Catheter Indwelling Catheter # Bowel Movements 0 1 1 - Exam GENERAL: Pt is awake, frail looking, thin, Bipap Is currently off NECK:Normal range of motion, supple without lymphadenopathy or JVD. LUNGS: Breath sounds diminished to auscultation bilaterally. No wheezes, rales , or rhonchi could be auscultated due to the poor air exchange, mild improvement from 1 day ago HEART: Heart S1, S2, no S3 or S4. Regular rate and rhythm. Systolic murmur.Cardiac Ectopic noted. ABDOMEN: Soft, nontender, nondistended, somewhat decreased bowel sounds. No guarding, no rebound. No masses or organomegaly appreciated. EXTREMITIES: Palpable peripheral pulses. Trace edema to bilateral lower extremities. No calf tenderness. NEUROLOGICAL: Pt orientation To self and location. PSYCH: slow to respond to questions SKIN: Warm, dry, intact. No rashes or lesions. - Labs CBC & Chem 7: 12/12/16 04:18 12/12/16 04:18 Labs: Abnormal Lab Results - Last 24 Hours (Table) 12/11/16 12/11/16 12/11/16 Range/Units 12:32 17:30 20:59 WBC (3.8-10.6) k/uL RBC (3.80-5.40) m/uL Hgb (11.4-16.0) gm/dL Hct (34.0-46.0) % MCHC (31.0-37.0) g/dL Neutrophils # (1.3-7.7) k/uL Lymphocytes # (1.0-4.8) k/uL Sodium (137-145) mmol/L Potassium (3.5-5.1) mmol/L Chloride (98-107) mmol/L Carbon Dioxide (22-30) mmol/L BUN (7-17) mg/dL Glucose (74-99) mg/dL POC Glucose (mg/dL) 170 H 177 H 139 H (75-99) mg/dL Phosphorus (2.5-4.5) mg/dL 12/12/16 12/12/16 12/12/16 Range/Units 04:18 04:18 07:36 WBC 12.6 H (3.8-10.6) k/uL RBC 3.00 L (3.80-5.40) m/uL Hgb 8.6 L (11.4-16.0) gm/dL Hct 28.6 L (34.0-46.0) % MCHC 30.0 L (31.0-37.0) g/dL Neutrophils # 12.0 H (1.3-7.7) k/uL Lymphocytes # 0.4 L (1.0-4.8) k/uL Sodium 135 L (137-145) mmol/L Potassium 5.4 H (3.5-5.1) mmol/L Chloride 91 L (98-107) mmol/L Carbon Dioxide 39 H (22-30) mmol/L BUN 34 H (7-17) mg/dL Glucose 138 H (74-99) mg/dL POC Glucose (mg/dL) 140 H (75-99) mg/dL Phosphorus 2.4 L (2.5-4.5) mg/dL Assessment and Plan Plan: 1. Acute on chronic hypercapnic Respiratory failure: She continues under pulmonology/critical care watchful eye, she continues on Atrovent [facility] Solu- Medrol, when necessary Humalog recently added theophylline 2. Paroxysmal atrial fibrillation: Continue Elequis, aspirin, lisinopril, metoprolol, amlodipine 3. Hypertension: blood pressures has been low, hold meds if systolic <110 4. Anemia of chronic disease: We'll monitor hemoglobin 9.0 today 5. Chronic diastolic congestive heart failure.: Cardiology following, patient continues on oral Lasix, metoprolol, lisinopril, amlodipine 6. Anxiety and depression: monitor, no meds 7. Severe pulmonary hypertension: Cardiology and pulmonology following. 8. 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 History of lung cancer, non-small cell carcinoma status post right middle lobe resection and, right upper lobe lesion: Stable 10. History of remote nicotine dependence. 11. GI prophylaxis: She'll continue on famotidine 12. DVT prophylaxis: She remains on Elequis 13. Medical debility: Physical therapy to evaluate. 14. Mild Acute renal failure/Renal insufficiency: Creatinine is improved, now 0.7, GFR greater than 60 15. Hyperkalemia: Mild, she remains on Lasix continue care, will recheck 1 day Time with Patient: Greater than 30
[2016-12-12 12:52] LABS: ABG PCO2 60 mmHg (35-45); ABG PH 7.43 (7.35-7.45); ABG PO2 72 mmHg (83-108)
[2016-12-12 12:53] LABS: ABG HCO3 40 mmol/L (21-25); ABG TCO2 41 mmol/L (19-24)
[2016-12-12 12:54] LABS: ABG Base Excess 14.4 mmol/L; ABG Oxygen Saturation 94.1 % (94-97)
[2016-12-12 13:01] LABS: Glucose,Whole Blood 129 mg/dL (75-99)
[2016-12-12] MEDS: CHOLECALCIFEROL 1,000 UNIT TAB PO SCH (14:28)
[2016-12-12] MEDS: MULTIVITAMINS, THERA 1 EACH TAB PO SCH (14:29)
[2016-12-12 18:11] LABS: Glucose,Whole Blood 133 mg/dL (75-99)
[2016-12-12] MEDS ORDERED: clonazePAM 0.5 MG TAB PO PRN (20:05)
[2016-12-12 21:51] LABS: Glucose,Whole Blood 188 mg/dL (75-99)
[2016-12-12] MEDS: THEOPHYLLINE 24 HOUR 200 MG CAP.ER.24H PO SCH (23:44)
[2016-12-12] MEDS: MIRTAZAPINE 15 MG TAB PO SCH (23:44)
[2016-12-13] MEDS: IPRATROPIUM 0.5 MG/2.5 ML NEBU INHALATION SCH ×6 (03:30→23:53)
[2016-12-13 04:50] LABS: Basophils % (A) 0 %; CH 27.7; CHCM 28.8; Eosinophils % (A) 0 %; HCT 27.5 % (34.0-46.0); HDW 3.02; HGB 8.1 gm/dL (11.4-16.0); Hypochromasia Marked; Luc # (Auto) 0.03; Luc % (Auto) 0; Lymphocytes # (A) 0.3 k/uL (1.0-4.8); Lymphocytes % (A) 3 %; MCH 28.3 pg (25.0-35.0); MCHC 29.4 g/dL (31.0-37.0); MCV 96.3 fL (80.0-100.0); Mean Platelet Volume 7.2; Monocytes # (A) 0.2 k/uL (0-1.0); Monocytes % (A) 1 %; Neutrophils # (A) 10.7 k/uL (1.3-7.7); Neutrophils % (A) 95 %; RBC 2.86 m/uL (3.80-5.40); RDW 14.9 % (11.5-15.5); WBC 11.2 k/uL (3.8-10.6); WBC (Perox) 11.77
[2016-12-13 05:11] LABS: Blood Urea Nitrogen 37 mg/dL (7-17); Calcium 9.3 mg/dL (8.4-10.2); Chloride 91 mmol/L (98-107); Glucose 121 mg/dL (74-99); Magnesium 2.1 mg/dL (1.6-2.3); Non-African American GFR(MDRD) >60 (>60 ml/min/1.73 sqM); Phosphorous 3.1 mg/dL (2.5-4.5); Potassium 5.1 mmol/L (3.5-5.1); Sodium 134 mmol/L (137-145)
[2016-12-13 05:17] LABS: Anion Gap 3 mmol/L
[2016-12-13 05:25] LABS: Carbon Dioxide 40 mmol/L (22-30)
[2016-12-13] MEDS: methylPREDNISolone SOD SUCCI 125 MG/2 ML VIAL IV SCH ×3 (05:39→18:28)
--- NOTE | 2016-12-13 07:13 | XR ---
EXAMINATION TYPE: XR chest 1V DATE OF EXAM: 12/13/2016 6:36 AM COMPARISON: 12/12/2016 HISTORY: 76 year-old female shortness of breath TECHNIQUE: Single frontal view of the chest is obtained. FINDINGS: Heart normal size. Redemonstrated postsurgical changes on both sides with upward hilar retraction and upper lung volume loss with pleural parenchymal scarring. Masslike opacity peripheral right upper lo be is unchanged and given chronicity, probably relates to additional masslike scar. No new consolidat ion or pleural effusion. Hyperinflation with interstitial prominence compatible with underlying COPD. IMPRESSION: Stable exam without acute process seen.
[2016-12-13 09:18] LABS: Glucose,Whole Blood 146 mg/dL (75-99)
[2016-12-13] MEDS: INSULIN LISPRO (humaLOG) 300 UNIT/3 ML VIAL SQ SCH ×4 (09:21→21:35)
[2016-12-13] MEDS: LISINOPRIL 10 MG TAB PO SCH ×3 (09:24→21:37)
[2016-12-13] MEDS: THEOPHYLLINE 24 HOUR 200 MG CAP.ER.24H PO SCH ×2 (09:24→20:28)
[2016-12-13] MEDS: APIXABAN 2.5 MG TABLET PO SCH ×2 (09:24→20:27)
[2016-12-13] MEDS: FAMOTIDINE 20 MG TAB PO SCH (09:24)
[2016-12-13] MEDS: METOPROLOL TARTRATE 50 MG TAB PO SCH ×3 (09:24→21:36)
[2016-12-13] MEDS: amLODIPine 5 MG TAB PO SCH (09:24)
--- NOTE | 2016-12-13 12:16 | P.PN ---
Subjective On December 05, Patient is a 76-year-old male, patient of mine, with medical history significant for lung cancer with resection 2, COPD, chronic hypoxic respiratory failure on home O2, GI stromal cancer, atrial fibrillation, and hypertension, admitted through the emergency department via EMS with complaints of increased shortness of breath and chest pressure ongoing for approximately 3 days. Patient recently finished a course of antibiotics for urinary tract infection. No history of fevers, chills, sweats, nausea, vomiting , or abdominal pain. No urinary urgency, dysuria, hematuria. No history of constipation or diarrhea. EKG on admission with evidence of ruben sinus rhythm with incomplete right bundle branch block with no definite acute ischemia. Chest x-ray with evidence of lung carcinoma, cardiomegaly, and COPD. Echocardiogram with evidence of preserved left ventricular systolic function with an EF between 55-60%; moderate aortic valve sclerosis; moderate to severe tricuspid regurgitation; and moderate to severe pulmonary hypertension. Patient 's blood pressure was elevated at 190/94 in the emergency department. Troponins less than 0.0122, NT proBNP elevated at 3790. Patient was admitted into selective care unit with consult requested for pulmonary service and cardiology service. sHe spent several days on selective. Her Solu-Medrol was slowly weaned. She had difficulties with the updrafts that she seemed to be more short of breath similar to a paradoxical response, after treatments. She had hypercapnia and confusion and was transferred to intensive care unit on December 08 Patient remains In the ICU since. Her daughter is at bedside and we discussed her case. She has tried to eat a little bit more of the protein supplement shakes. She is requiring BiPAP intermittently home however they're planning on weaning it to 2 L oxygen via nasal cannula this time. She has been refusing certain treatments and medications, today. Status appears minimally improved today. Objective - Vital Signs Vital signs: Vital Signs Temp 98.2 F 12/13/16 08:00 Pulse 78 12/13/16 11:10 Resp 28 H 12/13/16 10:00 BP 134/62 12/13/16 10:00 Pulse Ox 96 12/13/16 11:11 Intake & Output 12/12/16 12/13/16 12/13/16 18:59 06:59 18:59 Intake Total 600 550 200 Output Total 545 520 220 Balance 55 30 -20 Weight 48.5 kg Intake: Intake, IV Titration 600 550 200 Amount Dextrose 5%-0.45% NaCl 1, 600 550 200 000 ml @ 50 mls/hr IV . Q20H [facility] Rx#:[id number] Output: Urine 545 520 220 Other: Voiding Method Indwelling Catheter Indwelling Catheter Indwelling Catheter # Bowel Movements 0 0 - Exam GENERAL: Pt is awake, frail looking, thin, Bipap Is currently off NECK:Normal range of motion, supple without lymphadenopathy or JVD. LUNGS: Breath sounds diminished to auscultation bilaterally. No wheezes, rales , or rhonchi could be auscultated due to the poor air exchange, mild improvement from 1 day ago HEART: Heart S1, S2, no S3 or S4. Regular rate and rhythm. Systolic murmur.Cardiac Ectopic noted. ABDOMEN: Soft, nontender, nondistended, somewhat decreased bowel sounds. No guarding, no rebound. No masses or organomegaly appreciated. EXTREMITIES: Palpable peripheral pulses. Trace edema to bilateral lower extremities. No calf tenderness. NEUROLOGICAL: Pt orientation To self and location. PSYCH: slow to respond to questions SKIN: Warm, dry, intact. No rashes or lesions. - Labs CBC & Chem 7: 12/13/16 04:08 12/13/16 04:08 Labs: Abnormal Lab Results - Last 24 Hours (Table) 12/12/16 12/12/16 12/12/16 Range/Units 11:28 13:00 18:09 WBC (3.8-10.6) k/uL RBC (3.80-5.40) m/uL Hgb (11.4-16.0) gm/dL Hct (34.0-46.0) % MCHC (31.0-37.0) g/dL Neutrophils # (1.3-7.7) k/uL Lymphocytes # (1.0-4.8) k/uL ABG pCO2 60 H (35-45) mmHg ABG pO2 72 L (83-108) mmHg ABG HCO3 40 H* (21-25) mmol/L ABG Total CO2 41 H (19-24) mmol/L Sodium (137-145) mmol/L Chloride (98-107) mmol/L Carbon Dioxide (22-30) mmol/L BUN (7-17) mg/dL Glucose (74-99) mg/dL POC Glucose (mg/dL) 129 H 133 H (75-99) mg/dL 12/12/16 12/13/16 12/13/16 Range/Units 21:50 04:08 04:08 WBC 11.2 H (3.8-10.6) k/uL RBC 2.86 L (3.80-5.40) m/uL Hgb 8.1 L (11.4-16.0) gm/dL Hct 27.5 L (34.0-46.0) % MCHC 29.4 L (31.0-37.0) g/dL Neutrophils # 10.7 H (1.3-7.7) k/uL Lymphocytes # 0.3 L (1.0-4.8) k/uL ABG pCO2 (35-45) mmHg ABG pO2 (83-108) mmHg ABG HCO3 (21-25) mmol/L ABG Total CO2 (19-24) mmol/L Sodium 134 L (137-145) mmol/L Chloride 91 L (98-107) mmol/L Carbon Dioxide 40 H* (22-30) mmol/L BUN 37 H (7-17) mg/dL Glucose 121 H (74-99) mg/dL POC Glucose (mg/dL) 188 H (75-99) mg/dL 12/13/16 Range/Units 09:15 WBC (3.8-10.6) k/uL RBC (3.80-5.40) m/uL Hgb (11.4-16.0) gm/dL Hct (34.0-46.0) % MCHC (31.0-37.0) g/dL Neutrophils # (1.3-7.7) k/uL Lymphocytes # (1.0-4.8) k/uL ABG pCO2 (35-45) mmHg ABG pO2 (83-108) mmHg ABG HCO3 (21-25) mmol/L ABG Total CO2 (19-24) mmol/L Sodium (137-145) mmol/L Chloride (98-107) mmol/L Carbon Dioxide (22-30) mmol/L BUN (7-17) mg/dL Glucose (74-99) mg/dL POC Glucose (mg/dL) 146 H (75-99) mg/dL Assessment and Plan Plan: 1. Acute on chronic hypercapnic Respiratory failure: She continues under pulmonology/critical care watchful eye, she continues on Atrovent [facility] Solu- Medrol, when necessary Humalog and theophylline 2. Paroxysmal atrial fibrillation: Continue Elequis, aspirin, lisinopril, metoprolol, amlodipine 3. Hypertension: blood pressures currently controlled 4. Anemia of chronic disease: We'll monitor hemoglobin 8.1 today 5. Chronic diastolic congestive heart failure.: Cardiology following, patient continues on oral Lasix, metoprolol, lisinopril, amlodipine 6. Anxiety and depression: Currently on Remeron and Klonopin when necessary 7. Severe pulmonary hypertension: Cardiology and pulmonology following. 8. 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 History of lung cancer, non-small cell carcinoma status post right middle lobe resection and, right upper lobe lesion: Stable 10. History of remote nicotine dependence. 11. GI prophylaxis: She'll continue on famotidine 12. DVT prophylaxis: She remains on Elequis 13. Medical debility: Physical therapy to evaluate. 14. Mild Acute renal failure/Renal insufficiency: Resolved, continue to monitor 15. Hyperkalemia: Mild, she remains on Lasix , now down to 5.1 Wait further recommendations from critical care, continue care, will recheck 1 day
[2016-12-13 13:50] LABS: Glucose,Whole Blood 130 mg/dL (75-99)
[2016-12-13] MEDS: MULTIVITAMINS, THERA 1 EACH TAB PO SCH (13:50)
[2016-12-13] MEDS: CHOLECALCIFEROL 1,000 UNIT TAB PO SCH (13:50)
--- NOTE | 2016-12-13 15:45 | P.PN ---
Subjective Patient is a 76-year-old male, patient of Dr. Thomas in the outpatient setting, with medical history significant for lung cancer with resection, COPD, chronic hypoxic respiratory failure on home O2, atrial fibrillation, and hypertension, admitted through the emergency department via EMS with complaints of increased shortness of breath and chest pressure ongoing for approximately 3 days. Patient recently finished a course of antibiotics for urinary tract infection. No history of fevers, chills, sweats, nausea, vomiting , or abdominal pain. No urinary urgency, dysuria, hematuria. No history of constipation or diarrhea. EKG on admission with evidence of ruben sinus rhythm with incomplete right bundle branch block with no definite acute ischemia. Chest x-ray with evidence of lung carcinoma, cardiomegaly, and COPD. Echocardiogram with evidence of preserved left ventricular systolic function with an EF between 55-60%; moderate aortic valve sclerosis; moderate to severe tricuspid regurgitation; and moderate to severe pulmonary hypertension. Patient 's blood pressure was elevated at 190/94 in the emergency department. Troponins less than 0.0122, NT proBNP elevated at 3790. Patient was admitted into selective care unit will consult requested for pulmonary service and cardiology service. On 12/07/2016 the patient is being seen in follow-up. She is less short of breath. She has experienced some side effects of the treatment including some occasional palpitation. I have opted to wean this patient off the steroids knowing that she is already improving and her breathing is improved and she is less short of breath. I'm also going to discontinue the Perforomist based on her reported symptoms of palpitation. She has no chest pain. She is quite weak. Appetite is also diminished. She is very much debilitated due to her advanced COPD and chronic hypoxic respiratory failure. X-ray shows no acute changes On 12/08/2016, was asked to give this patient immediately as the patient was found to be more lethargic and unresponsive. The daughter was at the bedside. She told me that since early this morning the patient was less responsive and interactive. Over the past 20-30 minutes the patient became even more obtunded. Upon my evaluation, the patient had very shallow breathing and she was also having prolongation of the expiratory phase of breathing and scattered expiratory wheezes. She denies having any aspiration. She was being given clonazepam 0.25 mg 4 times a day. No reported chest pain. No swelling in lower extremities. The patient on long-term anticoagulation and the possibility of pulmonary embolism is less likely. At that point her blood gases obtained and the patient was found to have a acute on top of her on it hypercapnic respiratory failure and the pH was at 7.3 with a pCO2 of 76, and the pO2 was 100. At that point, the patient was started on a BiPAP at a pressure of 14/6 cm of water to initiated tidal volume of around 350. She became more interactive. She got transferred to the intensive care unit. I was able to wake up this patient with frequent stimulation. She would open up her eyes. She would follow-up some simple commands and she was able to move all 4 extremities. Stroke is felt to be less likely. It is likely a respiratory failure with CO2 narcosis. Chest x-ray was ordered. Blood work was also ordered. The patient has been diuresed adequately and I think she is in prerenal state. Her CODE STATUS is DO NOT RESUSCITATE DO NOT INTUBATE. On 12/09/2016 the patient is being seen in follow-up. As mentioned, the patient got moved to the intensive care unit because of diminished level of consciousness and acute on top of chronic hypercapnic the story failure. She was started on BiPAP and her breathing was supported adequately. This morning she is off the BiPAP. She is awake and alert and following commands and answering questions appropriately. She has become very difficult to deal with knowing that the patient dictates the treatment and the medication that she should receive or not to receive. She has declined the BiPAP. She has declined the antibiotics. She is also declining the Xopenex tablets treatments. At times her request are quite unreasonable and they will essentially adversely affect her health condition in general. This was explained at length to her. I spent approximately 25-30 minutes counseling her and her daughter at the bedside on the importance of various bronchodilators and systemic steroids. The patient is quite debilitated. His COPD is end- stage. She also has history of non-small cell lung cancer and the details were mentioned earlier. I'm going to keep the Lasix on hold. I'm going to gently hydrate this patient knowing that she her BUN and creatinine was somewhat elevated compared to her baseline and this is probably related to intravascular volume depletion/dehydration. She is improved from the pulmonary standpoint although she cannot still completed. She has to make stops while talking. No significant rest or secretions. Cough is minimal. Always anxious. Refusing to eat. On 12/10/2016, the patient is being seen in follow-up. The events that occurred overnight was noted. After being on a BiPAP throughout the afternoon yesterday the patient regained her mentation and she woke up last and she was able to communicate with her family and she stayed up between 10 PM and 4 AM this morning. Following that she became progressively more lethargic and obtunded and around 8 to 9:00 this morning the patient became quite lethargic and her mentation was very much diminished. At that point she was placed back on BiPAP and currently she is on a BiPAP pressure of 60 over 4 cm of water. Her saturation is remains above 90%. The blood gases was done while in the BiPAP shows significant respiratory acidosis with a pH of 7.25 and pO2 of 92. The chest x-ray shows advanced COPD. No airspace disease or pulmonary infiltrates or pneumonia. There is a right upper lobe opacities was seen on previous chest x-rays. The patient is very much cachectic with limited pulmonary reserve and very poor nutritional status. Hemodynamically she is doing well. She has an adequate urine output. She is on half-normal seen today to 50 mL an hour. She is in a combination of Pulmicort Respules, Xopenex and Atrovent about treatments around the clock every 4 hours and IV Solu- Medrol. There is a concern that Xopenex is causing paradoxic bronchospasm and this lasts will be discontinued. On 12/11/2016, the patient is being seen in follow-up. The patient again recovered from hypercapnia and she regained back her mentation. She is awake and following commands and answering questions. I also heard that she ate a sandwich this morning. She is still using the BiPAP on and off during the day. She is quite weak and cachectic. She has however alert and conversing. She seems to be also appropriate. As mentioned earlier, I discontinued the Xopenex. The patient be kept on a combination of Pulmicort Respules and Atrovent about she moves around the clock and the patient will be kept on IV Solu-Medrol. Hemodynamically stable. Chest x-ray continues to be stable without any acute abnormalities. On 12/12/2016 I'm seeing this patient in follow-up. For the most part she is doing okay. On and off she still utilizing the BiPAP. This morning I took her off the BiPAP and admitted dropped her down to 2 L of oxygen nasal cannula. She was awake and she was able to converse and she was alert and she was appropriate. She is still on the same breast 20 medications. She did have a small amount of breakfast this morning. She is still hanging in there and that has been no deterioration in her condition. I feel like her COPD this stage but she is still not to the point where the family nor the patient already with comfort measures and hospice.. My plan is to continue with ongoing treatment and see if there is any role for some more improvement. I will consider the addition of theophylline today in addition. Chest x-ray is unchanged. On 12/13/2016, I'm not seeing much of an improvement or if it changes the patient's condition. The patient is showing no major signs of improvement. I took her off the BiPAP yesterday and I performed a blood gas which showed compensated hypercapnia. Subsequently the patient became more tired and she had to be placed back on the BiPAP. As such she is requiring the BiPAP frequently on and off during the day. She is getting progressively more weak. She is not sure whether she wants to continue this all of the family still thinking that there may be some hope for her. We'll continue the treatment and I'm thinking the patient's condition is gradually getting worse and the prognosis will be obviously worse as long as the patient's condition remains unchanged over the next few days. She denies having any chest pain. Anxiety levels are sometimes high and for that reason the patient is being given as needed clonazepam a low dose. No fever. No chills. No night sweats. No other complaints otherwise for now. Oral intake remains minimal and the patient is not meeting her caloric requirements still. Objective - Vital Signs Vital signs: Vital Signs Temp 98.3 F 12/13/16 12:00 Pulse 82 12/13/16 14:00 Resp 36 H 12/13/16 14:00 BP 115/64 12/13/16 14:00 Pulse Ox 97 12/13/16 14:00 Intake & Output 12/12/16 12/13/16 12/13/16 18:59 06:59 18:59 Intake Total 600 550 400 Output Total 545 520 370 Balance 55 30 30 Weight 48.5 kg Intake: Intake, IV Titration 600 550 400 Amount Dextrose 5%-0.45% NaCl 1, 600 550 400 000 ml @ 50 mls/hr IV . Q20H [facility] Rx#:[id number] Output: Urine 545 520 370 Other: Voiding Method Indwelling Catheter Indwelling Catheter Indwelling Catheter # Bowel Movements 0 0 - Exam Cachectic and thin elderly female patient mild degree of respiratory distress. Diminished mental status and the patient has encephalopathy secondary to underlying hypercapnia.. She has advanced lung disease/end-stage. She is not using it is a muscle breathing. She is on the BiPAP this morning. She is very thin and she has significant loss and total body protein mass.Head exam was generally normal. There was no scleral icterus or corneal arcus. Mucous membranes were moist. Neck is supple there is some mucous membrane dryness. No thrush. Lungs sounds are markedly diminished along with some progress next phase of breathing and scattered external wheezes heard throughout the lung avila bilaterally.Cardiac exam revealed the PMI to be normally situated and sized. The rhythm was regular and no extrasystoles were noted during several minutes of auscultation. The first and second heart sounds were normal and physiologic splitting of the second heart sound was noted. There were no murmurs , rubs, clicks, or gallops.Abdominal exam revealed normal bowel sounds. The abdomen was soft, non-tender, and without masses, organomegaly, or appreciable enlargement of the abdominal aorta. Extremities are showing severely atrophied muscles both in the upper and lower extremities. No cyanosis or clubbing at this point. - Labs CBC & Chem 7: 12/13/16 04:08 12/13/16 04:08 Labs: Abnormal Lab Results - Last 24 Hours (Table) 12/12/16 12/12/16 12/13/16 Range/Units 18:09 21:50 04:08 WBC 11.2 H (3.8-10.6) k/uL RBC 2.86 L (3.80-5.40) m/uL Hgb 8.1 L (11.4-16.0) gm/dL Hct 27.5 L (34.0-46.0) % MCHC 29.4 L (31.0-37.0) g/dL Neutrophils # 10.7 H (1.3-7.7) k/uL Lymphocytes # 0.3 L (1.0-4.8) k/uL Sodium (137-145) mmol/L Chloride (98-107) mmol/L Carbon Dioxide (22-30) mmol/L BUN (7-17) mg/dL Glucose (74-99) mg/dL POC Glucose (mg/dL) 133 H 188 H (75-99) mg/dL 12/13/16 12/13/16 12/13/16 Range/Units 04:08 09:15 13:49 WBC (3.8-10.6) k/uL RBC (3.80-5.40) m/uL Hgb (11.4-16.0) gm/dL Hct (34.0-46.0) % MCHC (31.0-37.0) g/dL Neutrophils # (1.3-7.7) k/uL Lymphocytes # (1.0-4.8) k/uL Sodium 134 L (137-145) mmol/L Chloride 91 L (98-107) mmol/L Carbon Dioxide 40 H* (22-30) mmol/L BUN 37 H (7-17) mg/dL Glucose 121 H (74-99) mg/dL POC Glucose (mg/dL) 146 H 130 H (75-99) mg/dL Assessment and Plan Plan: Assessment 1 advanced COPD with acute exacerbation secondary shortness of breath On 12/08/2016 the patient was seen on the telemetry unit. She was having significant diminishment in her mental status. Her breathing seemed to be much more labored and she had marked diminished breath sounds bilaterally with prolongation of the expiratory phase of breathing. Immediate blood gases showed a component of an acute on top of chronic hypercapnic respiratory failure. The patient has a component of CO2 narcosis. She was placed on a BiPAP and she got moved to the intensive care unit. Further workup is pending. On 12/09/2016 the patient got moved to the intensive care unit. Overnight she gets support of the BiPAP systemic steroids and bronchodilators. I came to realize that the patient refused her Xopenex and this medication was placed on hold and the patient was not receiving it. This could've contributed to her respiratory failure knowing that the patient's COPD is very borderline and her diseases and stage. No aspiration of the chest x-ray remains clear. No signs of fluid overload effect the patient is intravascularly volume depleted. Doubt pulmonary embolism lung that the patient is on long-term anticoagulation. Klonopin causing restlessness suppression is less likely knowing that the patient has been maintenance medication for an extended period of time. She is refusing BiPAP for now. She has also refused systemic steroids and various inhalers however I insist to continue with the treatment as long as the patient is in the intensive care unit and had a lengthy discussion with her in this regard. On 12/10/2016, The patient is having recurrent episodes of hypercapnic the story failure. The exact cause is not clear. One part is that the patient is having some paradoxic reactions to Xopenex although this is much less likely. I think she has limited pulmonary reserve and she has respiratory fatigue which is causing further hypoventilation and hypercapnia. On her chest x-ray there is no signs of pneumonia fluid overload and atelectasis or aspiration. As such I think there is no other exacerbating factor including the potential of medication-induced hypoventilation as the patient was taken off clonazepam On 12/11/2016, the patient is slightly improved. She is was taken off the BiPAP this morning and she seems to much more alert and awake. She has however very weak and has limited reserve and she gets short of breath with minimal amount of activity. On examination air entry is improved bilaterally although the patient's breath sounds remain markedly diminished. I think she is an end- stage lung disease and she develops respiratory muscle fatigue and this was subsequently cause her to have CO2 narcosis and altered mentation. She is still being supported with BiPAP on and off during the day. On 12/12/2016 the patient continues to be on the same treatment. Awake and alert this morning. She is on 1 L of oxygen by nasal cannula about gases will be obtained to assess her acid base status. Theophylline will be also added. Chest x-ray remains unchanged. On 12/13/2016, no major improvement in the patient's condition essentially stable with very much dependence hours BiPAP. Taken the patient off the BiPAP will cause respiratory fatigue and respiratory failure. I'm unable to take her off the BiPAP for prolonged period of time. As such she seems to be much more dependent to the noninvasive partial pressure ventilation. 2 chronic hypoxic respiratory failure due to advanced COPD. The patient has had previous hospitalization for COPD exacerbation and last was approximately 6 months ago 3 non-small cell lung cancer with a previous right middle lobe resection and subsequent wedge resection of the right upper lobe lesion followed by radiation therapy/[employer]ber[employer] therapy to a lung nodule and 4 esophageal cancer with previous esophagectomy transhiatal 5 cachexia and weight loss 6 chronic atrial fibrillation 7 hypertension 8 hyperlipidemia 9 chronic malnourishment 10 chronic anemia. 11. Azotemia/acute kidney injury secondary to diuresis Plan We'll continue same treatment. Long-term prognosis poor. Keep the BiPAP on and off during the day and this will be used intermittently. Monitor mental status. Continue the bronchodilators. Continue systemic steroids. Add theophylline 200 mg by mouth twice a day. I again discussed the case with the family. The family and the patient may ultimately come to the realization that the patient's COPD is advanced and end- stage and there is a decent chest that she may not recover from this whole experience. We'll continue to follow. We'll keep the patient in ICU. Prognosis obviously poor.
[2016-12-13 18:24] LABS: Glucose,Whole Blood 165 mg/dL (75-99)
[2016-12-13 20:27] LABS: Glucose,Whole Blood 114 mg/dL (75-99)
[2016-12-13] MEDS: MIRTAZAPINE 15 MG TAB PO SCH (20:27)
[2016-12-13] MEDS: DEXTROSE 5%-0.45% NACL 1,000 ML IV SCH (20:28)
[2016-12-14] MEDS: methylPREDNISolone SOD SUCCI 125 MG/2 ML VIAL IV SCH ×5 (00:15→23:16)
[2016-12-14] MEDS: IPRATROPIUM 0.5 MG/2.5 ML NEBU INHALATION SCH ×5 (03:50→20:55)
[2016-12-14 06:02] LABS: CH 27.7; CHCM 28.6; HCT 29.1 % (34.0-46.0); HDW 2.98; Hypochromasia Marked; MCH 29.8 pg (25.0-35.0); MCHC 30.8 g/dL (31.0-37.0); MCV 96.8 fL (80.0-100.0); RBC 3.01 m/uL (3.80-5.40); RDW 14.8 % (11.5-15.5); WBC 10.5 k/uL (3.8-10.6)
[2016-12-14 06:19] LABS: Anion Gap 8 mmol/L; Blood Urea Nitrogen 36 mg/dL (7-17); Calcium 9.4 mg/dL (8.4-10.2); Carbon Dioxide 36 mmol/L (22-30); Chloride 94 mmol/L (98-107); Glucose 124 mg/dL (74-99); Magnesium 2.1 mg/dL (1.6-2.3); Non-African American GFR(MDRD) >60 (>60 ml/min/1.73 sqM); Phosphorous 3.7 mg/dL (2.5-4.5); Sodium 138 mmol/L (137-145)
--- NOTE | 2016-12-14 07:11 | XR ---
EXAMINATION TYPE: XR chest 1V portable DATE OF EXAM: 12/14/2016 6:45 AM Comparison: 12/13/2016 Clinical History: 76-year-old female with shortness of breath. Findings: The heart is is normal size. Postsurgical changes medial right upper lung and left hilum with upward hilar retraction and upper lung volume loss with pleural parenchymal opacities. Similar elevation of the left hemidiaphragm, hyperinflation, mild interstitial prominence, and masslike opacity peripheral right upper lobe. Dextroconvex scoliosis. Impression: COPD with chronic parenchymal and postsurgical changes. No acute change seen.
[2016-12-14 07:21] LABS: Glucose,Whole Blood 131 mg/dL (75-99)
[2016-12-14] MEDS: INSULIN LISPRO (humaLOG) 300 UNIT/3 ML VIAL SQ SCH ×4 (07:50→22:05)
[2016-12-14] MEDS: APIXABAN 2.5 MG TABLET PO SCH ×2 (07:51→20:13)
[2016-12-14] MEDS: FAMOTIDINE 20 MG TAB PO SCH (07:51)
[2016-12-14] MEDS: LISINOPRIL 10 MG TAB PO SCH ×3 (07:51→22:06)
[2016-12-14] MEDS: METOPROLOL TARTRATE 50 MG TAB PO SCH ×3 (07:51→20:13)
[2016-12-14] MEDS: amLODIPine 5 MG TAB PO SCH ×2 (07:51→20:12)
[2016-12-14] MEDS: THEOPHYLLINE 24 HOUR 200 MG CAP.ER.24H PO SCH ×2 (07:52→20:13)
[2016-12-14 12:20] LABS: Glucose,Whole Blood 135 mg/dL (75-99)
[2016-12-14] MEDS: MULTIVITAMINS, THERA 1 EACH TAB PO SCH (12:21)
[2016-12-14] MEDS: CHOLECALCIFEROL 1,000 UNIT TAB PO SCH (12:21)
[2016-12-14] MEDS: ACETAMINOPHEN TAB 325 MG TAB PO PRN (12:46)
--- NOTE | 2016-12-14 13:31 | P.PN ---
Subjective On December 05, Patient is a 76-year-old male, patient of mine, with medical history significant for lung cancer with resection 2, COPD, chronic hypoxic respiratory failure on home O2, GI stromal cancer, atrial fibrillation, and hypertension, admitted through the emergency department via EMS with complaints of increased shortness of breath and chest pressure ongoing for approximately 3 days. Patient recently finished a course of antibiotics for urinary tract infection. No history of fevers, chills, sweats, nausea, vomiting , or abdominal pain. No urinary urgency, dysuria, hematuria. No history of constipation or diarrhea. EKG on admission with evidence of ruben sinus rhythm with incomplete right bundle branch block with no definite acute ischemia. Chest x-ray with evidence of lung carcinoma, cardiomegaly, and COPD. Echocardiogram with evidence of preserved left ventricular systolic function with an EF between 55-60%; moderate aortic valve sclerosis; moderate to severe tricuspid regurgitation; and moderate to severe pulmonary hypertension. Patient 's blood pressure was elevated at 190/94 in the emergency department. Troponins less than 0.0122, NT proBNP elevated at 3790. Patient was admitted into selective care unit with consult requested for pulmonary service and cardiology service. sHe spent several days on selective. Her Solu-Medrol was slowly weaned. She had difficulties with the updrafts that she seemed to be more short of breath similar to a paradoxical response, after treatments. She had hypercapnia and confusion and was transferred to intensive care unit on December 08 Patient remains In the ICU since. Her daughter is at bedside and we discussed her case. She had Bipap overnight only and is doing better. She has been cleared for transfer to Stepdown. Objective - Vital Signs Vital signs: Vital Signs Temp 98.0 F 12/14/16 08:00 Pulse 90 12/14/16 13:00 Resp 32 H 12/14/16 13:00 BP 114/75 12/14/16 13:00 Pulse Ox 98 12/14/16 13:00 Intake & Output 12/13/16 12/14/16 12/14/16 18:59 06:59 18:59 Intake Total 600 600 200 Output Total 563 633 500 Balance 37 -33 -300 Weight 44 kg 44 kg Intake: Intake, IV Titration 600 600 200 Amount Dextrose 5%-0.45% NaCl 1, 600 600 200 000 ml @ 50 mls/hr IV . Q20H [facility] Rx#:[id number] Output: Urine 563 633 500 Other: Voiding Method Indwelling Catheter Indwelling Catheter Indwelling Catheter # Voids 1 - Exam GENERAL: Pt is awake, frail looking, thin, Bipap Is currently off NECK:Normal range of motion, supple without lymphadenopathy or JVD. LUNGS: Breath sounds diminished to auscultation bilaterally. No wheezes, rales , or rhonchi could be auscultated due to the poor air exchange, stable HEART: Heart S1, S2, no S3 or S4. Regular rate and rhythm. Systolic murmur.Cardiac Ectopic noted. ABDOMEN: Soft, nontender, nondistended, somewhat decreased bowel sounds. No guarding, no rebound. No masses or organomegaly appreciated. EXTREMITIES: Palpable peripheral pulses. Trace edema to bilateral lower extremities. No calf tenderness. NEUROLOGICAL: Pt AAOx3 today PSYCH: slow to respond to questions SKIN: Warm, dry, intact. No rashes or lesions. - Labs CBC & Chem 7: 12/14/16 05:29 12/14/16 05:29 Labs: Abnormal Lab Results - Last 24 Hours (Table) 12/13/16 12/13/16 12/13/16 Range/Units 13:49 18:23 20:26 RBC (3.80-5.40) m/uL Hgb (11.4-16.0) gm/dL Hct (34.0-46.0) % MCHC (31.0-37.0) g/dL Chloride (98-107) mmol/L Carbon Dioxide (22-30) mmol/L BUN (7-17) mg/dL Glucose (74-99) mg/dL POC Glucose (mg/dL) 130 H 165 H 114 H (75-99) mg/dL 12/14/16 12/14/16 12/14/16 Range/Units 05:29 05:29 07:19 RBC 3.01 L (3.80-5.40) m/uL Hgb 9.0 L (11.4-16.0) gm/dL Hct 29.1 L (34.0-46.0) % MCHC 30.8 L (31.0-37.0) g/dL Chloride 94 L (98-107) mmol/L Carbon Dioxide 36 H (22-30) mmol/L BUN 36 H (7-17) mg/dL Glucose 124 H (74-99) mg/dL POC Glucose (mg/dL) 131 H (75-99) mg/dL 12/14/16 Range/Units 12:16 RBC (3.80-5.40) m/uL Hgb (11.4-16.0) gm/dL Hct (34.0-46.0) % MCHC (31.0-37.0) g/dL Chloride (98-107) mmol/L Carbon Dioxide (22-30) mmol/L BUN (7-17) mg/dL Glucose (74-99) mg/dL POC Glucose (mg/dL) 135 H (75-99) mg/dL Assessment and Plan Plan: 1. Acute on chronic hypercapnic Respiratory failure: She continues under pulmonology/critical care she continues on Atrovent updrafts Solu-Medrol, when necessary Humalog and theophylline, overall better, going to stepdown unit today 2. Paroxysmal atrial fibrillation: Continue Elequis, aspirin, lisinopril, metoprolol, amlodipine 3. Hypertension: blood pressures currently controlled 4. Anemia of chronic disease: We'll monitor hemoglobin 9.0 today 5. Chronic diastolic congestive heart failure.: Cardiology following, patient continues on oral Lasix, metoprolol, lisinopril, amlodipine 6. Anxiety and depression: Currently on Remeron and Klonopin when necessary 7. Severe pulmonary hypertension: Cardiology and pulmonology following. 8. 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 History of lung cancer, non-small cell carcinoma status post right middle lobe resection and, right upper lobe lesion: Stable 10. History of remote nicotine dependence. 11. GI prophylaxis: She'll continue on famotidine 12. DVT prophylaxis: She remains on Elequis 13. Medical debility: Physical therapy to evaluate. 14. Mild Acute renal failure/Renal insufficiency: Resolved, continue to monitor 15. Hyperkalemia: Mild, resolvving she remains on Lasix , now down to 5.0 16 protein calorie nutrition: encourage increased intake Wait further recommendations from critical care, continue care, will recheck 1 day
--- NOTE | 2016-12-14 14:21 | P.PN ---
Subjective Principal diagnosis: Acute hypoxic respiratory failure secondary to COPD exacerbation Patient is a 76-year-old male, patient of Dr. Thomas in the outpatient setting, with medical history significant for lung cancer with resection, COPD, chronic hypoxic respiratory failure on home O2, atrial fibrillation, and hypertension, admitted through the emergency department via EMS with complaints of increased shortness of breath and chest pressure ongoing for approximately 3 days. Patient recently finished a course of antibiotics for urinary tract infection. No history of fevers, chills, sweats, nausea, vomiting , or abdominal pain. No urinary urgency, dysuria, hematuria. No history of constipation or diarrhea. EKG on admission with evidence of ruben sinus rhythm with incomplete right bundle branch block with no definite acute ischemia. Chest x-ray with evidence of lung carcinoma, cardiomegaly, and COPD. Echocardiogram with evidence of preserved left ventricular systolic function with an EF between 55-60%; moderate aortic valve sclerosis; moderate to severe tricuspid regurgitation; and moderate to severe pulmonary hypertension. Patient 's blood pressure was elevated at 190/94 in the emergency department. Troponins less than 0.0122, NT proBNP elevated at 3790. Patient was admitted into selective care unit will consult requested for pulmonary service and cardiology service. On 12/07/2016 the patient is being seen in follow-up. She is less short of breath. She has experienced some side effects of the treatment including some occasional palpitation. I have opted to wean this patient off the steroids knowing that she is already improving and her breathing is improved and she is less short of breath. I'm also going to discontinue the Perforomist based on her reported symptoms of palpitation. She has no chest pain. She is quite weak. Appetite is also diminished. She is very much debilitated due to her advanced COPD and chronic hypoxic respiratory failure. X-ray shows no acute changes On 12/08/2016, was asked to give this patient immediately as the patient was found to be more lethargic and unresponsive. The daughter was at the bedside. She told me that since early this morning the patient was less responsive and interactive. Over the past 20-30 minutes the patient became even more obtunded. Upon my evaluation, the patient had very shallow breathing and she was also having prolongation of the expiratory phase of breathing and scattered expiratory wheezes. She denies having any aspiration. She was being given clonazepam 0.25 mg 4 times a day. No reported chest pain. No swelling in lower extremities. The patient on long-term anticoagulation and the possibility of pulmonary embolism is less likely. At that point her blood gases obtained and the patient was found to have a acute on top of her on it hypercapnic respiratory failure and the pH was at 7.3 with a pCO2 of 76, and the pO2 was 100. At that point, the patient was started on a BiPAP at a pressure of 14/6 cm of water to initiated tidal volume of around 350. She became more interactive. She got transferred to the intensive care unit. I was able to wake up this patient with frequent stimulation. She would open up her eyes. She would follow-up some simple commands and she was able to move all 4 extremities. Stroke is felt to be less likely. It is likely a respiratory failure with CO2 narcosis. Chest x-ray was ordered. Blood work was also ordered. The patient has been diuresed adequately and I think she is in prerenal state. Her CODE STATUS is DO NOT RESUSCITATE DO NOT INTUBATE. On 12/09/2016 the patient is being seen in follow-up. As mentioned, the patient got moved to the intensive care unit because of diminished level of consciousness and acute on top of chronic hypercapnic the story failure. She was started on BiPAP and her breathing was supported adequately. This morning she is off the BiPAP. She is awake and alert and following commands and answering questions appropriately. She has become very difficult to deal with knowing that the patient dictates the treatment and the medication that she should receive or not to receive. She has declined the BiPAP. She has declined the antibiotics. She is also declining the Xopenex tablets treatments. At times her request are quite unreasonable and they will essentially adversely affect her health condition in general. This was explained at length to her. I spent approximately 25-30 minutes counseling her and her daughter at the bedside on the importance of various bronchodilators and systemic steroids. The patient is quite debilitated. His COPD is end- stage. She also has history of non-small cell lung cancer and the details were mentioned earlier. I'm going to keep the Lasix on hold. I'm going to gently hydrate this patient knowing that she her BUN and creatinine was somewhat elevated compared to her baseline and this is probably related to intravascular volume depletion/dehydration. She is improved from the pulmonary standpoint although she cannot still completed. She has to make stops while talking. No significant rest or secretions. Cough is minimal. Always anxious. Refusing to eat. On 12/10/2016, the patient is being seen in follow-up. The events that occurred overnight was noted. After being on a BiPAP throughout the afternoon yesterday the patient regained her mentation and she woke up last and she was able to communicate with her family and she stayed up between 10 PM and 4 AM this morning. Following that she became progressively more lethargic and obtunded and around 8 to 9:00 this morning the patient became quite lethargic and her mentation was very much diminished. At that point she was placed back on BiPAP and currently she is on a BiPAP pressure of 60 over 4 cm of water. Her saturation is remains above 90%. The blood gases was done while in the BiPAP shows significant respiratory acidosis with a pH of 7.25 and pO2 of 92. The chest x-ray shows advanced COPD. No airspace disease or pulmonary infiltrates or pneumonia. There is a right upper lobe opacities was seen on previous chest x-rays. The patient is very much cachectic with limited pulmonary reserve and very poor nutritional status. Hemodynamically she is doing well. She has an adequate urine output. She is on half-normal seen today to 50 mL an hour. She is in a combination of Pulmicort Respules, Xopenex and Atrovent about treatments around the clock every 4 hours and IV Solu- Medrol. There is a concern that Xopenex is causing paradoxic bronchospasm and this lasts will be discontinued. On 12/11/2016, the patient is being seen in follow-up. The patient again recovered from hypercapnia and she regained back her mentation. She is awake and following commands and answering questions. I also heard that she ate a sandwich this morning. She is still using the BiPAP on and off during the day. She is quite weak and cachectic. She has however alert and conversing. She seems to be also appropriate. As mentioned earlier, I discontinued the Xopenex. The patient be kept on a combination of Pulmicort Respules and Atrovent about she moves around the clock and the patient will be kept on IV Solu-Medrol. Hemodynamically stable. Chest x-ray continues to be stable without any acute abnormalities. On 12/12/2016 I'm seeing this patient in follow-up. For the most part she is doing okay. On and off she still utilizing the BiPAP. This morning I took her off the BiPAP and admitted dropped her down to 2 L of oxygen nasal cannula. She was awake and she was able to converse and she was alert and she was appropriate. She is still on the same breast 20 medications. She did have a small amount of breakfast this morning. She is still hanging in there and that has been no deterioration in her condition. I feel like her COPD this stage but she is still not to the point where the family nor the patient already with comfort measures and hospice.. My plan is to continue with ongoing treatment and see if there is any role for some more improvement. I will consider the addition of theophylline today in addition. Chest x-ray is unchanged. On 12/13/2016, I'm not seeing much of an improvement or if it changes the patient's condition. The patient is showing no major signs of improvement. I took her off the BiPAP yesterday and I performed a blood gas which showed compensated hypercapnia. Subsequently the patient became more tired and she had to be placed back on the BiPAP. As such she is requiring the BiPAP frequently on and off during the day. She is getting progressively more weak. She is not sure whether she wants to continue this all of the family still thinking that there may be some hope for her. We'll continue the treatment and I'm thinking the patient's condition is gradually getting worse and the prognosis will be obviously worse as long as the patient's condition remains unchanged over the next few days. She denies having any chest pain. Anxiety levels are sometimes high and for that reason the patient is being given as needed clonazepam a low dose. No fever. No chills. No night sweats. No other complaints otherwise for now. Oral intake remains minimal and the patient is not meeting her caloric requirements still. On 12/14/2016, patient seems to be doing a bit better, breathing easier, she is presently on nasal cannula, off BiPAP. However intermittently has been using BiPAP. She was on it last night. But over the last few hours she has been on nasal cannula. Labs were reviewed and they seem to be relatively unremarkable. Chest x-ray showed COPD and chronic parenchymal and postsurgical changes as noted. I instructed the nurses taking care of the patient to consider transferring the patient to a regular medical floor today. Objective - Vital Signs Vital signs: Vital Signs Temp 98.0 F 12/14/16 08:00 Pulse 90 12/14/16 13:00 Resp 32 H 12/14/16 13:00 BP 114/75 12/14/16 13:00 Pulse Ox 98 12/14/16 13:00 Intake & Output 12/13/16 12/14/16 12/14/16 18:59 06:59 18:59 Intake Total 600 600 200 Output Total 563 633 500 Balance 37 -33 -300 Weight 44 kg 44 kg Intake: Intake, IV Titration 600 600 200 Amount Dextrose 5%-0.45% NaCl 1, 600 600 200 000 ml @ 50 mls/hr IV . Q20H [facility] Rx#:[id number] Output: Urine 563 633 500 Other: Voiding Method Indwelling Catheter Indwelling Catheter Indwelling Catheter # Voids 1 - Exam Cachectic and thin elderly female patient mild degree of respiratory distress. Diminished mental status and the patient has encephalopathy secondary to underlying hypercapnia.. She has advanced lung disease/end-stage. She is not using it is a muscle breathing. She is on the BiPAP this morning. She is very thin and she has significant loss and total body protein mass.Head exam was generally normal. There was no scleral icterus or corneal arcus. Mucous membranes were moist. Neck is supple there is some mucous membrane dryness. No thrush. Lungs sounds are markedly diminished along with some progress next phase of breathing and scattered external wheezes heard throughout the lung avila bilaterally.Cardiac exam revealed the PMI to be normally situated and sized. The rhythm was regular and no extrasystoles were noted during several minutes of auscultation. The first and second heart sounds were normal and physiologic splitting of the second heart sound was noted. There were no murmurs , rubs, clicks, or gallops.Abdominal exam revealed normal bowel sounds. The abdomen was soft, non-tender, and without masses, organomegaly, or appreciable enlargement of the abdominal aorta. Extremities are showing severely atrophied muscles both in the upper and lower extremities. No cyanosis or clubbing at this point. - Labs CBC & Chem 7: 12/14/16 05:29 12/14/16 05:29 Labs: Abnormal Lab Results - Last 24 Hours (Table) 0412/13/16 12/14/16 Range/Units 18:23 20:26 05:29 RBC 3.01 L (3.80-5.40) m/uL Hgb 9.0 L (11.4-16.0) gm/dL Hct 29.1 L (34.0-46.0) % MCHC 30.8 L (31.0-37.0) g/dL Chloride (98-107) mmol/L Carbon Dioxide (22-30) mmol/L BUN (7-17) mg/dL Glucose (74-99) mg/dL POC Glucose (mg/dL) 165 H 114 H (75-99) mg/dL 12/14/16 12/14/16 12/14/16 Range/Units 05:29 07:19 12:16 RBC (3.80-5.40) m/uL Hgb (11.4-16.0) gm/dL Hct (34.0-46.0) % MCHC (31.0-37.0) g/dL Chloride 94 L (98-107) mmol/L Carbon Dioxide 36 H (22-30) mmol/L BUN 36 H (7-17) mg/dL Glucose 124 H (74-99) mg/dL POC Glucose (mg/dL) 131 H 135 H (75-99) mg/dL Assessment and Plan Plan: 1 advanced COPD with acute exacerbation secondary shortness of breath On 12/08/2016 the patient was seen on the telemetry unit. She was having significant diminishment in her mental status. Her breathing seemed to be much more labored and she had marked diminished breath sounds bilaterally with prolongation of the expiratory phase of breathing. Immediate blood gases showed a component of an acute on top of chronic hypercapnic respiratory failure. The patient has a component of CO2 narcosis. She was placed on a BiPAP and she got moved to the intensive care unit. Further workup is pending. On 12/09/2016 the patient got moved to the intensive care unit. Overnight she gets support of the BiPAP systemic steroids and bronchodilators. I came to realize that the patient refused her Xopenex and this medication was placed on hold and the patient was not receiving it. This could've contributed to her respiratory failure knowing that the patient's COPD is very borderline and her diseases and stage. No aspiration of the chest x-ray remains clear. No signs of fluid overload effect the patient is intravascularly volume depleted. Doubt pulmonary embolism lung that the patient is on long-term anticoagulation. Klonopin causing restlessness suppression is less likely knowing that the patient has been maintenance medication for an extended period of time. She is refusing BiPAP for now. She has also refused systemic steroids and various inhalers however I insist to continue with the treatment as long as the patient is in the intensive care unit and had a lengthy discussion with her in this regard. On 12/10/2016, The patient is having recurrent episodes of hypercapnic the story failure. The exact cause is not clear. One part is that the patient is having some paradoxic reactions to Xopenex although this is much less likely. I think she has limited pulmonary reserve and she has respiratory fatigue which is causing further hypoventilation and hypercapnia. On her chest x-ray there is no signs of pneumonia fluid overload and atelectasis or aspiration. As such I think there is no other exacerbating factor including the potential of medication-induced hypoventilation as the patient was taken off clonazepam On 12/11/2016, the patient is slightly improved. She is was taken off the BiPAP this morning and she seems to much more alert and awake. She has however very weak and has limited reserve and she gets short of breath with minimal amount of activity. On examination air entry is improved bilaterally although the patient's breath sounds remain markedly diminished. I think she is an end- stage lung disease and she develops respiratory muscle fatigue and this was subsequently cause her to have CO2 narcosis and altered mentation. She is still being supported with BiPAP on and off during the day. On 12/12/2016 the patient continues to be on the same treatment. Awake and alert this morning. She is on 1 L of oxygen by nasal cannula about gases will be obtained to assess her acid base status. Theophylline will be also added. Chest x-ray remains unchanged. On 12/13/2016, no major improvement in the patient's condition essentially stable with very much dependence hours BiPAP. Taken the patient off the BiPAP will cause respiratory fatigue and respiratory failure. I'm unable to take her off the BiPAP for prolonged period of time. As such she seems to be much more dependent to the noninvasive partial pressure ventilation. On 12/14/2016, some improvement is noted, patient is tolerating nasal cannula, off BiPAP today, plan to transfer the patient to a regular medical floor, keeping in mind that BiPAP will remain at bedside. 2 chronic hypoxic respiratory failure due to advanced COPD. The patient has had previous hospitalization for COPD exacerbation and last was approximately 6 months ago 3 non-small cell lung cancer with a previous right middle lobe resection and subsequent wedge resection of the right upper lobe lesion followed by radiation therapy/CyberKnife therapy to a lung nodule and 4 esophageal cancer with previous esophagectomy transhiatal 5 cachexia and weight loss 6 chronic atrial fibrillation 7 hypertension 8 hyperlipidemia 9 chronic malnourishment 10 chronic anemia. 11. Azotemia/acute kidney injury secondary to diuresis Plan: Continue present treatment plan including bronchodilators, long-term prognosis is definitely poor and guarded, transfer out of the ICU today. We'll continue to follow. Time with Patient: Less than 30
[2016-12-14] MEDS ORDERED: clonazePAM 0.5 MG TAB PO PRN (15:02)
[2016-12-14] MEDS: DEXTROSE 5%-0.45% NACL 1,000 ML IV SCH ×2 (15:11→22:33)
[2016-12-14 17:17] LABS: Glucose,Whole Blood 164 mg/dL (75-99)
[2016-12-14] MEDS: cloNIDine HCL 0.1 MG TAB PO SCH (17:42)
[2016-12-14 17:44] LABS: Glucose,Whole Blood 164 mg/dL (75-99)
[2016-12-14] MEDS: MIRTAZAPINE 15 MG TAB PO SCH (20:11)
[2016-12-14 21:15] LABS: Glucose,Whole Blood 123 mg/dL (75-99)
[2016-12-15] MEDS: IPRATROPIUM 0.5 MG/2.5 ML NEBU INHALATION SCH ×9 (00:08→23:55)
[2016-12-15] MEDS: METOPROLOL TARTRATE 50 MG TAB PO SCH ×3 (05:04→21:32)
[2016-12-15 06:13] LABS: Glucose,Whole Blood 143 mg/dL (75-99)
[2016-12-15] MEDS: INSULIN LISPRO (humaLOG) 300 UNIT/3 ML VIAL SQ SCH ×4 (06:27→21:49)
[2016-12-15] MEDS: methylPREDNISolone SOD SUCCI 125 MG/2 ML VIAL IV SCH ×4 (06:27→23:48)
[2016-12-15 07:12] LABS: CH 27.8; CHCM 28.7; HCT 30.1 % (34.0-46.0); HDW 3.03; HGB 8.7 gm/dL (11.4-16.0); Hypochromasia Marked; MCH 28.1 pg (25.0-35.0); MCV 96.8 fL (80.0-100.0); Mean Platelet Volume 7.1; RBC 3.11 m/uL (3.80-5.40); RDW 14.8 % (11.5-15.5); WBC 11.4 k/uL (3.8-10.6)
[2016-12-15 07:31] LABS: Anion Gap 7 mmol/L; Blood Urea Nitrogen 33 mg/dL (7-17); Calcium 9.2 mg/dL (8.4-10.2); Chloride 91 mmol/L (98-107); Glucose 127 mg/dL (74-99); Non-African American GFR(MDRD) >60 (>60 ml/min/1.73 sqM); Phosphorous 3.5 mg/dL (2.5-4.5); Potassium 4.5 mmol/L (3.5-5.1); Sodium 138 mmol/L (137-145)
--- NOTE | 2016-12-15 07:39 | XR ---
EXAMINATION TYPE: XR chest 1V portable DATE OF EXAM: 12/15/2016 6:48 AM CLINICAL HISTORY: Difficulty breathing progress study. TECHNIQUE: Single AP portable upright view of the chest is obtained. COMPARISON: Chest x-ray from one day earlier. CT chest June 16, 2015 FINDINGS: There is chronic emphysematous change with right upper lung mass like scarring and elevate d left hemidiaphragm redemonstrated. Scattered parenchymal scarring is seen. There is no new suspicio us focal airspace opacity, pleural effusion, or pneumothorax present. Osseous structures are deminera lized. Underlying scoliosis is redemonstrated. Cardiac silhouette size is stable and within normal li mits with atherosclerotic thoracic aorta. Surgical clip above aortic knob is consistent with gastric pull-up procedure after esophagectomy. Left-sided volume loss is redemonstrated. Surgical clips epiga stric region are redemonstrated. Cholecystectomy clips are noted. IMPRESSION: Overall stable findings, chronic emphysematous change with right upper lung lateral mas slike scarring and scattered fibrosis, no acute pulmonary process is seen. No significant change from most recent chest x-ray noted.
[2016-12-15 07:47] LABS: Carbon Dioxide 40 mmol/L (22-30)
[2016-12-15] MEDS: FAMOTIDINE 20 MG TAB PO SCH (08:30)
[2016-12-15] MEDS: THEOPHYLLINE 24 HOUR 200 MG CAP.ER.24H PO SCH ×2 (08:30→21:32)
[2016-12-15] MEDS: LISINOPRIL 10 MG TAB PO SCH ×3 (08:30→21:32)
[2016-12-15] MEDS: amLODIPine 5 MG TAB PO SCH ×2 (08:31→21:32)
[2016-12-15] MEDS: APIXABAN 2.5 MG TABLET PO SCH ×2 (08:31→21:32)
[2016-12-15] MEDS: cloNIDine HCL 0.1 MG TAB PO SCH ×2 (08:31→21:32)
[2016-12-15] MEDS: CHOLECALCIFEROL 1,000 UNIT TAB PO SCH (08:32)
[2016-12-15] MEDS: MULTIVITAMINS, THERA 1 EACH TAB PO SCH (08:32)
[2016-12-15 11:58] LABS: Glucose,Whole Blood 118 mg/dL (75-99)
--- NOTE | 2016-12-15 12:06 | P.PN ---
Subjective Principal diagnosis: Acute hypoxic respiratory failure secondary to COPD exacerbation Patient is a 76-year-old male, patient of Dr. Thomas in the outpatient setting, with medical history significant for lung cancer with resection, COPD, chronic hypoxic respiratory failure on home O2, atrial fibrillation, and hypertension, admitted through the emergency department via EMS with complaints of increased shortness of breath and chest pressure ongoing for approximately 3 days. Patient recently finished a course of antibiotics for urinary tract infection. No history of fevers, chills, sweats, nausea, vomiting , or abdominal pain. No urinary urgency, dysuria, hematuria. No history of constipation or diarrhea. EKG on admission with evidence of ruben sinus rhythm with incomplete right bundle branch block with no definite acute ischemia. Chest x-ray with evidence of lung carcinoma, cardiomegaly, and COPD. Echocardiogram with evidence of preserved left ventricular systolic function with an EF between 55-60%; moderate aortic valve sclerosis; moderate to severe tricuspid regurgitation; and moderate to severe pulmonary hypertension. Patient 's blood pressure was elevated at 190/94 in the emergency department. Troponins less than 0.0122, NT proBNP elevated at 3790. Patient was admitted into selective care unit will consult requested for pulmonary service and cardiology service. On 12/07/2016 the patient is being seen in follow-up. She is less short of breath. She has experienced some side effects of the treatment including some occasional palpitation. I have opted to wean this patient off the steroids knowing that she is already improving and her breathing is improved and she is less short of breath. I'm also going to discontinue the Perforomist based on her reported symptoms of palpitation. She has no chest pain. She is quite weak. Appetite is also diminished. She is very much debilitated due to her advanced COPD and chronic hypoxic respiratory failure. X-ray shows no acute changes On 12/08/2016, was asked to give this patient immediately as the patient was found to be more lethargic and unresponsive. The daughter was at the bedside. She told me that since early this morning the patient was less responsive and interactive. Over the past 20-30 minutes the patient became even more obtunded. Upon my evaluation, the patient had very shallow breathing and she was also having prolongation of the expiratory phase of breathing and scattered expiratory wheezes. She denies having any aspiration. She was being given clonazepam 0.25 mg 4 times a day. No reported chest pain. No swelling in lower extremities. The patient on long-term anticoagulation and the possibility of pulmonary embolism is less likely. At that point her blood gases obtained and the patient was found to have a acute on top of her on it hypercapnic respiratory failure and the pH was at 7.3 with a pCO2 of 76, and the pO2 was 100. At that point, the patient was started on a BiPAP at a pressure of 14/6 cm of water to initiated tidal volume of around 350. She became more interactive. She got transferred to the intensive care unit. I was able to wake up this patient with frequent stimulation. She would open up her eyes. She would follow-up some simple commands and she was able to move all 4 extremities. Stroke is felt to be less likely. It is likely a respiratory failure with CO2 narcosis. Chest x-ray was ordered. Blood work was also ordered. The patient has been diuresed adequately and I think she is in prerenal state. Her CODE STATUS is DO NOT RESUSCITATE DO NOT INTUBATE. On 12/09/2016 the patient is being seen in follow-up. As mentioned, the patient got moved to the intensive care unit because of diminished level of consciousness and acute on top of chronic hypercapnic the story failure. She was started on BiPAP and her breathing was supported adequately. This morning she is off the BiPAP. She is awake and alert and following commands and answering questions appropriately. She has become very difficult to deal with knowing that the patient dictates the treatment and the medication that she should receive or not to receive. She has declined the BiPAP. She has declined the antibiotics. She is also declining the Xopenex tablets treatments. At times her request are quite unreasonable and they will essentially adversely affect her health condition in general. This was explained at length to her. I spent approximately 25-30 minutes counseling her and her daughter at the bedside on the importance of various bronchodilators and systemic steroids. The patient is quite debilitated. His COPD is end- stage. She also has history of non-small cell lung cancer and the details were mentioned earlier. I'm going to keep the Lasix on hold. I'm going to gently hydrate this patient knowing that she her BUN and creatinine was somewhat elevated compared to her baseline and this is probably related to intravascular volume depletion/dehydration. She is improved from the pulmonary standpoint although she cannot still completed. She has to make stops while talking. No significant rest or secretions. Cough is minimal. Always anxious. Refusing to eat. On 12/10/2016, the patient is being seen in follow-up. The events that occurred overnight was noted. After being on a BiPAP throughout the afternoon yesterday the patient regained her mentation and she woke up last and she was able to communicate with her family and she stayed up between 10 PM and 4 AM this morning. Following that she became progressively more lethargic and obtunded and around 8 to 9:00 this morning the patient became quite lethargic and her mentation was very much diminished. At that point she was placed back on BiPAP and currently she is on a BiPAP pressure of 60 over 4 cm of water. Her saturation is remains above 90%. The blood gases was done while in the BiPAP shows significant respiratory acidosis with a pH of 7.25 and pO2 of 92. The chest x-ray shows advanced COPD. No airspace disease or pulmonary infiltrates or pneumonia. There is a right upper lobe opacities was seen on previous chest x-rays. The patient is very much cachectic with limited pulmonary reserve and very poor nutritional status. Hemodynamically she is doing well. She has an adequate urine output. She is on half-normal seen today to 50 mL an hour. She is in a combination of Pulmicort Respules, Xopenex and Atrovent about treatments around the clock every 4 hours and IV Solu- Medrol. There is a concern that Xopenex is causing paradoxic bronchospasm and this lasts will be discontinued. On 12/11/2016, the patient is being seen in follow-up. The patient again recovered from hypercapnia and she regained back her mentation. She is awake and following commands and answering questions. I also heard that she ate a sandwich this morning. She is still using the BiPAP on and off during the day. She is quite weak and cachectic. She has however alert and conversing. She seems to be also appropriate. As mentioned earlier, I discontinued the Xopenex. The patient be kept on a combination of Pulmicort Respules and Atrovent about she moves around the clock and the patient will be kept on IV Solu-Medrol. Hemodynamically stable. Chest x-ray continues to be stable without any acute abnormalities. On 12/12/2016 I'm seeing this patient in follow-up. For the most part she is doing okay. On and off she still utilizing the BiPAP. This morning I took her off the BiPAP and admitted dropped her down to 2 L of oxygen nasal cannula. She was awake and she was able to converse and she was alert and she was appropriate. She is still on the same breast 20 medications. She did have a small amount of breakfast this morning. She is still hanging in there and that has been no deterioration in her condition. I feel like her COPD this stage but she is still not to the point where the family nor the patient already with comfort measures and hospice.. My plan is to continue with ongoing treatment and see if there is any role for some more improvement. I will consider the addition of theophylline today in addition. Chest x-ray is unchanged. On 12/13/2016, I'm not seeing much of an improvement or if it changes the patient's condition. The patient is showing no major signs of improvement. I took her off the BiPAP yesterday and I performed a blood gas which showed compensated hypercapnia. Subsequently the patient became more tired and she had to be placed back on the BiPAP. As such she is requiring the BiPAP frequently on and off during the day. She is getting progressively more weak. She is not sure whether she wants to continue this all of the family still thinking that there may be some hope for her. We'll continue the treatment and I'm thinking the patient's condition is gradually getting worse and the prognosis will be obviously worse as long as the patient's condition remains unchanged over the next few days. She denies having any chest pain. Anxiety levels are sometimes high and for that reason the patient is being given as needed clonazepam a low dose. No fever. No chills. No night sweats. No other complaints otherwise for now. Oral intake remains minimal and the patient is not meeting her caloric requirements still. On 12/14/2016, patient seems to be doing a bit better, breathing easier, she is presently on nasal cannula, off BiPAP. However intermittently has been using BiPAP. She was on it last night. But over the last few hours she has been on nasal cannula. Labs were reviewed and they seem to be relatively unremarkable. Chest x-ray showed COPD and chronic parenchymal and postsurgical changes as noted. I instructed the nurses taking care of the patient to consider transferring the patient to a regular medical floor today. On 12/15/2016, patient is about the same, still requires BiPAP intermittently. Continues to have diminished breath sounds bilaterally, and she is on off BiPAP. Intermittently.labs are reviewed, bicarb is 40 electrolytes are normal CBC is normal hemoglobin is 8.7. Objective - Vital Signs Vital signs: Vital Signs Temp 98.0 F 12/15/16 08:00 Pulse 93 12/15/16 11:25 Resp 36 H 12/15/16 11:25 BP 120/56 12/15/16 11:25 Pulse Ox 98 12/15/16 11:25 Intake & Output 12/14/16 12/15/16 12/15/16 18:59 06:59 18:59 Intake Total 400 500 400 Output Total 825 600 Balance -425 -100 400 Weight 44 kg 45.5 kg Intake: Intake, IV Titration 400 500 400 Amount Dextrose 5%-0.45% NaCl 1, 400 500 400 000 ml @ 50 mls/hr IV . Q20H [facility] Rx#:[id number] Output: Urine 825 600 Other: Voiding Method Indwelling Catheter Indwelling Catheter Indwelling Catheter # Voids 1 1 - Exam Cachectic and thin elderly female patient mild degree of respiratory distress. Diminished mental status and the patient has encephalopathy secondary to underlying hypercapnia.. She has advanced lung disease/end-stage. She is not using it is a muscle breathing. She is on the BiPAP this morning. She is very thin and she has significant loss and total body protein mass.Head exam was generally normal. There was no scleral icterus or corneal arcus. Mucous membranes were moist. Neck is supple there is some mucous membrane dryness. No thrush. Lungs sounds are markedly diminished along with some progress next phase of breathing and scattered external wheezes heard throughout the lung avila bilaterally.Cardiac exam revealed the PMI to be normally situated and sized. The rhythm was regular and no extrasystoles were noted during several minutes of auscultation. The first and second heart sounds were normal and physiologic splitting of the second heart sound was noted. There were no murmurs , rubs, clicks, or gallops.Abdominal exam revealed normal bowel sounds. The abdomen was soft, non-tender, and without masses, organomegaly, or appreciable enlargement of the abdominal aorta. Extremities are showing severely atrophied muscles both in the upper and lower extremities. No cyanosis or clubbing at this point. - Labs CBC & Chem 7: 12/15/16 06:16 12/15/16 06:16 Labs: Abnormal Lab Results - Last 24 Hours (Table) 12/14/16 12/14/16 12/14/16 Range/Units 12:16 17:14 17:39 WBC (3.8-10.6) k/uL RBC (3.80-5.40) m/uL Hgb (11.4-16.0) gm/dL Hct (34.0-46.0) % MCHC (31.0-37.0) g/dL Chloride (98-107) mmol/L Carbon Dioxide (22-30) mmol/L BUN (7-17) mg/dL Glucose (74-99) mg/dL POC Glucose (mg/dL) 135 H 164 H 164 H (75-99) mg/dL 12/14/16 12/15/16 12/15/16 Range/Units 21:11 06:12 06:16 WBC 11.4 H (3.8-10.6) k/uL RBC 3.11 L (3.80-5.40) m/uL Hgb 8.7 L (11.4-16.0) gm/dL Hct 30.1 L (34.0-46.0) % MCHC 29.0 L (31.0-37.0) g/dL Chloride (98-107) mmol/L Carbon Dioxide (22-30) mmol/L BUN (7-17) mg/dL Glucose (74-99) mg/dL POC Glucose (mg/dL) 123 H 143 H (75-99) mg/dL 12/15/16 12/15/16 Range/Units 06:16 11:55 WBC (3.8-10.6) k/uL RBC (3.80-5.40) m/uL Hgb (11.4-16.0) gm/dL Hct (34.0-46.0) % MCHC (31.0-37.0) g/dL Chloride 91 L (98-107) mmol/L Carbon Dioxide 40 H* (22-30) mmol/L BUN 33 H (7-17) mg/dL Glucose 127 H (74-99) mg/dL POC Glucose (mg/dL) 118 H (75-99) mg/dL Assessment and Plan Plan: 1 advanced COPD with acute exacerbation secondary shortness of breath On 12/08/2016 the patient was seen on the telemetry unit. She was having significant diminishment in her mental status. Her breathing seemed to be much more labored and she had marked diminished breath sounds bilaterally with prolongation of the expiratory phase of breathing. Immediate blood gases showed a component of an acute on top of chronic hypercapnic respiratory failure. The patient has a component of CO2 narcosis. She was placed on a BiPAP and she got moved to the intensive care unit. Further workup is pending. On 12/09/2016 the patient got moved to the intensive care unit. Overnight she gets support of the BiPAP systemic steroids and bronchodilators. I came to realize that the patient refused her Xopenex and this medication was placed on hold and the patient was not receiving it. This could've contributed to her respiratory failure knowing that the patient's COPD is very borderline and her diseases and stage. No aspiration of the chest x-ray remains clear. No signs of fluid overload effect the patient is intravascularly volume depleted. Doubt pulmonary embolism lung that the patient is on long-term anticoagulation. Klonopin causing restlessness suppression is less likely knowing that the patient has been maintenance medication for an extended period of time. She is refusing BiPAP for now. She has also refused systemic steroids and various inhalers however I insist to continue with the treatment as long as the patient is in the intensive care unit and had a lengthy discussion with her in this regard. On 12/10/2016, The patient is having recurrent episodes of hypercapnic the story failure. The exact cause is not clear. One part is that the patient is having some paradoxic reactions to Xopenex although this is much less likely. I think she has limited pulmonary reserve and she has respiratory fatigue which is causing further hypoventilation and hypercapnia. On her chest x-ray there is no signs of pneumonia fluid overload and atelectasis or aspiration. As such I think there is no other exacerbating factor including the potential of medication-induced hypoventilation as the patient was taken off clonazepam On 12/11/2016, the patient is slightly improved. She is was taken off the BiPAP this morning and she seems to much more alert and awake. She has however very weak and has limited reserve and she gets short of breath with minimal amount of activity. On examination air entry is improved bilaterally although the patient's breath sounds remain markedly diminished. I think she is an end- stage lung disease and she develops respiratory muscle fatigue and this was subsequently cause her to have CO2 narcosis and altered mentation. She is still being supported with BiPAP on and off during the day. On 12/12/2016 the patient continues to be on the same treatment. Awake and alert this morning. She is on 1 L of oxygen by nasal cannula about gases will be obtained to assess her acid base status. Theophylline will be also added. Chest x-ray remains unchanged. On 12/13/2016, no major improvement in the patient's condition essentially stable with very much dependence hours BiPAP. Taken the patient off the BiPAP will cause respiratory fatigue and respiratory failure. I'm unable to take her off the BiPAP for prolonged period of time. As such she seems to be much more dependent to the noninvasive partial pressure ventilation. On 12/14/2016, some improvement is noted, patient is tolerating nasal cannula, off BiPAP today, plan to transfer the patient to a regular medical floor, keeping in mind that BiPAP will remain at bedside. 2 chronic hypoxic respiratory failure due to advanced COPD. The patient has had previous hospitalization for COPD exacerbation and last was approximately 6 months ago 3 non-small cell lung cancer with a previous right middle lobe resection and subsequent wedge resection of the right upper lobe lesion followed by radiation therapy/[employer]ber[employer]ife therapy to a lung nodule and 4 esophageal cancer with previous esophagectomy transhiatal 5 cachexia and weight loss 6 chronic atrial fibrillation 7 hypertension 8 hyperlipidemia 9 chronic malnourishment 10 chronic anemia. 11. Azotemia/acute kidney injury secondary to diuresis Plan: Continue present treatment plan including bronchodilators, long-term prognosis is definitely poor and guarded,strongly doubt that the patient could be discharged home May have to consider ECF or rehab facility. Time with Patient: Less than 30
--- NOTE | 2016-12-15 12:54 | P.PN ---
Subjective On December 05, Patient is a 76-year-old male, patient of mine, with medical history significant for lung cancer with resection 2, COPD, chronic hypoxic respiratory failure on home O2, GI stromal cancer, atrial fibrillation, and hypertension, admitted through the emergency department via EMS with complaints of increased shortness of breath and chest pressure ongoing for approximately 3 days. Patient recently finished a course of antibiotics for urinary tract infection. No history of fevers, chills, sweats, nausea, vomiting , or abdominal pain. No urinary urgency, dysuria, hematuria. No history of constipation or diarrhea. EKG on admission with evidence of ruben sinus rhythm with incomplete right bundle branch block with no definite acute ischemia. Chest x-ray with evidence of lung carcinoma, cardiomegaly, and COPD. Echocardiogram with evidence of preserved left ventricular systolic function with an EF between 55-60%; moderate aortic valve sclerosis; moderate to severe tricuspid regurgitation; and moderate to severe pulmonary hypertension. Patient 's blood pressure was elevated at 190/94 in the emergency department. Troponins less than 0.0122, NT proBNP elevated at 3790. Patient was admitted into selective care unit with consult requested for pulmonary service and cardiology service. She spent several days on selective. Her Solu-Medrol was slowly weaned. She had difficulties with the updrafts that she seemed to be more short of breath similar to a paradoxical response, after treatments. She had hypercapnia and confusion and was transferred to intensive care unit on December 08 Patient now on the stepdown floor. Her daughter is at bedside and we discussed her case. She had Bipap overnight, but slept poorly. She is anxious and was placed on Klonopin 0.125 mg tid prn Objective - Vital Signs Vital signs: Vital Signs Temp 98.0 F 12/15/16 08:00 Pulse 76 12/15/16 12:20 Resp 36 H 12/15/16 11:25 BP 120/56 12/15/16 11:25 Pulse Ox 98 12/15/16 11:25 Intake & Output 12/14/16 12/15/16 12/15/16 18:59 06:59 18:59 Intake Total 400 500 400 Output Total 825 600 Balance -425 -100 400 Weight 44 kg 45.5 kg Intake: Intake, IV Titration 400 500 400 Amount Dextrose 5%-0.45% NaCl 1, 400 500 400 000 ml @ 50 mls/hr IV . Q20H [facility] Rx#:[id number] Output: Urine 825 600 Other: Voiding Method Indwelling Catheter Indwelling Catheter Indwelling Catheter # Voids 1 1 - Exam GENERAL: Pt is awake, frail looking, thin, Bipap Is currently on. NECK:Normal range of motion, supple without lymphadenopathy or JVD. LUNGS: Breath sounds diminished to auscultation bilaterally. No wheezes, rales , or rhonchi could be auscultated due to the poor air exchange, stable HEART: Heart S1, S2, no S3 or S4. Regular rate and rhythm. Systolic murmur.Cardiac Ectopic noted. ABDOMEN: Soft, nontender, nondistended, somewhat decreased bowel sounds. No guarding, no rebound. No masses or organomegaly appreciated. EXTREMITIES: Palpable peripheral pulses. Trace edema to bilateral lower extremities. No calf tenderness. NEUROLOGICAL: Pt AAO today, difficult to understand with BIPAP in place PSYCH: awake and responding/ anxious appearing SKIN: Warm, dry, intact. No rashes or lesions. - Labs CBC & Chem 7: 12/15/16 06:16 12/15/16 06:16 Labs: Abnormal Lab Results - Last 24 Hours (Table) 12/14/16 12/14/16 12/14/16 Range/Units 17:14 17:39 21:11 WBC (3.8-10.6) k/uL RBC (3.80-5.40) m/uL Hgb (11.4-16.0) gm/dL Hct (34.0-46.0) % MCHC (31.0-37.0) g/dL Chloride (98-107) mmol/L Carbon Dioxide (22-30) mmol/L BUN (7-17) mg/dL Glucose (74-99) mg/dL POC Glucose (mg/dL) 164 H 164 H 123 H (75-99) mg/dL 12/15/16 12/15/16 12/15/16 Range/Units 06:12 06:16 06:16 WBC 11.4 H (3.8-10.6) k/uL RBC 3.11 L (3.80-5.40) m/uL Hgb 8.7 L (11.4-16.0) gm/dL Hct 30.1 L (34.0-46.0) % MCHC 29.0 L (31.0-37.0) g/dL Chloride 91 L (98-107) mmol/L Carbon Dioxide 40 H* (22-30) mmol/L BUN 33 H (7-17) mg/dL Glucose 127 H (74-99) mg/dL POC Glucose (mg/dL) 143 H (75-99) mg/dL 12/15/16 Range/Units 11:55 WBC (3.8-10.6) k/uL RBC (3.80-5.40) m/uL Hgb (11.4-16.0) gm/dL Hct (34.0-46.0) % MCHC (31.0-37.0) g/dL Chloride (98-107) mmol/L Carbon Dioxide (22-30) mmol/L BUN (7-17) mg/dL Glucose (74-99) mg/dL POC Glucose (mg/dL) 118 H (75-99) mg/dL Assessment and Plan Plan: 1. Acute on chronic hypercapnic Respiratory failure: She continues under pulmonology/critical care she continues on Atrovent updrafts Solu-Medrol, when necessary Humalog and theophylline, more anxiety today 2. Paroxysmal atrial fibrillation: Continue Elequis, aspirin, lisinopril, metoprolol, amlodipine 3. Hypertension: blood pressures currently controlled 4. Anemia of chronic disease: We'll monitor hemoglobin 8.3 today 5. Chronic diastolic congestive heart failure.: Cardiology following, patient continues on oral Lasix, metoprolol, lisinopril, amlodipine 6. Anxiety and depression: Currently on Remeron and Klonopin when necessary, Klonopin had been held then she had been refusing klonopin till now 7. Severe pulmonary hypertension: Cardiology and pulmonology following. 8. 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 History of lung cancer, non-small cell carcinoma status post right middle lobe resection and, right upper lobe lesion: Stable 10. History of remote nicotine dependence. 11. GI prophylaxis: She'll continue on famotidine 12. DVT prophylaxis: She remains on Elequis 13. Medical debility: Physical therapy to evaluate. 14. Mild Acute renal failure/Renal insufficiency: Resolved, continue to monitor 15. Hyperkalemia-resolved: now down to 4.5 16 protein calorie nutrition: encourage increased intake Wait further recommendations from critical care, continue care, will recheck 1 day
[2016-12-15 16:55] LABS: Glucose,Whole Blood 156 mg/dL (75-99)
[2016-12-15] MEDS: MIRTAZAPINE 15 MG TAB PO SCH (21:27)
[2016-12-15] MEDS: clonazePAM 0.5 MG TAB PO PRN (21:33)
[2016-12-15 21:44] LABS: Glucose,Whole Blood 122 mg/dL (75-99)
[2016-12-16] MEDS: IPRATROPIUM 0.5 MG/2.5 ML NEBU INHALATION SCH ×5 (04:20→20:47)
[2016-12-16 05:56] LABS: Glucose,Whole Blood 136 mg/dL (75-99)
[2016-12-16 06:52] LABS: CH 27.6; CHCM 29.1; HCT 26.3 % (34.0-46.0); HDW 3.02; HGB 7.9 gm/dL (11.4-16.0); Hypochromasia Marked; MCH 28.7 pg (25.0-35.0); MCHC 30.2 g/dL (31.0-37.0); MCV 95.2 fL (80.0-100.0); Mean Platelet Volume 7.2; RBC 2.76 m/uL (3.80-5.40); WBC 11.7 k/uL (3.8-10.6)
[2016-12-16] MEDS: methylPREDNISolone SOD SUCCI 125 MG/2 ML VIAL IV SCH ×2 (07:05→11:44)
[2016-12-16] MEDS: INSULIN LISPRO (humaLOG) 300 UNIT/3 ML VIAL SQ SCH ×4 (07:06→21:06)
[2016-12-16 07:09] LABS: Blood Urea Nitrogen 29 mg/dL (7-17); Calcium 8.9 mg/dL (8.4-10.2); Chloride 93 mmol/L (98-107); Glucose 121 mg/dL (74-99); Non-African American GFR(MDRD) >60 (>60 ml/min/1.73 sqM); Phosphorous 3.3 mg/dL (2.5-4.5); Potassium 4.6 mmol/L (3.5-5.1); Sodium 137 mmol/L (137-145)
[2016-12-16 07:15] LABS: Anion Gap 3 mmol/L
--- NOTE | 2016-12-16 07:17 | XR ---
EXAMINATION TYPE: XR chest 1V portable DATE OF EXAM: 12/16/2016 6:50 AM Comparison: 12/15/2016 Clinical History: 76-year-old female shortness of breath Findings: Heart normal size. Postsurgical changes at both hilum with upward hilar retraction and upper lung vol ume loss. Chronic masslike opacity in the peripheral right upper lobe remains unchanged. Diffuse inte rstitial prominence and hyperinflation also redemonstrated. No new consolidation or pleural effusion. Dextroconvex scoliosis. Impression: Stable COPD with chronic parenchymal and postsurgical changes and masslike scar peripheral right uppe r lobe. No acute process seen.
[2016-12-16 07:22] LABS: Carbon Dioxide 41 mmol/L (22-30)
[2016-12-16] MEDS: amLODIPine 5 MG TAB PO SCH ×2 (07:50→20:56)
[2016-12-16] MEDS: METOPROLOL TARTRATE 50 MG TAB PO SCH ×3 (07:50→20:56)
[2016-12-16] MEDS: cloNIDine HCL 0.1 MG TAB PO SCH ×2 (07:50→20:56)
[2016-12-16] MEDS: FAMOTIDINE 20 MG TAB PO SCH (07:50)
[2016-12-16] MEDS: LISINOPRIL 10 MG TAB PO SCH ×3 (07:50→20:55)
[2016-12-16] MEDS: THEOPHYLLINE 24 HOUR 200 MG CAP.ER.24H PO SCH ×2 (07:51→20:55)
[2016-12-16] MEDS: APIXABAN 2.5 MG TABLET PO SCH ×2 (07:51→20:56)
[2016-12-16] MEDS: DEXTROSE 5%-0.45% NACL 1,000 ML IV SCH (07:52)
[2016-12-16] MEDS: clonazePAM 0.5 MG TAB PO PRN (08:18)
--- NOTE | 2016-12-16 09:41 | P.PN ---
Subjective Principal diagnosis: Acute hypoxic respiratory failure secondary to COPD exacerbation Patient is a 76-year-old male, patient of Dr. Thomas in the outpatient setting, with medical history significant for lung cancer with resection, COPD, chronic hypoxic respiratory failure on home O2, atrial fibrillation, and hypertension, admitted through the emergency department via EMS with complaints of increased shortness of breath and chest pressure ongoing for approximately 3 days. Patient recently finished a course of antibiotics for urinary tract infection. No history of fevers, chills, sweats, nausea, vomiting , or abdominal pain. No urinary urgency, dysuria, hematuria. No history of constipation or diarrhea. EKG on admission with evidence of ruben sinus rhythm with incomplete right bundle branch block with no definite acute ischemia. Chest x-ray with evidence of lung carcinoma, cardiomegaly, and COPD. Echocardiogram with evidence of preserved left ventricular systolic function with an EF between 55-60%; moderate aortic valve sclerosis; moderate to severe tricuspid regurgitation; and moderate to severe pulmonary hypertension. Patient 's blood pressure was elevated at 190/94 in the emergency department. Troponins less than 0.0122, NT proBNP elevated at 3790. Patient was admitted into selective care unit will consult requested for pulmonary service and cardiology service. On 12/07/2016 the patient is being seen in follow-up. She is less short of breath. She has experienced some side effects of the treatment including some occasional palpitation. I have opted to wean this patient off the steroids knowing that she is already improving and her breathing is improved and she is less short of breath. I'm also going to discontinue the Perforomist based on her reported symptoms of palpitation. She has no chest pain. She is quite weak. Appetite is also diminished. She is very much debilitated due to her advanced COPD and chronic hypoxic respiratory failure. X-ray shows no acute changes On 12/08/2016, was asked to give this patient immediately as the patient was found to be more lethargic and unresponsive. The daughter was at the bedside. She told me that since early this morning the patient was less responsive and interactive. Over the past 20-30 minutes the patient became even more obtunded. Upon my evaluation, the patient had very shallow breathing and she was also having prolongation of the expiratory phase of breathing and scattered expiratory wheezes. She denies having any aspiration. She was being given clonazepam 0.25 mg 4 times a day. No reported chest pain. No swelling in lower extremities. The patient on long-term anticoagulation and the possibility of pulmonary embolism is less likely. At that point her blood gases obtained and the patient was found to have a acute on top of her on it hypercapnic respiratory failure and the pH was at 7.3 with a pCO2 of 76, and the pO2 was 100. At that point, the patient was started on a BiPAP at a pressure of 14/6 cm of water to initiated tidal volume of around 350. She became more interactive. She got transferred to the intensive care unit. I was able to wake up this patient with frequent stimulation. She would open up her eyes. She would follow-up some simple commands and she was able to move all 4 extremities. Stroke is felt to be less likely. It is likely a respiratory failure with CO2 narcosis. Chest x-ray was ordered. Blood work was also ordered. The patient has been diuresed adequately and I think she is in prerenal state. Her CODE STATUS is DO NOT RESUSCITATE DO NOT INTUBATE. On 12/09/2016 the patient is being seen in follow-up. As mentioned, the patient got moved to the intensive care unit because of diminished level of consciousness and acute on top of chronic hypercapnic the story failure. She was started on BiPAP and her breathing was supported adequately. This morning she is off the BiPAP. She is awake and alert and following commands and answering questions appropriately. She has become very difficult to deal with knowing that the patient dictates the treatment and the medication that she should receive or not to receive. She has declined the BiPAP. She has declined the antibiotics. She is also declining the Xopenex tablets treatments. At times her request are quite unreasonable and they will essentially adversely affect her health condition in general. This was explained at length to her. I spent approximately 25-30 minutes counseling her and her daughter at the bedside on the importance of various bronchodilators and systemic steroids. The patient is quite debilitated. His COPD is end- stage. She also has history of non-small cell lung cancer and the details were mentioned earlier. I'm going to keep the Lasix on hold. I'm going to gently hydrate this patient knowing that she her BUN and creatinine was somewhat elevated compared to her baseline and this is probably related to intravascular volume depletion/dehydration. She is improved from the pulmonary standpoint although she cannot still completed. She has to make stops while talking. No significant rest or secretions. Cough is minimal. Always anxious. Refusing to eat. On 12/10/2016, the patient is being seen in follow-up. The events that occurred overnight was noted. After being on a BiPAP throughout the afternoon yesterday the patient regained her mentation and she woke up last and she was able to communicate with her family and she stayed up between 10 PM and 4 AM this morning. Following that she became progressively more lethargic and obtunded and around 8 to 9:00 this morning the patient became quite lethargic and her mentation was very much diminished. At that point she was placed back on BiPAP and currently she is on a BiPAP pressure of 60 over 4 cm of water. Her saturation is remains above 90%. The blood gases was done while in the BiPAP shows significant respiratory acidosis with a pH of 7.25 and pO2 of 92. The chest x-ray shows advanced COPD. No airspace disease or pulmonary infiltrates or pneumonia. There is a right upper lobe opacities was seen on previous chest x-rays. The patient is very much cachectic with limited pulmonary reserve and very poor nutritional status. Hemodynamically she is doing well. She has an adequate urine output. She is on half-normal seen today to 50 mL an hour. She is in a combination of Pulmicort Respules, Xopenex and Atrovent about treatments around the clock every 4 hours and IV Solu- Medrol. There is a concern that Xopenex is causing paradoxic bronchospasm and this lasts will be discontinued. On 12/11/2016, the patient is being seen in follow-up. The patient again recovered from hypercapnia and she regained back her mentation. She is awake and following commands and answering questions. I also heard that she ate a sandwich this morning. She is still using the BiPAP on and off during the day. She is quite weak and cachectic. She has however alert and conversing. She seems to be also appropriate. As mentioned earlier, I discontinued the Xopenex. The patient be kept on a combination of Pulmicort Respules and Atrovent about she moves around the clock and the patient will be kept on IV Solu-Medrol. Hemodynamically stable. Chest x-ray continues to be stable without any acute abnormalities. On 12/12/2016 I'm seeing this patient in follow-up. For the most part she is doing okay. On and off she still utilizing the BiPAP. This morning I took her off the BiPAP and admitted dropped her down to 2 L of oxygen nasal cannula. She was awake and she was able to converse and she was alert and she was appropriate. She is still on the same breast 20 medications. She did have a small amount of breakfast this morning. She is still hanging in there and that has been no deterioration in her condition. I feel like her COPD this stage but she is still not to the point where the family nor the patient already with comfort measures and hospice.. My plan is to continue with ongoing treatment and see if there is any role for some more improvement. I will consider the addition of theophylline today in addition. Chest x-ray is unchanged. On 12/13/2016, I'm not seeing much of an improvement or if it changes the patient's condition. The patient is showing no major signs of improvement. I took her off the BiPAP yesterday and I performed a blood gas which showed compensated hypercapnia. Subsequently the patient became more tired and she had to be placed back on the BiPAP. As such she is requiring the BiPAP frequently on and off during the day. She is getting progressively more weak. She is not sure whether she wants to continue this all of the family still thinking that there may be some hope for her. We'll continue the treatment and I'm thinking the patient's condition is gradually getting worse and the prognosis will be obviously worse as long as the patient's condition remains unchanged over the next few days. She denies having any chest pain. Anxiety levels are sometimes high and for that reason the patient is being given as needed clonazepam a low dose. No fever. No chills. No night sweats. No other complaints otherwise for now. Oral intake remains minimal and the patient is not meeting her caloric requirements still. On 12/14/2016, patient seems to be doing a bit better, breathing easier, she is presently on nasal cannula, off BiPAP. However intermittently has been using BiPAP. She was on it last night. But over the last few hours she has been on nasal cannula. Labs were reviewed and they seem to be relatively unremarkable. Chest x-ray showed COPD and chronic parenchymal and postsurgical changes as noted. I instructed the nurses taking care of the patient to consider transferring the patient to a regular medical floor today. On 12/15/2016, patient is about the same, still requires BiPAP intermittently. Continues to have diminished breath sounds bilaterally, and she is on off BiPAP. Intermittently.labs are reviewed, bicarb is 40 electrolytes are normal CBC is normal hemoglobin is 8.7. On 12/16/2016, patient remains about the same, intermittently requiring BiPAP, and she seems almost to be BiPAP dependent. Today I discussed her condition with the daughter, and I have a strong feeling that the overall picture does not look too promising. Labs were reviewed. Hemoglobin is 7.9 today. Patient seems to be extremely frail, chronically ill, and quite weak. I believe the patient should be considered for possible rehab facility. Otherwise not much to be added for her pulmonary disease at this point. Objective - Vital Signs Vital signs: Vital Signs Temp 97.0 F L 12/16/16 08:00 Pulse 82 12/16/16 08:00 Resp 28 H 12/16/16 08:00 BP 149/70 12/16/16 08:00 Pulse Ox 94 L 12/16/16 08:00 Intake & Output 12/15/16 12/16/16 12/16/16 18:59 06:59 18:59 Intake Total 400 370 Output Total 600 200 Balance -200 -200 370 Weight 51 kg Intake: Intake, IV Titration 400 150 Amount Dextrose 5%-0.45% NaCl 1, 400 150 000 ml @ 50 mls/hr IV . Q20H [facility] Rx#:[id number] Oral 220 Output: Urine 600 200 Other: Voiding Method Indwelling Catheter Indwelling Catheter Indwelling Catheter # Voids 225 # Bowel Movements 1 - Exam Cachectic and thin elderly female patient mild degree of respiratory distress. Diminished mental status and the patient has encephalopathy secondary to underlying hypercapnia.. She has advanced lung disease/end-stage. She is not using it is a muscle breathing. She is on the BiPAP this morning. She is very thin and she has significant loss and total body protein mass.Head exam was generally normal. There was no scleral icterus or corneal arcus. Mucous membranes were moist. Neck is supple there is some mucous membrane dryness. No thrush. Lungs sounds are markedly diminished along with some progress next phase of breathing and scattered external wheezes heard throughout the lung avila bilaterally.Cardiac exam revealed the PMI to be normally situated and sized. The rhythm was regular and no extrasystoles were noted during several minutes of auscultation. The first and second heart sounds were normal and physiologic splitting of the second heart sound was noted. There were no murmurs , rubs, clicks, or gallops.Abdominal exam revealed normal bowel sounds. The abdomen was soft, non-tender, and without masses, organomegaly, or appreciable enlargement of the abdominal aorta. Extremities are showing severely atrophied muscles both in the upper and lower extremities. No cyanosis or clubbing at this point. - Labs CBC & Chem 7: 12/16/16 06:05 12/16/16 06:05 Labs: Abnormal Lab Results - Last 24 Hours (Table) 12/15/16 12/15/16 12/15/16 Range/Units 11:55 16:53 21:42 WBC (3.8-10.6) k/uL RBC (3.80-5.40) m/uL Hgb (11.4-16.0) gm/dL Hct (34.0-46.0) % MCHC (31.0-37.0) g/dL Chloride (98-107) mmol/L Carbon Dioxide (22-30) mmol/L BUN (7-17) mg/dL Glucose (74-99) mg/dL POC Glucose (mg/dL) 118 H 156 H 122 H (75-99) mg/dL 12/16/16 12/16/16 12/16/16 Range/Units 05:47 06:05 06:05 WBC 11.7 H (3.8-10.6) k/uL RBC 2.76 L (3.80-5.40) m/uL Hgb 7.9 L (11.4-16.0) gm/dL Hct 26.3 L (34.0-46.0) % MCHC 30.2 L (31.0-37.0) g/dL Chloride 93 L (98-107) mmol/L Carbon Dioxide 41 H* (22-30) mmol/L BUN 29 H (7-17) mg/dL Glucose 121 H (74-99) mg/dL POC Glucose (mg/dL) 136 H (75-99) mg/dL Assessment and Plan Plan: 1 advanced COPD with acute exacerbation secondary shortness of breath On 12/08/2016 the patient was seen on the telemetry unit. She was having significant diminishment in her mental status. Her breathing seemed to be much more labored and she had marked diminished breath sounds bilaterally with prolongation of the expiratory phase of breathing. Immediate blood gases showed a component of an acute on top of chronic hypercapnic respiratory failure. The patient has a component of CO2 narcosis. She was placed on a BiPAP and she got moved to the intensive care unit. Further workup is pending. On 12/09/2016 the patient got moved to the intensive care unit. Overnight she gets support of the BiPAP systemic steroids and bronchodilators. I came to realize that the patient refused her Xopenex and this medication was placed on hold and the patient was not receiving it. This could've contributed to her respiratory failure knowing that the patient's COPD is very borderline and her diseases and stage. No aspiration of the chest x-ray remains clear. No signs of fluid overload effect the patient is intravascularly volume depleted. Doubt pulmonary embolism lung that the patient is on long-term anticoagulation. Klonopin causing restlessness suppression is less likely knowing that the patient has been maintenance medication for an extended period of time. She is refusing BiPAP for now. She has also refused systemic steroids and various inhalers however I insist to continue with the treatment as long as the patient is in the intensive care unit and had a lengthy discussion with her in this regard. On 12/10/2016, The patient is having recurrent episodes of hypercapnic the story failure. The exact cause is not clear. One part is that the patient is having some paradoxic reactions to Xopenex although this is much less likely. I think she has limited pulmonary reserve and she has respiratory fatigue which is causing further hypoventilation and hypercapnia. On her chest x-ray there is no signs of pneumonia fluid overload and atelectasis or aspiration. As such I think there is no other exacerbating factor including the potential of medication-induced hypoventilation as the patient was taken off clonazepam On 12/11/2016, the patient is slightly improved. She is was taken off the BiPAP this morning and she seems to much more alert and awake. She has however very weak and has limited reserve and she gets short of breath with minimal amount of activity. On examination air entry is improved bilaterally although the patient's breath sounds remain markedly diminished. I think she is an end- stage lung disease and she develops respiratory muscle fatigue and this was subsequently cause her to have CO2 narcosis and altered mentation. She is still being supported with BiPAP on and off during the day. On 12/12/2016 the patient continues to be on the same treatment. Awake and alert this morning. She is on 1 L of oxygen by nasal cannula about gases will be obtained to assess her acid base status. Theophylline will be also added. Chest x-ray remains unchanged. On 12/13/2016, no major improvement in the patient's condition essentially stable with very much dependence hours BiPAP. Taken the patient off the BiPAP will cause respiratory fatigue and respiratory failure. I'm unable to take her off the BiPAP for prolonged period of time. As such she seems to be much more dependent to the noninvasive partial pressure ventilation. On 12/14/2016, some improvement is noted, patient is tolerating nasal cannula, off BiPAP today, plan to transfer the patient to a regular medical floor, keeping in mind that BiPAP will remain at bedside. On 12/16/2016, no major change, patient still requires BiPAP quite frequently, I would suggest transferring the patient to some sort of rehab facility were and she could be kept on BiPAP at night, and hopefully ambulate during the day. Overall prognosis is definitely poor and guarded. 2 chronic hypoxic respiratory failure due to advanced COPD. The patient has had previous hospitalization for COPD exacerbation and last was approximately 6 months ago 3 non-small cell lung cancer with a previous right middle lobe resection and subsequent wedge resection of the right upper lobe lesion followed by radiation therapy/CyberKnife therapy to a lung nodule and 4 esophageal cancer with previous esophagectomy transhiatal 5 cachexia and weight loss 6 chronic atrial fibrillation 7 hypertension 8 hyperlipidemia 9 chronic malnourishment 10 chronic anemia. 11. Azotemia/acute kidney injury secondary to diuresis Plan: Continue present treatment plan consider discharge planning to a rehab facility, overall picture is definitely poor and prognosis is also poor. Time with Patient: Less than 30
--- NOTE | 2016-12-16 10:31 | CDI ---
In responding to this query, please exercise your independent professional judgment. The [facility] Coding Staff and Clinical Documentation Specialists appreciate your assistance in clarifying documentation, maintaining compliance with coding guidelines, accurately documenting patients condition and capturing severity of illness. The fact that a question is asked does not imply that any particular answer is desired or expected. Communication forms are a method of clarifying documentation and are not made part of the Legal Health Record. Thank you in advance for your clarification. Last Revision, July 2015 Therese Sanchez [address] [place] [address] Documentation Clarification Form 2nd Request Date: 12/08/2016 1:52:00 PM From: Maritza Marks RN, CCDS Admit Date: 12/05/2016 1:09:00 PM Patient Name: Danuta Villalobos Visit Number: [id number] Dr. Alex Thomas Malnourishment has been documented in Pulmonary Progress Notes. History/Risk Factors: Esophageal ca with esophagectomy, COPD, chronic hypoxic respiratory failure, hx of lung cancer with RML resection Clinical Indicators: 12/15 Attending Progress Note: Protein calorie nutrition Pulmonary Progress Notes: "cachexia and weight loss, chronic malnourishment." 12/08 Attending Progress Note: General Appearance: "GENERAL: Pt is awake, frail looking, thin, in mild respiratory distress. She appears tachypneic at rest." Labs: Albumin: 4 Total Protein: 7.6 Current BMI: 18.4 Insufficient energy intake: s/p transhiatal esophagectomy for esophageal CA Weight Loss: Documented by Pulmonary Treatment: Dietary Consult: completed 12/04, reassessed 12/14 Supplements: Glucerna TID Lab monitoring: Labs AM Daily In your professional opinion, can you please clarify if these findings signify one of the following conditions with severity? Mild Protein-Calorie Malnutrition Moderate Protein-Calorie Malnutrition Severe Protein-Calorie Malnutrition Other condition, please specify Unable to determine Please document in your progress notes and discharge summary in order to capture severity of illness and risk of mortality. Include clinical findings that support your diagnosis. FYI: Press F11 to launch patient chart. Place X here if this finding has no clinical significance, is not applicable or if you are not able to provide any additional documentation. MTDD
[2016-12-16] MEDS: CHOLECALCIFEROL 1,000 UNIT TAB PO SCH (11:45)
[2016-12-16] MEDS: MULTIVITAMINS, THERA 1 EACH TAB PO SCH (11:45)
[2016-12-16 11:55] LABS: Glucose,Whole Blood 134 mg/dL (75-99)
--- NOTE | 2016-12-16 14:23 | P.PN ---
Subjective On December 05, Patient is a 76-year-old male, patient of mine, with medical history significant for lung cancer with resection 2, COPD, chronic hypoxic respiratory failure on home O2, GI stromal cancer, atrial fibrillation, and hypertension, admitted through the emergency department via EMS with complaints of increased shortness of breath and chest pressure ongoing for approximately 3 days. Patient recently finished a course of antibiotics for urinary tract infection. No history of fevers, chills, sweats, nausea, vomiting , or abdominal pain. No urinary urgency, dysuria, hematuria. No history of constipation or diarrhea. EKG on admission with evidence of ruben sinus rhythm with incomplete right bundle branch block with no definite acute ischemia. Chest x-ray with evidence of lung carcinoma, cardiomegaly, and COPD. Echocardiogram with evidence of preserved left ventricular systolic function with an EF between 55-60%; moderate aortic valve sclerosis; moderate to severe tricuspid regurgitation; and moderate to severe pulmonary hypertension. Patient 's blood pressure was elevated at 190/94 in the emergency department. Troponins less than 0.0122, NT proBNP elevated at 3790. Patient was admitted into selective care unit with consult requested for pulmonary service and cardiology service. She spent several days on selective. Her Solu-Medrol was slowly weaned. She had difficulties with the updrafts that she seemed to be more short of breath similar to a paradoxical response, after treatments. She had hypercapnia and confusion and was transferred to intensive care unit on December 08 Patient now on the stepdown floor. Her daughter is at bedside and we discussed her case. She had Bipap overnight, and got some sleep after Klonopin 0.125 mg. D /C planning is working on her case. Objective - Vital Signs Vital signs: Vital Signs Temp 97.5 F L 12/16/16 12:00 Pulse 82 12/16/16 12:00 Resp 21 12/16/16 12:00 BP 94/59 12/16/16 12:00 Pulse Ox 99 12/16/16 12:00 Intake & Output 12/15/16 12/16/16 12/16/16 18:59 06:59 18:59 Intake Total 400 370 Output Total 600 200 200 Balance -200 -200 170 Weight 51 kg 51 kg Intake: Intake, IV Titration 400 150 Amount Dextrose 5%-0.45% NaCl 1, 400 150 000 ml @ 50 mls/hr IV . Q20H DWAIN Rx#:[id number] Oral 220 Output: Urine 600 200 200 Other: Voiding Method Indwelling Catheter Indwelling Catheter Indwelling Catheter # Voids 200 # Bowel Movements 1 - Exam GENERAL: Pt is awake, frail looking, thin, Bipap Is currently off. NECK:Normal range of motion, supple without lymphadenopathy or JVD. LUNGS: Breath sounds diminished to auscultation bilaterally. No wheezes, rales , or rhonchi could be auscultated due to the poor air exchange, stable HEART: Heart S1, S2, no S3 or S4. Regular rate and rhythm. Systolic murmur.Cardiac Ectopic noted. ABDOMEN: Soft, nontender, nondistended, somewhat decreased bowel sounds. No guarding, no rebound. No masses or organomegaly appreciated. EXTREMITIES: Palpable peripheral pulses. Trace edema to bilateral lower extremities. No calf tenderness. NEUROLOGICAL: Pt AAO today, difficult to understand with BIPAP in place PSYCH: awake and responding/ anxious appearing SKIN: Warm, dry, intact. No rashes or lesions. - Labs CBC & Chem 7: 12/16/16 06:05 12/16/16 06:05 Labs: Abnormal Lab Results - Last 24 Hours (Table) 12/15/16 12/15/16 12/16/16 Range/Units 16:53 21:42 05:47 WBC (3.8-10.6) k/uL RBC (3.80-5.40) m/uL Hgb (11.4-16.0) gm/dL Hct (34.0-46.0) % MCHC (31.0-37.0) g/dL Chloride (98-107) mmol/L Carbon Dioxide (22-30) mmol/L BUN (7-17) mg/dL Glucose (74-99) mg/dL POC Glucose (mg/dL) 156 H 122 H 136 H (75-99) mg/dL 12/16/16 12/16/16 12/16/16 Range/Units 06:05 06:05 11:48 WBC 11.7 H (3.8-10.6) k/uL RBC 2.76 L (3.80-5.40) m/uL Hgb 7.9 L (11.4-16.0) gm/dL Hct 26.3 L (34.0-46.0) % MCHC 30.2 L (31.0-37.0) g/dL Chloride 93 L (98-107) mmol/L Carbon Dioxide 41 H* (22-30) mmol/L BUN 29 H (7-17) mg/dL Glucose 121 H (74-99) mg/dL POC Glucose (mg/dL) 134 H (75-99) mg/dL Assessment and Plan Plan: 1. Acute on chronic hypercapnic Respiratory failure: She continues under pulmonology/critical care she continues on Atrovent updrafts Solu-Medrol, when necessary Humalog and theophylline. ween solumedrol 2. Paroxysmal atrial fibrillation: Continue Elequis, aspirin, lisinopril, metoprolol, amlodipine 3. Hypertension: blood pressures currently controlled 4. Anemia of chronic disease: We'll monitor hemoglobin 5. Chronic diastolic congestive heart failure.: Cardiology following, patient continues on oral Lasix, metoprolol, lisinopril, amlodipine 6. Anxiety and depression: Currently on Remeron and Klonopin when necessary, 7. Severe pulmonary hypertension: Cardiology and pulmonology following. 8. 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 History of lung cancer, non-small cell carcinoma status post right middle lobe resection and, right upper lobe lesion: Stable 10. History of remote nicotine dependence. 11. GI prophylaxis: She'll continue on famotidine 12. DVT prophylaxis: She remains on Elequis 13. Medical debility: Physical therapy to evaluate. 14. Mild Acute renal failure/Renal insufficiency: Resolved, continue to monitor 15. Hyperkalemia-resolved 16 protein calorie nutrition: encourage increased intake Wait further recommendations from critical care, continue care, will recheck 1 day, plan D/C to ECF when able
[2016-12-16 16:09] LABS: Glucose,Whole Blood 155 mg/dL (75-99)
[2016-12-16] MEDS: ACETAMINOPHEN TAB 325 MG TAB PO PRN (20:56)
[2016-12-16] MEDS: MIRTAZAPINE 15 MG TAB PO SCH (20:56)
[2016-12-16 21:04] LABS: Glucose,Whole Blood 132 mg/dL (75-99)
[2016-12-16] MEDS ORDERED: SALINE NASAL GEL 14.1 GM TUBE TOPICAL PRN (21:36)
[2016-12-16] MEDS: methylPREDNISolone SOD SUCCI 40 MG/ML 1 ML VIAL IV SCH (23:20)
[2016-12-17] MEDS: clonazePAM 0.5 MG TAB PO PRN (02:16)
[2016-12-17] MEDS: ACETAMINOPHEN TAB 325 MG TAB PO PRN ×5 (02:26→21:45)
[2016-12-17] MEDS: IPRATROPIUM 0.5 MG/2.5 ML NEBU INHALATION SCH ×5 (04:01→18:53)
[2016-12-17] MEDS: DEXTROSE 5%-0.45% NACL 1,000 ML IV SCH (06:05)
[2016-12-17 06:06] LABS: CH 27.1; CHCM 28.5; HCT 24.8 % (34.0-46.0); HDW 2.97; HGB 7.5 gm/dL (11.4-16.0); Hypochromasia Marked; MCHC 30.4 g/dL (31.0-37.0); MCV 95.4 fL (80.0-100.0); RDW 14.4 % (11.5-15.5); WBC 13.8 k/uL (3.8-10.6)
[2016-12-17 06:18] LABS: Anion Gap 5 mmol/L; Blood Urea Nitrogen 32 mg/dL (7-17); Calcium 9.1 mg/dL (8.4-10.2); Carbon Dioxide 36 mmol/L (22-30); Chloride 94 mmol/L (98-107); Glucose 128 mg/dL (74-99); Non-African American GFR(MDRD) >60 (>60 ml/min/1.73 sqM); Phosphorous 3.6 mg/dL (2.5-4.5); Potassium 4.4 mmol/L (3.5-5.1); Sodium 135 mmol/L (137-145)
[2016-12-17 06:19] LABS: Glucose,Whole Blood 131 mg/dL (75-99)
[2016-12-17] MEDS: INSULIN LISPRO (humaLOG) 300 UNIT/3 ML VIAL SQ SCH ×4 (06:20→21:39)
--- NOTE | 2016-12-17 07:10 | XR ---
EXAMINATION TYPE: XR chest 1V portable DATE OF EXAM: 12/17/2016 7:01 AM HISTORY: Shortness of breath. COMPARISON: None. TECHNIQUE: Single view of the chest is submitted. FINDINGS: Demonstrated are scattered senescent parenchymal change. Hyperinflation compatible with COPD. There is no evidence for focal infiltrate. Right apical masslike density is unchanged. The heart is stable. Hilar and mediastinal structures are within normal limits. Degenerative changes are seen of the dorsal spine. IMPRESSION: 1. Chronic changes without evidence for acute pulmonary disease.
[2016-12-17] MEDS: methylPREDNISolone SOD SUCCI 40 MG/ML 1 ML VIAL IV SCH ×2 (09:21→21:38)
[2016-12-17] MEDS: FAMOTIDINE 20 MG TAB PO SCH (09:21)
[2016-12-17] MEDS: METOPROLOL TARTRATE 50 MG TAB PO SCH ×3 (09:22→21:38)
[2016-12-17] MEDS: LISINOPRIL 10 MG TAB PO SCH ×3 (09:23→21:38)
[2016-12-17] MEDS: amLODIPine 5 MG TAB PO SCH ×2 (09:23→21:38)
[2016-12-17] MEDS: APIXABAN 2.5 MG TABLET PO SCH ×2 (09:24→21:38)
[2016-12-17] MEDS: THEOPHYLLINE 24 HOUR 200 MG CAP.ER.24H PO SCH ×2 (09:26→21:38)
[2016-12-17] MEDS: cloNIDine HCL 0.1 MG TAB PO SCH ×2 (09:29→21:38)
[2016-12-17 11:40] VITALS: BMI 21.7
--- NOTE | 2016-12-17 12:12 | P.PN ---
Subjective Principal diagnosis: Acute hypoxic respiratory failure secondary to COPD exacerbation Patient is a 76-year-old male, patient of Dr. Thomas in the outpatient setting, with medical history significant for lung cancer with resection, COPD, chronic hypoxic respiratory failure on home O2, atrial fibrillation, and hypertension, admitted through the emergency department via EMS with complaints of increased shortness of breath and chest pressure ongoing for approximately 3 days. Patient recently finished a course of antibiotics for urinary tract infection. No history of fevers, chills, sweats, nausea, vomiting , or abdominal pain. No urinary urgency, dysuria, hematuria. No history of constipation or diarrhea. EKG on admission with evidence of ruben sinus rhythm with incomplete right bundle branch block with no definite acute ischemia. Chest x-ray with evidence of lung carcinoma, cardiomegaly, and COPD. Echocardiogram with evidence of preserved left ventricular systolic function with an EF between 55-60%; moderate aortic valve sclerosis; moderate to severe tricuspid regurgitation; and moderate to severe pulmonary hypertension. Patient 's blood pressure was elevated at 190/94 in the emergency department. Troponins less than 0.0122, NT proBNP elevated at 3790. Patient was admitted into selective care unit will consult requested for pulmonary service and cardiology service. On 12/07/2016 the patient is being seen in follow-up. She is less short of breath. She has experienced some side effects of the treatment including some occasional palpitation. I have opted to wean this patient off the steroids knowing that she is already improving and her breathing is improved and she is less short of breath. I'm also going to discontinue the Perforomist based on her reported symptoms of palpitation. She has no chest pain. She is quite weak. Appetite is also diminished. She is very much debilitated due to her advanced COPD and chronic hypoxic respiratory failure. X-ray shows no acute changes On 12/08/2016, was asked to give this patient immediately as the patient was found to be more lethargic and unresponsive. The daughter was at the bedside. She told me that since early this morning the patient was less responsive and interactive. Over the past 20-30 minutes the patient became even more obtunded. Upon my evaluation, the patient had very shallow breathing and she was also having prolongation of the expiratory phase of breathing and scattered expiratory wheezes. She denies having any aspiration. She was being given clonazepam 0.25 mg 4 times a day. No reported chest pain. No swelling in lower extremities. The patient on long-term anticoagulation and the possibility of pulmonary embolism is less likely. At that point her blood gases obtained and the patient was found to have a acute on top of her on it hypercapnic respiratory failure and the pH was at 7.3 with a pCO2 of 76, and the pO2 was 100. At that point, the patient was started on a BiPAP at a pressure of 14/6 cm of water to initiated tidal volume of around 350. She became more interactive. She got transferred to the intensive care unit. I was able to wake up this patient with frequent stimulation. She would open up her eyes. She would follow-up some simple commands and she was able to move all 4 extremities. Stroke is felt to be less likely. It is likely a respiratory failure with CO2 narcosis. Chest x-ray was ordered. Blood work was also ordered. The patient has been diuresed adequately and I think she is in prerenal state. Her CODE STATUS is DO NOT RESUSCITATE DO NOT INTUBATE. On 12/09/2016 the patient is being seen in follow-up. As mentioned, the patient got moved to the intensive care unit because of diminished level of consciousness and acute on top of chronic hypercapnic the story failure. She was started on BiPAP and her breathing was supported adequately. This morning she is off the BiPAP. She is awake and alert and following commands and answering questions appropriately. She has become very difficult to deal with knowing that the patient dictates the treatment and the medication that she should receive or not to receive. She has declined the BiPAP. She has declined the antibiotics. She is also declining the Xopenex tablets treatments. At times her request are quite unreasonable and they will essentially adversely affect her health condition in general. This was explained at length to her. I spent approximately 25-30 minutes counseling her and her daughter at the bedside on the importance of various bronchodilators and systemic steroids. The patient is quite debilitated. His COPD is end- stage. She also has history of non-small cell lung cancer and the details were mentioned earlier. I'm going to keep the Lasix on hold. I'm going to gently hydrate this patient knowing that she her BUN and creatinine was somewhat elevated compared to her baseline and this is probably related to intravascular volume depletion/dehydration. She is improved from the pulmonary standpoint although she cannot still completed. She has to make stops while talking. No significant rest or secretions. Cough is minimal. Always anxious. Refusing to eat. On 12/10/2016, the patient is being seen in follow-up. The events that occurred overnight was noted. After being on a BiPAP throughout the afternoon yesterday the patient regained her mentation and she woke up last and she was able to communicate with her family and she stayed up between 10 PM and 4 AM this morning. Following that she became progressively more lethargic and obtunded and around 8 to 9:00 this morning the patient became quite lethargic and her mentation was very much diminished. At that point she was placed back on BiPAP and currently she is on a BiPAP pressure of 60 over 4 cm of water. Her saturation is remains above 90%. The blood gases was done while in the BiPAP shows significant respiratory acidosis with a pH of 7.25 and pO2 of 92. The chest x-ray shows advanced COPD. No airspace disease or pulmonary infiltrates or pneumonia. There is a right upper lobe opacities was seen on previous chest x-rays. The patient is very much cachectic with limited pulmonary reserve and very poor nutritional status. Hemodynamically she is doing well. She has an adequate urine output. She is on half-normal seen today to 50 mL an hour. She is in a combination of Pulmicort Respules, Xopenex and Atrovent about treatments around the clock every 4 hours and IV Solu- Medrol. There is a concern that Xopenex is causing paradoxic bronchospasm and this lasts will be discontinued. On 12/11/2016, the patient is being seen in follow-up. The patient again recovered from hypercapnia and she regained back her mentation. She is awake and following commands and answering questions. I also heard that she ate a sandwich this morning. She is still using the BiPAP on and off during the day. She is quite weak and cachectic. She has however alert and conversing. She seems to be also appropriate. As mentioned earlier, I discontinued the Xopenex. The patient be kept on a combination of Pulmicort Respules and Atrovent about she moves around the clock and the patient will be kept on IV Solu-Medrol. Hemodynamically stable. Chest x-ray continues to be stable without any acute abnormalities. On 12/12/2016 I'm seeing this patient in follow-up. For the most part she is doing okay. On and off she still utilizing the BiPAP. This morning I took her off the BiPAP and admitted dropped her down to 2 L of oxygen nasal cannula. She was awake and she was able to converse and she was alert and she was appropriate. She is still on the same breast 20 medications. She did have a small amount of breakfast this morning. She is still hanging in there and that has been no deterioration in her condition. I feel like her COPD this stage but she is still not to the point where the family nor the patient already with comfort measures and hospice.. My plan is to continue with ongoing treatment and see if there is any role for some more improvement. I will consider the addition of theophylline today in addition. Chest x-ray is unchanged. On 12/13/2016, I'm not seeing much of an improvement or if it changes the patient's condition. The patient is showing no major signs of improvement. I took her off the BiPAP yesterday and I performed a blood gas which showed compensated hypercapnia. Subsequently the patient became more tired and she had to be placed back on the BiPAP. As such she is requiring the BiPAP frequently on and off during the day. She is getting progressively more weak. She is not sure whether she wants to continue this all of the family still thinking that there may be some hope for her. We'll continue the treatment and I'm thinking the patient's condition is gradually getting worse and the prognosis will be obviously worse as long as the patient's condition remains unchanged over the next few days. She denies having any chest pain. Anxiety levels are sometimes high and for that reason the patient is being given as needed clonazepam a low dose. No fever. No chills. No night sweats. No other complaints otherwise for now. Oral intake remains minimal and the patient is not meeting her caloric requirements still. On 12/14/2016, patient seems to be doing a bit better, breathing easier, she is presently on nasal cannula, off BiPAP. However intermittently has been using BiPAP. She was on it last night. But over the last few hours she has been on nasal cannula. Labs were reviewed and they seem to be relatively unremarkable. Chest x-ray showed COPD and chronic parenchymal and postsurgical changes as noted. I instructed the nurses taking care of the patient to consider transferring the patient to a regular medical floor today. On 12/15/2016, patient is about the same, still requires BiPAP intermittently. Continues to have diminished breath sounds bilaterally, and she is on off BiPAP. Intermittently.labs are reviewed, bicarb is 40 electrolytes are normal CBC is normal hemoglobin is 8.7. On 12/16/2016, patient remains about the same, intermittently requiring BiPAP, and she seems almost to be BiPAP dependent. Today I discussed her condition with the daughter, and I have a strong feeling that the overall picture does not look too promising. Labs were reviewed. Hemoglobin is 7.9 today. Patient seems to be extremely frail, chronically ill, and quite weak. I believe the patient should be considered for possible rehab facility. Otherwise not much to be added for her pulmonary disease at this point. On 12/17/2016, patient is practically about the same. Still requiring intermittently BiPAP, patient is completely bedridden, and looks chronically ill frail cachectic. Her follow-up chest x-ray showed no evidence of active disease. Hemoglobin remains low, and I believe Dr. Thomas is planning a blood transfusion on this patient. Today I discussed the patient's condition with the admitting physician, and felt that the patient should be considered for possible discharge planning to [facility]. Planning on doing this tomorrow likely. Objective - Vital Signs Vital signs: Vital Signs Temp 97.7 F 12/17/16 08:00 Pulse 77 12/17/16 08:00 Resp 18 12/17/16 08:00 BP 140/71 12/17/16 08:00 Pulse Ox 96 12/17/16 08:00 Intake & Output 12/16/16 12/17/16 12/17/16 18:59 06:59 18:59 Intake Total 1040 500 Output Total 1100 Balance -60 500 Weight 51 kg 50.5 kg 50.5 kg Intake: IV 500 Dextrose 5%-0.45% NaCl 1, 500 000 ml @ 50 mls/hr IV . Q20H DWAIN Rx#:[id number] Intake, IV Titration 450 Amount Dextrose 5%-0.45% NaCl 1, 450 000 ml @ 50 mls/hr IV . Q20H DWAIN Rx#:[id number] Oral 590 Output: Urine 1100 Other: Voiding Method Indwelling Catheter Indwelling Catheter Indwelling Catheter # Voids 300 # Bowel Movements 1 - Exam Physical Exam Cachectic and thin elderly female patient mild degree of respiratory distress. HEENT:[Neck is supple.] [No neck masses.] [No thyromegaly.] [No JVD.] Chest: Extremely diminished breath sound bilaterally, no rhonchi, no wheezes.] Cardiac Exam: [Normal S1 and S2, no S3 gallop, no murmur.] Abdomen: [Soft, nontender, no megaly, no rebound, no guarding, normal bowel sounds.] Extremities: [No clubbing, no edema, no cyanosis.] Neurological Exam: [No focal neurologic deficit.] - Labs CBC & Chem 7: 12/17/16 05:28 12/17/16 05:28 Labs: Abnormal Lab Results - Last 24 Hours (Table) 12/16/16 12/16/16 12/17/16 Range/Units 16:02 21:01 05:28 WBC 13.8 H (3.8-10.6) k/uL RBC 2.60 L (3.80-5.40) m/uL Hgb 7.5 L (11.4-16.0) gm/dL Hct 24.8 L (34.0-46.0) % MCHC 30.4 L (31.0-37.0) g/dL Sodium (137-145) mmol/L Chloride (98-107) mmol/L Carbon Dioxide (22-30) mmol/L BUN (7-17) mg/dL Glucose (74-99) mg/dL POC Glucose (mg/dL) 155 H 132 H (75-99) mg/dL 12/17/16 12/17/16 Range/Units 05:28 06:02 WBC (3.8-10.6) k/uL RBC (3.80-5.40) m/uL Hgb (11.4-16.0) gm/dL Hct (34.0-46.0) % MCHC (31.0-37.0) g/dL Sodium 135 L (137-145) mmol/L Chloride 94 L (98-107) mmol/L Carbon Dioxide 36 H (22-30) mmol/L BUN 32 H (7-17) mg/dL Glucose 128 H (74-99) mg/dL POC Glucose (mg/dL) 131 H (75-99) mg/dL Assessment and Plan Plan: 1 advanced COPD with acute exacerbation secondary shortness of breath On 12/08/2016 the patient was seen on the telemetry unit. She was having significant diminishment in her mental status. Her breathing seemed to be much more labored and she had marked diminished breath sounds bilaterally with prolongation of the expiratory phase of breathing. Immediate blood gases showed a component of an acute on top of chronic hypercapnic respiratory failure. The patient has a component of CO2 narcosis. She was placed on a BiPAP and she got moved to the intensive care unit. Further workup is pending. On 12/09/2016 the patient got moved to the intensive care unit. Overnight she gets support of the BiPAP systemic steroids and bronchodilators. I came to realize that the patient refused her Xopenex and this medication was placed on hold and the patient was not receiving it. This could've contributed to her respiratory failure knowing that the patient's COPD is very borderline and her diseases and stage. No aspiration of the chest x-ray remains clear. No signs of fluid overload effect the patient is intravascularly volume depleted. Doubt pulmonary embolism lung that the patient is on long-term anticoagulation. Klonopin causing restlessness suppression is less likely knowing that the patient has been maintenance medication for an extended period of time. She is refusing BiPAP for now. She has also refused systemic steroids and various inhalers however I insist to continue with the treatment as long as the patient is in the intensive care unit and had a lengthy discussion with her in this regard. On 12/10/2016, The patient is having recurrent episodes of hypercapnic the story failure. The exact cause is not clear. One part is that the patient is having some paradoxic reactions to Xopenex although this is much less likely. I think she has limited pulmonary reserve and she has respiratory fatigue which is causing further hypoventilation and hypercapnia. On her chest x-ray there is no signs of pneumonia fluid overload and atelectasis or aspiration. As such I think there is no other exacerbating factor including the potential of medication-induced hypoventilation as the patient was taken off clonazepam On 12/11/2016, the patient is slightly improved. She is was taken off the BiPAP this morning and she seems to much more alert and awake. She has however very weak and has limited reserve and she gets short of breath with minimal amount of activity. On examination air entry is improved bilaterally although the patient's breath sounds remain markedly diminished. I think she is an end- stage lung disease and she develops respiratory muscle fatigue and this was subsequently cause her to have CO2 narcosis and altered mentation. She is still being supported with BiPAP on and off during the day. On 12/12/2016 the patient continues to be on the same treatment. Awake and alert this morning. She is on 1 L of oxygen by nasal cannula about gases will be obtained to assess her acid base status. Theophylline will be also added. Chest x-ray remains unchanged. On 12/13/2016, no major improvement in the patient's condition essentially stable with very much dependence hours BiPAP. Taken the patient off the BiPAP will cause respiratory fatigue and respiratory failure. I'm unable to take her off the BiPAP for prolonged period of time. As such she seems to be much more dependent to the noninvasive partial pressure ventilation. On 12/14/2016, some improvement is noted, patient is tolerating nasal cannula, off BiPAP today, plan to transfer the patient to a regular medical floor, keeping in mind that BiPAP will remain at bedside. On 12/16/2016, no major change, patient still requires BiPAP quite frequently, I would suggest transferring the patient to some sort of rehab facility were and she could be kept on BiPAP at night, and hopefully ambulate during the day. Overall prognosis is definitely poor and guarded. On 12/07/2016, no change, discussed with her admitting physician possible discharge planning to [facility], patient will receive likely a blood transfusion which will be ordered by Dr. Thomas today. That may help her overall constitutional status and weakness. 2 chronic hypoxic respiratory failure due to advanced COPD. The patient has had previous hospitalization for COPD exacerbation and last was approximately 6 months ago 3 non-small cell lung cancer with a previous right middle lobe resection and subsequent wedge resection of the right upper lobe lesion followed by radiation therapy/CyberKnife therapy to a lung nodule and 4 esophageal cancer with previous esophagectomy transhiatal 5 cachexia and weight loss 6 chronic atrial fibrillation 7 hypertension 8 hyperlipidemia 9 chronic malnourishment 10 chronic anemia. 11. Azotemia/acute kidney injury secondary to diuresis/resolved creatinine is now 0.8 Plan: Continue present treatment plan consider discharge planning to a rehab facility, overall picture is definitely poor and prognosis is also poor. Time with Patient: Less than 30
[2016-12-17 12:19] LABS: Glucose,Whole Blood 131 mg/dL (75-99)
[2016-12-17] MEDS: CHOLECALCIFEROL 1,000 UNIT TAB PO SCH (12:23)
[2016-12-17] MEDS: MULTIVITAMINS, THERA 1 EACH TAB PO SCH (12:23)
--- NOTE | 2016-12-17 13:11 | P.PN ---
Subjective On December 05, Patient is a 76-year-old male, patient of mine, with medical history significant for lung cancer with resection 2, COPD, chronic hypoxic respiratory failure on home O2, GI stromal cancer, atrial fibrillation, and hypertension, admitted through the emergency department via EMS with complaints of increased shortness of breath and chest pressure ongoing for approximately 3 days. Patient recently finished a course of antibiotics for urinary tract infection. No history of fevers, chills, sweats, nausea, vomiting , or abdominal pain. No urinary urgency, dysuria, hematuria. No history of constipation or diarrhea. EKG on admission with evidence of ruben sinus rhythm with incomplete right bundle branch block with no definite acute ischemia. Chest x-ray with evidence of lung carcinoma, cardiomegaly, and COPD. Echocardiogram with evidence of preserved left ventricular systolic function with an EF between 55-60%; moderate aortic valve sclerosis; moderate to severe tricuspid regurgitation; and moderate to severe pulmonary hypertension. Patient 's blood pressure was elevated at 190/94 in the emergency department. Troponins less than 0.0122, NT proBNP elevated at 3790. Patient was admitted into selective care unit with consult requested for pulmonary service and cardiology service. She spent several days on selective. Her Solu-Medrol was slowly weaned. She had difficulties with the updrafts that she seemed to be more short of breath similar to a paradoxical response, after treatments. She had hypercapnia and confusion and was transferred to intensive care unit on December 08 Patient remains on the stepdown floor. Her daughter is not available .She had Bipap overnight, and got some sleep after Klonopin 0.125 mg. D/C planning is working on her case. Her steroids were dropped and dosing yesterday. She is complaining of right upper quadrant abdominal pain today. Objective - Vital Signs Vital signs: Vital Signs Temp 97.7 F 12/17/16 08:00 Pulse 77 12/17/16 08:00 Resp 18 12/17/16 08:00 BP 140/71 12/17/16 08:00 Pulse Ox 96 12/17/16 08:00 Intake & Output 12/16/16 12/17/16 12/17/16 18:59 06:59 18:59 Intake Total 1040 500 Output Total 1100 Balance -60 500 Weight 51 kg 50.5 kg 50.5 kg Intake: IV 500 Dextrose 5%-0.45% NaCl 1, 500 000 ml @ 50 mls/hr IV . Q20H DWAIN Rx#:[id number] Intake, IV Titration 450 Amount Dextrose 5%-0.45% NaCl 1, 450 000 ml @ 50 mls/hr IV . Q20H DWAIN Rx#:[id number] Oral 590 Output: Urine 1100 Other: Voiding Method Indwelling Catheter Indwelling Catheter Indwelling Catheter # Voids 300 # Bowel Movements 1 - Exam GENERAL: Pt is awake, frail looking, thin, Bipap Is currently off. NECK:Normal range of motion, supple without lymphadenopathy or JVD. LUNGS: Breath sounds diminished to auscultation bilaterally. No wheezes, rales , or rhonchi could be auscultated due to the poor air exchange, stable HEART: Heart S1, S2, no S3 or S4. Regular rate and rhythm. Systolic murmur ABDOMEN: Soft, nondistended, somewhat decreased bowel sounds. No guarding, no rebound. No masses or organomegaly appreciated. There is a right upper quadrant pain to palpation today. EXTREMITIES: Palpable peripheral pulses. Trace edema to bilateral lower extremities. No calf tenderness. NEUROLOGICAL: Pt AAO today, difficult to understand with BIPAP in place PSYCH: awake and responding/ anxious appearing SKIN: Warm, dry, intact. No rashes or lesions. - Labs CBC & Chem 7: 12/17/16 05:28 12/17/16 05:28 Labs: Abnormal Lab Results - Last 24 Hours (Table) 12/16/16 12/16/16 12/17/16 Range/Units 16:02 21:01 05:28 WBC 13.8 H (3.8-10.6) k/uL RBC 2.60 L (3.80-5.40) m/uL Hgb 7.5 L (11.4-16.0) gm/dL Hct 24.8 L (34.0-46.0) % MCHC 30.4 L (31.0-37.0) g/dL Sodium (137-145) mmol/L Chloride (98-107) mmol/L Carbon Dioxide (22-30) mmol/L BUN (7-17) mg/dL Glucose (74-99) mg/dL POC Glucose (mg/dL) 155 H 132 H (75-99) mg/dL 04/13/17 04/13/17 04/13/17 Range/Units 05:28 06:02 12:04 WBC (3.8-10.6) k/uL RBC (3.80-5.40) m/uL Hgb (11.4-16.0) gm/dL Hct (34.0-46.0) % MCHC (31.0-37.0) g/dL Sodium 135 L (137-145) mmol/L Chloride 94 L (98-107) mmol/L Carbon Dioxide 36 H (22-30) mmol/L BUN 32 H (7-17) mg/dL Glucose 128 H (74-99) mg/dL POC Glucose (mg/dL) 131 H 131 H (75-99) mg/dL Assessment and Plan Plan: 1. Acute on chronic hypercapnic Respiratory failure: She continues under pulmonology/critical care she continues on Atrovent updrafts Solu-Medrol, when necessary Humalog and theophylline. ween solumedrol the case discussed with Dr. Johnson today and will plan for placement 2. Paroxysmal atrial fibrillation: Continue Elequis, aspirin, lisinopril, metoprolol, amlodipine 3. Hypertension: blood pressures currently controlled 4. Anemia of chronic disease: We'll monitor hemoglobin 5. Chronic diastolic congestive heart failure.: Cardiology following, patient continues on oral Lasix, metoprolol, lisinopril, amlodipine 6. Anxiety and depression: Currently on Remeron and Klonopin when necessary, 7. Severe pulmonary hypertension: Cardiology and pulmonology following. 8. 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 History of lung cancer, non-small cell carcinoma status post right middle lobe resection and, right upper lobe lesion: Stable 10. History of remote nicotine dependence. 11. GI prophylaxis: She'll continue on famotidine 12. DVT prophylaxis: She remains on Elequis 13. Medical debility: Physical therapy to evaluate. 14. Mild Acute renal failure/Renal insufficiency: Resolved, continue to monitor 15. Hyperkalemia-resolved 16 protein calorie nutrition: encourage increased intake Wait further recommendations from critical care, continue care, will recheck 1 day, plan D/C to ECF when able
[2016-12-17 17:07] LABS: Glucose,Whole Blood 119 mg/dL (75-99)
[2016-12-17 20:56] LABS: Glucose,Whole Blood 109 mg/dL (75-99)
[2016-12-17] MEDS: MIRTAZAPINE 15 MG TAB PO SCH (21:39)
[2016-12-18] MEDS ORDERED: clonazePAM 0.5 MG TAB ONE (00:30)
[2016-12-18] MEDS: IPRATROPIUM 0.5 MG/2.5 ML NEBU INHALATION SCH ×4 (05:19→18:22)
[2016-12-18 05:51] LABS: Glucose,Whole Blood 126 mg/dL (75-99)
[2016-12-18] MEDS: INSULIN LISPRO (humaLOG) 300 UNIT/3 ML VIAL SQ SCH ×2 (06:13→12:47)
[2016-12-18 06:19] LABS: Basophils % (A) 0 %; CHCM 30.8; Eosinophils % (A) 0 %; HCT 32.4 % (34.0-46.0); HDW 4.23; HGB 10.1 gm/dL (11.4-16.0); Hypochromasia Marked; Luc # (Auto) 0.04; Luc % (Auto) 0; Lymphocytes # (A) 0.4 k/uL (1.0-4.8); Lymphocytes % (A) 2 %; MCH 29.4 pg (25.0-35.0); MCHC 31.1 g/dL (31.0-37.0); MCV 94.5 fL (80.0-100.0); Mean Platelet Volume 7.2; Monocytes # (A) 0.4 k/uL (0-1.0); Monocytes % (A) 3 %; Neutrophils # (A) 15.6 k/uL (1.3-7.7); Neutrophils % (A) 95 %; Poikilocytosis Moderate; RBC 3.43 m/uL (3.80-5.40); RDW 14.8 % (11.5-15.5); WBC 16.4 k/uL (3.8-10.6); WBC (Perox) 17.71
[2016-12-18 06:32] LABS: Blood Urea Nitrogen 29 mg/dL (7-17); Calcium 9.2 mg/dL (8.4-10.2); Chloride 94 mmol/L (98-107); Glucose 134 mg/dL (74-99); Non-African American GFR(MDRD) >60 (>60 ml/min/1.73 sqM); Potassium 5.3 mmol/L (3.5-5.1); Sodium 138 mmol/L (137-145)
[2016-12-18 06:39] LABS: Anion Gap 3 mmol/L
[2016-12-18 06:41] LABS: Carbon Dioxide 41 mmol/L (22-30)
[2016-12-18 08:54] VITALS: RESP 18; TEMP 97.8
[2016-12-18] MEDS: LISINOPRIL 10 MG TAB PO SCH (09:00)
[2016-12-18] MEDS: cloNIDine HCL 0.1 MG TAB PO SCH (09:00)
[2016-12-18] MEDS: FAMOTIDINE 20 MG TAB PO SCH (09:00)
[2016-12-18] MEDS: METOPROLOL TARTRATE 50 MG TAB PO SCH (09:00)
[2016-12-18] MEDS: THEOPHYLLINE 24 HOUR 200 MG CAP.ER.24H PO SCH (09:00)
[2016-12-18] MEDS: ACETAMINOPHEN TAB 325 MG TAB PO PRN ×3 (09:00→15:33)
[2016-12-18] MEDS: amLODIPine 5 MG TAB PO SCH (09:00)
[2016-12-18] MEDS: APIXABAN 2.5 MG TABLET PO SCH (09:01)
[2016-12-18] MEDS: DEXTROSE 5%-0.45% NACL 1,000 ML IV SCH (09:01)
[2016-12-18] MEDS: methylPREDNISolone SOD SUCCI 40 MG/ML 1 ML VIAL IV SCH (09:02)
[2016-12-18 11:52] LABS: Glucose,Whole Blood 134 mg/dL (75-99)
--- NOTE | 2016-12-18 12:37 | P.PN ---
Subjective Principal diagnosis: Acute hypoxic respiratory failure secondary to COPD exacerbation Patient is a 76-year-old male, patient of Dr. Thomas in the outpatient setting, with medical history significant for lung cancer with resection, COPD, chronic hypoxic respiratory failure on home O2, atrial fibrillation, and hypertension, admitted through the emergency department via EMS with complaints of increased shortness of breath and chest pressure ongoing for approximately 3 days. Patient recently finished a course of antibiotics for urinary tract infection. No history of fevers, chills, sweats, nausea, vomiting , or abdominal pain. No urinary urgency, dysuria, hematuria. No history of constipation or diarrhea. EKG on admission with evidence of ruben sinus rhythm with incomplete right bundle branch block with no definite acute ischemia. Chest x-ray with evidence of lung carcinoma, cardiomegaly, and COPD. Echocardiogram with evidence of preserved left ventricular systolic function with an EF between 55-60%; moderate aortic valve sclerosis; moderate to severe tricuspid regurgitation; and moderate to severe pulmonary hypertension. Patient 's blood pressure was elevated at 190/94 in the emergency department. Troponins less than 0.0122, NT proBNP elevated at 3790. Patient was admitted into selective care unit will consult requested for pulmonary service and cardiology service. On 12/07/2016 the patient is being seen in follow-up. She is less short of breath. She has experienced some side effects of the treatment including some occasional palpitation. I have opted to wean this patient off the steroids knowing that she is already improving and her breathing is improved and she is less short of breath. I'm also going to discontinue the Perforomist based on her reported symptoms of palpitation. She has no chest pain. She is quite weak. Appetite is also diminished. She is very much debilitated due to her advanced COPD and chronic hypoxic respiratory failure. X-ray shows no acute changes On 12/08/2016, was asked to give this patient immediately as the patient was found to be more lethargic and unresponsive. The daughter was at the bedside. She told me that since early this morning the patient was less responsive and interactive. Over the past 20-30 minutes the patient became even more obtunded. Upon my evaluation, the patient had very shallow breathing and she was also having prolongation of the expiratory phase of breathing and scattered expiratory wheezes. She denies having any aspiration. She was being given clonazepam 0.25 mg 4 times a day. No reported chest pain. No swelling in lower extremities. The patient on long-term anticoagulation and the possibility of pulmonary embolism is less likely. At that point her blood gases obtained and the patient was found to have a acute on top of her on it hypercapnic respiratory failure and the pH was at 7.3 with a pCO2 of 76, and the pO2 was 100. At that point, the patient was started on a BiPAP at a pressure of 14/6 cm of water to initiated tidal volume of around 350. She became more interactive. She got transferred to the intensive care unit. I was able to wake up this patient with frequent stimulation. She would open up her eyes. She would follow-up some simple commands and she was able to move all 4 extremities. Stroke is felt to be less likely. It is likely a respiratory failure with CO2 narcosis. Chest x-ray was ordered. Blood work was also ordered. The patient has been diuresed adequately and I think she is in prerenal state. Her CODE STATUS is DO NOT RESUSCITATE DO NOT INTUBATE. On 12/09/2016 the patient is being seen in follow-up. As mentioned, the patient got moved to the intensive care unit because of diminished level of consciousness and acute on top of chronic hypercapnic the story failure. She was started on BiPAP and her breathing was supported adequately. This morning she is off the BiPAP. She is awake and alert and following commands and answering questions appropriately. She has become very difficult to deal with knowing that the patient dictates the treatment and the medication that she should receive or not to receive. She has declined the BiPAP. She has declined the antibiotics. She is also declining the Xopenex tablets treatments. At times her request are quite unreasonable and they will essentially adversely affect her health condition in general. This was explained at length to her. I spent approximately 25-30 minutes counseling her and her daughter at the bedside on the importance of various bronchodilators and systemic steroids. The patient is quite debilitated. His COPD is end- stage. She also has history of non-small cell lung cancer and the details were mentioned earlier. I'm going to keep the Lasix on hold. I'm going to gently hydrate this patient knowing that she her BUN and creatinine was somewhat elevated compared to her baseline and this is probably related to intravascular volume depletion/dehydration. She is improved from the pulmonary standpoint although she cannot still completed. She has to make stops while talking. No significant rest or secretions. Cough is minimal. Always anxious. Refusing to eat. On 12/10/2016, the patient is being seen in follow-up. The events that occurred overnight was noted. After being on a BiPAP throughout the afternoon yesterday the patient regained her mentation and she woke up last and she was able to communicate with her family and she stayed up between 10 PM and 4 AM this morning. Following that she became progressively more lethargic and obtunded and around 8 to 9:00 this morning the patient became quite lethargic and her mentation was very much diminished. At that point she was placed back on BiPAP and currently she is on a BiPAP pressure of 60 over 4 cm of water. Her saturation is remains above 90%. The blood gases was done while in the BiPAP shows significant respiratory acidosis with a pH of 7.25 and pO2 of 92. The chest x-ray shows advanced COPD. No airspace disease or pulmonary infiltrates or pneumonia. There is a right upper lobe opacities was seen on previous chest x-rays. The patient is very much cachectic with limited pulmonary reserve and very poor nutritional status. Hemodynamically she is doing well. She has an adequate urine output. She is on half-normal seen today to 50 mL an hour. She is in a combination of Pulmicort Respules, Xopenex and Atrovent about treatments around the clock every 4 hours and IV Solu- Medrol. There is a concern that Xopenex is causing paradoxic bronchospasm and this lasts will be discontinued. On 12/11/2016, the patient is being seen in follow-up. The patient again recovered from hypercapnia and she regained back her mentation. She is awake and following commands and answering questions. I also heard that she ate a sandwich this morning. She is still using the BiPAP on and off during the day. She is quite weak and cachectic. She has however alert and conversing. She seems to be also appropriate. As mentioned earlier, I discontinued the Xopenex. The patient be kept on a combination of Pulmicort Respules and Atrovent about she moves around the clock and the patient will be kept on IV Solu-Medrol. Hemodynamically stable. Chest x-ray continues to be stable without any acute abnormalities. On 12/12/2016 I'm seeing this patient in follow-up. For the most part she is doing okay. On and off she still utilizing the BiPAP. This morning I took her off the BiPAP and admitted dropped her down to 2 L of oxygen nasal cannula. She was awake and she was able to converse and she was alert and she was appropriate. She is still on the same breast 20 medications. She did have a small amount of breakfast this morning. She is still hanging in there and that has been no deterioration in her condition. I feel like her COPD this stage but she is still not to the point where the family nor the patient already with comfort measures and hospice.. My plan is to continue with ongoing treatment and see if there is any role for some more improvement. I will consider the addition of theophylline today in addition. Chest x-ray is unchanged. On 12/13/2016, I'm not seeing much of an improvement or if it changes the patient's condition. The patient is showing no major signs of improvement. I took her off the BiPAP yesterday and I performed a blood gas which showed compensated hypercapnia. Subsequently the patient became more tired and she had to be placed back on the BiPAP. As such she is requiring the BiPAP frequently on and off during the day. She is getting progressively more weak. She is not sure whether she wants to continue this all of the family still thinking that there may be some hope for her. We'll continue the treatment and I'm thinking the patient's condition is gradually getting worse and the prognosis will be obviously worse as long as the patient's condition remains unchanged over the next few days. She denies having any chest pain. Anxiety levels are sometimes high and for that reason the patient is being given as needed clonazepam a low dose. No fever. No chills. No night sweats. No other complaints otherwise for now. Oral intake remains minimal and the patient is not meeting her caloric requirements still. On 12/14/2016, patient seems to be doing a bit better, breathing easier, she is presently on nasal cannula, off BiPAP. However intermittently has been using BiPAP. She was on it last night. But over the last few hours she has been on nasal cannula. Labs were reviewed and they seem to be relatively unremarkable. Chest x-ray showed COPD and chronic parenchymal and postsurgical changes as noted. I instructed the nurses taking care of the patient to consider transferring the patient to a regular medical floor today. On 12/15/2016, patient is about the same, still requires BiPAP intermittently. Continues to have diminished breath sounds bilaterally, and she is on off BiPAP. Intermittently.labs are reviewed, bicarb is 40 electrolytes are normal CBC is normal hemoglobin is 8.7. On 12/16/2016, patient remains about the same, intermittently requiring BiPAP, and she seems almost to be BiPAP dependent. Today I discussed her condition with the daughter, and I have a strong feeling that the overall picture does not look too promising. Labs were reviewed. Hemoglobin is 7.9 today. Patient seems to be extremely frail, chronically ill, and quite weak. I believe the patient should be considered for possible rehab facility. Otherwise not much to be added for her pulmonary disease at this point. On 12/17/2016, patient is practically about the same. Still requiring intermittently BiPAP, patient is completely bedridden, and looks chronically ill frail cachectic. Her follow-up chest x-ray showed no evidence of active disease. Hemoglobin remains low, and I believe Dr. Thomas is planning a blood transfusion on this patient. Today I discussed the patient's condition with the admitting physician, and felt that the patient should be considered for possible discharge planning to [facility]. Planning on doing this tomorrow likely. On 12/18/2016, no major change, patient continues to have shortness of breath with any activity or even at rest. She continues to have intermittent use of the BiPAP, continues to have right sided pain over the right hemidiaphragm area. And overall the patient is basically about the same. I have explained to her today and to her daughter that her condition is basically terminal and her COPD is rather end-stage. I do not truly expect significant improvement considering the severity of his COPD. Patient would have to possibly cope with her condition as much as possible, and she is maximized on treatment. She did receive 1 unit of packed RBCs yesterday, and her hemoglobin is up to 10.1. This does not make her feel much better. Her basic metabolic profile is relatively unremarkable. Objective - Vital Signs Vital signs: Vital Signs Temp 97.8 F 12/18/16 08:00 Pulse 88 12/18/16 08:00 Resp 18 12/18/16 08:00 BP 115/59 12/18/16 08:00 Pulse Ox 93 L 12/18/16 08:00 Intake & Output 12/17/16 12/18/16 12/18/16 18:59 06:59 18:59 Intake Total 0 1110 180 Output Total 400 Balance 0 710 180 Weight 50.5 kg 50.5 kg Intake: IV 800 Dextrose 5%-0.45% NaCl 1, 800 000 ml @ 50 mls/hr IV . Q20H [facility] Rx#:[id number] Oral 180 Blood Product 0 310 Rc As-1 Unit 0 310 [id number] Output: Urine 400 Other: Voiding Method Indwelling Catheter Indwelling Catheter Indwelling Catheter # Bowel Movements 1 - Exam Physical Exam Cachectic and thin elderly female patient mild degree of respiratory distress. HEENT:[Neck is supple.] [No neck masses.] [No thyromegaly.] [No JVD.] Chest: Extremely diminished breath sound bilaterally, no rhonchi, no wheezes.] Cardiac Exam: [Normal S1 and S2, no S3 gallop, no murmur.] Abdomen: [Soft, nontender, no megaly, no rebound, no guarding, normal bowel sounds.] Extremities: [No clubbing, no edema, no cyanosis.] Neurological Exam: [No focal neurologic deficit.] - Labs CBC & Chem 7: 12/18/16 05:30 12/18/16 05:30 Labs: Abnormal Lab Results - Last 24 Hours (Table) 12/17/16 12/17/16 12/17/16 Range/Units 11:36 16:53 20:54 WBC (3.8-10.6) k/uL RBC (3.80-5.40) m/uL Hgb (11.4-16.0) gm/dL Hct (34.0-46.0) % Neutrophils # (1.3-7.7) k/uL Lymphocytes # (1.0-4.8) k/uL Potassium (3.5-5.1) mmol/L Chloride (98-107) mmol/L Carbon Dioxide (22-30) mmol/L BUN (7-17) mg/dL Glucose (74-99) mg/dL POC Glucose (mg/dL) 119 H 109 H (75-99) mg/dL Crossmatch See Detail 12/18/16 12/18/1617 Range/Units 05:30 05:30 05:49 WBC 16.4 H (3.8-10.6) k/uL RBC 3.43 L (3.80-5.40) m/uL Hgb 10.1 L (11.4-16.0) gm/dL Hct 32.4 L (34.0-46.0) % Neutrophils # 15.6 H (1.3-7.7) k/uL Lymphocytes # 0.4 L (1.0-4.8) k/uL Potassium 5.3 H (3.5-5.1) mmol/L Chloride 94 L (98-107) mmol/L Carbon Dioxide 41 H* (22-30) mmol/L BUN 29 H (7-17) mg/dL Glucose 134 H (74-99) mg/dL POC Glucose (mg/dL) 126 H (75-99) mg/dL Crossmatch 12/18/16 Range/Units 11:48 WBC (3.8-10.6) k/uL RBC (3.80-5.40) m/uL Hgb (11.4-16.0) gm/dL Hct (34.0-46.0) % Neutrophils # (1.3-7.7) k/uL Lymphocytes # (1.0-4.8) k/uL Potassium (3.5-5.1) mmol/L Chloride (98-107) mmol/L Carbon Dioxide (22-30) mmol/L BUN (7-17) mg/dL Glucose (74-99) mg/dL POC Glucose (mg/dL) 134 H (75-99) mg/dL Crossmatch Assessment and Plan Plan: 1 advanced COPD with acute exacerbation secondary shortness of breath On 12/08/2016 the patient was seen on the telemetry unit. She was having significant diminishment in her mental status. Her breathing seemed to be much more labored and she had marked diminished breath sounds bilaterally with prolongation of the expiratory phase of breathing. Immediate blood gases showed a component of an acute on top of chronic hypercapnic respiratory failure. The patient has a component of CO2 narcosis. She was placed on a BiPAP and she got moved to the intensive care unit. Further workup is pending. On 12/09/2016 the patient got moved to the intensive care unit. Overnight she gets support of the BiPAP systemic steroids and bronchodilators. I came to realize that the patient refused her Xopenex and this medication was placed on hold and the patient was not receiving it. This could've contributed to her respiratory failure knowing that the patient's COPD is very borderline and her diseases and stage. No aspiration of the chest x-ray remains clear. No signs of fluid overload effect the patient is intravascularly volume depleted. Doubt pulmonary embolism lung that the patient is on long-term anticoagulation. Klonopin causing restlessness suppression is less likely knowing that the patient has been maintenance medication for an extended period of time. She is refusing BiPAP for now. She has also refused systemic steroids and various inhalers however I insist to continue with the treatment as long as the patient is in the intensive care unit and had a lengthy discussion with her in this regard. On 12/10/2016, The patient is having recurrent episodes of hypercapnic the story failure. The exact cause is not clear. One part is that the patient is having some paradoxic reactions to Xopenex although this is much less likely. I think she has limited pulmonary reserve and she has respiratory fatigue which is causing further hypoventilation and hypercapnia. On her chest x-ray there is no signs of pneumonia fluid overload and atelectasis or aspiration. As such I think there is no other exacerbating factor including the potential of medication-induced hypoventilation as the patient was taken off clonazepam On 12/11/2016, the patient is slightly improved. She is was taken off the BiPAP this morning and she seems to much more alert and awake. She has however very weak and has limited reserve and she gets short of breath with minimal amount of activity. On examination air entry is improved bilaterally although the patient's breath sounds remain markedly diminished. I think she is an end- stage lung disease and she develops respiratory muscle fatigue and this was subsequently cause her to have CO2 narcosis and altered mentation. She is still being supported with BiPAP on and off during the day. On 12/12/2016 the patient continues to be on the same treatment. Awake and alert this morning. She is on 1 L of oxygen by nasal cannula about gases will be obtained to assess her acid base status. Theophylline will be also added. Chest x-ray remains unchanged. On 12/13/2016, no major improvement in the patient's condition essentially stable with very much dependence hours BiPAP. Taken the patient off the BiPAP will cause respiratory fatigue and respiratory failure. I'm unable to take her off the BiPAP for prolonged period of time. As such she seems to be much more dependent to the noninvasive partial pressure ventilation. On 12/14/2016, some improvement is noted, patient is tolerating nasal cannula, off BiPAP today, plan to transfer the patient to a regular medical floor, keeping in mind that BiPAP will remain at bedside. On 12/16/2016, no major change, patient still requires BiPAP quite frequently, I would suggest transferring the patient to some sort of rehab facility were and she could be kept on BiPAP at night, and hopefully ambulate during the day. Overall prognosis is definitely poor and guarded. On 12/07/2016, no change, discussed with her admitting physician possible discharge planning to [facility], patient will receive likely a blood transfusion which will be ordered by Dr. Thomas today. That may help her overall constitutional status and weakness. 2 chronic hypoxic respiratory failure due to advanced COPD. The patient has had previous hospitalization for COPD exacerbation and last was approximately 6 months ago 3 non-small cell lung cancer with a previous right middle lobe resection and subsequent wedge resection of the right upper lobe lesion followed by radiation therapy/[employer]ber[employer]ife therapy to a lung nodule and 4 esophageal cancer with previous esophagectomy transhiatal 5 cachexia and weight loss 6 chronic atrial fibrillation 7 hypertension 8 hyperlipidemia 9 chronic malnourishment 10 chronic anemia. 11. Azotemia/acute kidney injury secondary to diuresis/resolved creatinine is now 0.8 Plan: Continue present treatment plan consider discharge planning to a rehab facility, overall picture is definitely poor and prognosis is also poor. Time with Patient: Less than 30
[2016-12-18] MEDS: MULTIVITAMINS, THERA 1 EACH TAB PO SCH (12:47)
[2016-12-18] MEDS: CHOLECALCIFEROL 1,000 UNIT TAB PO SCH (12:47)
[2016-12-18 12:58] VITALS: BP 108/60; PULSE 67
--- NOTE | 2016-12-18 14:10 | P.DS ---
Providers Date of admission: 12/05/16 13:09 Expected date of discharge: 12/18/16 Attending physician: Alex Thomas Consults: Pulmonology Cardiology Primary care physician: Alex Thomas [facility] Course: On December 05, Patient is a 76-year-old male, patient of mine, with medical history significant for lung cancer with resection 2, COPD, chronic hypoxic respiratory failure on home O2, GI stromal cancer, atrial fibrillation, and hypertension, admitted through the emergency department via EMS with complaints of increased shortness of breath and chest pressure ongoing for approximately 3 days. Patient recently finished a course of antibiotics for urinary tract infection. No history of fevers, chills, sweats, nausea, vomiting , or abdominal pain. No urinary urgency, dysuria, hematuria. No history of constipation or diarrhea. EKG on admission with evidence of ruben sinus rhythm with incomplete right bundle branch block with no definite acute ischemia. Chest x-ray with evidence of lung carcinoma, cardiomegaly, and COPD. Echocardiogram with evidence of preserved left ventricular systolic function with an EF between 55-60%; moderate aortic valve sclerosis; moderate to severe tricuspid regurgitation; and moderate to severe pulmonary hypertension. Patient 's blood pressure was elevated at 190/94 in the emergency department. Troponins less than 0.0122, NT proBNP elevated at 3790. Patient was admitted into selective care unit with consult requested for pulmonary service and cardiology service. She spent several days on selective. Her Solu-Medrol was slowly weaned. She had difficulties with the updrafts that she seemed to be more short of breath similar to a paradoxical response, after treatments. She had hypercapnia and confusion and was transferred to intensive care unit on December 08 He is in the intensive care unit for multiple days on BiPAP intermittently. She progressed enough to be transferred to the floor. She is on the stepdown unit for several days and Dr. Eaton her and myself agreed that she was improved enough to be discharged to an ECF. She is currently a DO NOT RESUSCITATE. She understands that with her severe oxygen dependent COPD, and she will not survive for very long time. She will go for rehabilitation and we will review her case on a day by day basis as far as her status. Final diagnosis 1. Acute on chronic hypercapnic Respiratory failure, present on admission, improved 2. Paroxysmal atrial fibrillation, present on admission 3. Hypertension 4. Anemia of chronic disease 5. Chronic diastolic congestive heart failure 6. Anxiety and depression 7. Severe pulmonary hypertension 8. 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 History of lung cancer, non-small cell carcinoma status post right middle lobe resection and, right upper lobe lesion: Stable 10. History of remote nicotine dependence. 11. GI prophylaxis: She'll continue on famotidine 12. DVT prophylaxis: She remains on Elequis 13. Medical debility: Physical therapy to evaluate. 14. Mild Acute renal failure/Renal insufficiency: Resolved, 15 protein calorie nutrition moderate, present on admission Patient Condition at Discharge: Stable Plan - Discharge Summary New Discharge Prescriptions: LORazepam [Ativan] 1 mg PO TID PRN #90 tab PRN Reason: Anxiety MORPHINE ORAL SOLN 20mg/mL [Roxanol Oral Soln Conc 20MG/ML] 5 mg PO Q1H PRN #30 ml PRN Reason: Nasal Congestion predniSONE 10 mg PO DAILY #60 tab Discharge Medication List Mirtazapine [Remeron] 15 mg PO HS 07/17/14 [History] Levalbuterol Hfa Inhaler [Xopenex Hfa Inhaler] 2 puff INHALATION QID PRN [History] Acetaminophen Tab [Tylenol] 325 mg PO Q4H PRN 06/15/15 [History] Apixaban [Eliquis] 2.5 mg PO BID 06/15/15 [History] Metoprolol Tartrate [Lopressor] 50 mg PO TID 06/15/15 [History] Mometasone/Formoterol [Dulera 100 Mcg/5 Mcg Inhaler] 2 puff PO RT-Q12H 06/15/15 [History] amLODIPine [Norvasc] 5 mg PO DAILY 06/15/15 [History] traMADol HCL [Ultram] 100 mg PO QID PRN 06/15/15 [History] Lisinopril [Zestril] 10 mg PO TID 07/24/16 [History] Cholecalciferol [Vitamin D3] 1,000 unit PO DAILY 11/28/16 [History] Ipratropium Nebulized [Atrovent Nebulized] 0.5 mg INHALATION RT-QID PRN [History] Levalbuterol Nebulized [Xopenex Nebulized] 1.25 mg INHALATION RT-DAILY PRN 11/28 [History] Multivitamin [Multivitamins Adult Gummies] 1 tab PO DAILY 11/28/16 [History] Oxymetazoline 0.05% Nasl [place] [Afrin 0.05% Nasal [place]] 2 spray EA NOSTRIL DAILY PRN 11/28/16 [History] Saline Nasal [place] 2 spray NASAL DAILY PRN 11/28/16 [History] Famotidine [Pepcid] 20 mg PO DAILY tab 12/18/16 [Rx] LORazepam [Ativan] 1 mg PO TID PRN #90 tab 12/18/16 [Rx] MORPHINE ORAL SOLN 20mg/mL [Roxanol Oral Soln Conc 20MG/ML] 5 mg PO Q1H PRN #30 ml 12/18/16 [Rx] Saline Nasal Gel [[place] Nasal Gel] 1 applic TOPICAL Q4HR PRN #0 gm 12/18/16 [Rx] Theophylline 24 Hour [Edson-24] 200 mg PO BID cap.er.24h 12/18/16 [Rx] cloNIDine HCL [Catapres] 0.1 mg PO BID tab 12/18/16 [Rx] clonazePAM [KlonoPIN] 0.125 mg PO Q4HR PRN #0 tab 12/18/16 [Rx] predniSONE 10 mg PO DAILY #60 tab 12/18/16 [Rx] Follow up Appointment(s)/Referral(s): Alex Thomas MD [Primary Care Provider] - 1-2 days Discharge Disposition: TRANSFER TO SNF/ECF
[2016-12-18 16:52] LABS: Glucose,Whole Blood 138 mg/dL (75-99)
[2016-12-18] MEDS ORDERED: IPRATROPIUM 0.5 MG/2.5 ML NEBU INHALATION PRN (18:54)
== END 2016-12-18 19:28 | DRG 291 ==
LOC: EC 09:57 → 6SEL 15:18 → OBSVTOIN 12-05 13:09 → 6ICU 12-08 11:37 → 6SEL 12-14 18:46
PROVIDERS: ADMIT Family Medicine; ATTEND Family Medicine
PROC: 30233N1 Transfusion of Nonautologous Red Blood Cells into Peripheral Vein, Percutaneous Approach (ICD-10-PCS; principal; 2016-12-17)
DX: I11.0 Hypertensive heart disease with heart failure (principal); J96.22 Acute and chronic respiratory failure with hypercapnia; J96.21 Acute and chronic respiratory failure with hypoxia; N17.9 Acute kidney failure, unspecified; R64 Cachexia; E44.0 Moderate protein-calorie malnutrition; E87.2 Acidosis; I48.92 Unspecified atrial flutter; I27.2 Other secondary pulmonary hypertension; I48.0 Paroxysmal atrial fibrillation; J44.1 Chronic obstructive pulmonary disease with (acute) exacerbation; I50.33 Acute on chronic diastolic (congestive) heart failure; E86.0 Dehydration; E87.5 Hyperkalemia; I08.2 Rheumatic disorders of both aortic and tricuspid valves; I45.10 Unspecified right bundle-branch block; D63.8 Anemia in other chronic diseases classified elsewhere; Z66 Do not resuscitate; F41.9 Anxiety disorder, unspecified; E78.5 Hyperlipidemia, unspecified; K21.9 Gastro-esophageal reflux disease without esophagitis; T50.2X5A Adverse effect of carbonic-anhydrase inhibitors, benzothiadiazides and other diuretics, initial encounter; Z99.81 Dependence on supplemental oxygen; Z68.21 Body mass index [BMI] 21.0-21.9, adult; Z91.19 Patient's noncompliance with other medical treatment and regimen; F32.9 Major depressive disorder, single episode, unspecified; Z90.2 Acquired absence of lung [part of]; Z92.3 Personal history of irradiation; Z85.01 Personal history of malignant neoplasm of esophagus; Z90.49 Acquired absence of other specified parts of digestive tract; Z85.118 Personal history of other malignant neoplasm of bronchus and lung; Z87.891 Personal history of nicotine dependence; Z88.1 Allergy status to other antibiotic agents; Z88.8 Allergy status to other drugs, medicaments and biological substances; Z79.01 Long term (current) use of anticoagulants; Z79.899 Other long term (current) drug therapy; Z82.5 Family history of asthma and other chronic lower respiratory diseases
CPT/HCPCS: 36415; 36600; 71010; 71020; 80048; 80053; 81001; 82150; 82272; 82550; 82553; 82805; 83036; 83690; 83735; 83880; 84100; 84132; 84484; 85025; 85027; 85610; 85730; 86850; 86900; 86901; 86920; 87324; 87502; 93005; 93306; 94640; 94660; 96366; 96374; 96375; 96376; 99291